=== PATIENT | male | born 1950 | race Caucasian/White ===

== ENCOUNTER 2020-10-30 00:34 | Inpatient (IN) | payer MEDICARE, OTHER ==
[~2020-10-30] VITALS: Ht 170.2 cm; Wt 119.4 kg
--- NOTE | 2020-10-30 05:05 | Tele-ICU Consult ---
History of Present Illness History of Present Illness Date Seen by Provider: Oct 30, 2020 Time Seen by Provider: 05:00 Date of Admission 70 M transferred from OSH for change in mental status and low SpO2 in 70's, changed to hi rebeca oxygen, 40 lpm 80% + COVID since 10/25, in ED remdesivir, decadron, azithromycin, also glu 300's pt poor historian, unable to reach family Past Medical/Social/Family Hx Patient Social History Tobacco Use?: Yes Smoking Status: Current Everyday Smoker Substance frequency: Once in a while Past Medical History GERD, HLD, DM, DJD, HTN, IBS s/p left knee replacment Review of Systems Constitutional: see HPI EENTM: see HPI Respiratory: see HPI Cardiovascular: see HPI Gastrointestinal: see HPI Genitourinary: see HPI Musculoskeletal: see HPI Skin: see HPI Psychiatric/Neurological: See HPI Sepsis Event Evaluation Height, Weight, BMI Height: '" Weight: lbs. oz. kg; BMI Method: Exam Exam Patient acknowledged, consented, and participated in this virtual visit which was conducted using real time audio/video Vital Signs Date Time Temp Pulse Resp B/P (MAP) Pulse Ox O2 Delivery O2 Flow Rate FiO2 10/30/20 04:30 94 Vapotherm 35.00 80 10/30/20 04:30 35.9 28 109/71 92 Vapotherm 35.00 80.00 10/30/20 04:30 80 Vapotherm 40 Height & Weight Height: '" Weight: lbs. oz. kg; BMI Method: General Appearance: Mild Distress Respiratory: Normal Breath Sounds, Accessory Muscle Use, Decreased Breath Sounds, Other (not working hard to breathe) Cardiovascular: Regular Rate, Rhythm Capillary Refill: Less Than 3 Seconds Gastrointestinal: normal bowel sounds, non tender Extremity: No Calf Tenderness, No Pedal Edema Neurologic/Psychiatric: Oriented x3, Other (poor memory) Assessment/Plan Assessment/Plan on vapotherm, SpO2 onlyin 80's, will change to BIPAP 12/5 FiO2 80%, get CXR Critical Care: Critically Ill Patient Time spent with patient (mins): 25 CHENCHO MCKEON MD Oct 30, 2020 05:05
[2020-10-30 05:17] VITALS: BP 128/81
[2020-10-30] MEDS ORDERED: LISI20TA26 PO (05:27)
[2020-10-30] MEDS ORDERED: GLMP2T PO (05:27)
[2020-10-30] MEDS ORDERED: ATOR20TA49 PO (05:27)
[2020-10-30] MEDS ORDERED: METF-397 PO (05:28)
[2020-10-30 05:53] LABS: BASOPHILS % (AUTO) 0 % (0-10); EOSINOPHILS % (AUTO) 0 % (0-10); HEMATOCRIT 39 % (40-54); HEMOGLOBIN 13.6 g/dL (13.3-17.7); LYMPHOCYTES # (AUTO) 0.4 10^3/uL (1.0-4.0); LYMPHOCYTES % (AUTO) 15 % (12-44); MEAN CORPUSCULAR HEMOGLOBIN 32 pg (25-34); MEAN CORPUSCULAR HGB CONC 35 g/dL (32-36); MEAN CORPUSCULAR VOLUME 92 fL (80-99); MEAN PLATELET VOLUME 12.1 fL (9.0-12.2); MONOCYTES # (AUTO) 0.1 10^3/uL (0.0-1.0); MONOCYTES % (AUTO) 4 % (0-12); NEUTROPHILS # (AUTO) 2.1 10^3/uL (1.8-7.8); NEUTROPHILS % (AUTO) 80 % (42-75); PLATELET COUNT 63 10^3/uL (130-400); WHITE BLOOD COUNT 2.7 10^3/uL (4.3-11.0)
[2020-10-30 06:02] LABS: ALBUMIN 3.4 GM/DL (3.2-4.5)
[2020-10-30 06:04] LABS: CALCIUM 7.9 MG/DL (8.5-10.1)
[2020-10-30 06:05] LABS: TOTAL PROTEIN 7.1 GM/DL (6.4-8.2)
[2020-10-30 06:07] LABS: BILIRUBIN,TOTAL 0.8 MG/DL (0.1-1.0)
[2020-10-30 06:08] LABS: PHOSPHORUS 4.6 MG/DL (2.3-4.7)
[2020-10-30 06:09] LABS: CREATININE SERUM 1.84 MG/DL (0.60-1.30)
[2020-10-30 06:11] LABS: MAGNESIUM 2.5 MG/DL (1.6-2.4)
[2020-10-30] MEDS ORDERED: SOD POLYSTERENE 15 GM/60 ML (KAYEXALATE) UNIT DOSE PO ONE (06:30)
[2020-10-30] MEDS ORDERED: guaiFENesin/DM (ROBITUSSIN DM) 10 ML UDC PO PRN (06:30)
[2020-10-30] MEDS ORDERED: diphenhydrAMINE 25 MG TAB (BENADRYL) PO PRN (06:30)
[2020-10-30] MEDS ORDERED: polyethylene glycoL POWDER 17 GM (MIRALAX) PACK PO PRN (06:30)
[2020-10-30] MEDS ORDERED: ANTACID SUSP 30 ML UDC (MYLANTA) PO PRN (06:30)
[2020-10-30] MEDS ORDERED: ONDANSETRON 4 MG (ZOFRAN) ORAL DISSOLVE TAB PO PRN (06:30)
[2020-10-30] MEDS ORDERED: ACETAMINOPHEN 325 MG TABLET PO PRN (06:30)
[2020-10-30] MEDS ORDERED: MELATONIN 3 MG TABLET PO PRN (06:30)
[2020-10-30] MEDS ORDERED: ONDANSETRON 4 MG/2 ML (SDV) Z0FRAN IV PRN (06:30)
[2020-10-30] MEDS: NS IV 1000 ML 1,000 ML IV SCH ×3 (06:56→22:14)
[2020-10-30 07:35] LABS: ABG BASE EXCESS -6.7 MMOL/L (-2.5-2.5); ABG OXYGEN SATURATION 91 % (94-100); ABG PCO2 36 MMHG (35-45); ABG PO2 69 MMHG (79-93); ABG TCO2 19.3 MMOL/L (21.0-31.0)
--- NOTE | 2020-10-30 07:39 | Diagnostic Imaging Report ---
EXAMINATION: Chest radiograph, portable AP view. DATE: 10/30/2020 5:56 AM INDICATION: 70-year-old male, hypoxia. History of COVID 19 pneumonia. COMPARISON: None. FINDINGS: Heart size is within normal limits. There is no identified pneumothorax. There is multifocal bilateral lung consolidation. IMPRESSION: 1. Multifocal bilateral lung consolidation which would be consistent with provided history of COVID 19 infection and multifocal pneumonia/pneumonitis although is not a specific imaging appearance. Report was faxed to [facility] by nora at 7:38AM. Dictated by: Dictated on workstation # [id number]
[2020-10-30 07:42] LABS: ABG PH 7.32 (7.37-7.43); ALLENS TEST YES-POS
[2020-10-30 07:43] LABS: INSPIRED O2 80%; PATIENT TEMP 37; VENTILATOR NO
[2020-10-30 07:46] VITALS: BP 125/30
[2020-10-30] MEDS: inSUlin ASPART (NovoLOG) 1 UNIT/0.01 ML (CHARGE PER UNIT) SC SCH ×2 (08:22→12:21)
--- NOTE | 2020-10-30 09:14 | Tele-ICU Progress Note ---
Subjective Date Seen by a Provider: Oct 30, 2020 Time Seen by a Provider: 09:14 Subjective/Events-last exam This patient last night admitted with Covid19 pneumonia currently he is on on BiPAP with 18/8 and 100% FiO2 with which his saturation is above 90%. His work of breathing is high. I have made a video visit and discussed with the RN that he would need to be intubated. He has a hyperglycemia with insulin on a sliding scale coverage. At this time we do not have much of a detailed history Review of Systems ROS PER ATTENDING PHYSICIAN Sepsis Event Evaluation Height, Weight, BMI Height: '" Weight: lbs. oz. kg; 36.21 BMI Method: Exam Exam Patient acknowledged, consented, and participated in this virtual visit which was conducted using real time audio/video Vital Signs Date Time Temp Pulse Resp B/P (MAP) Pulse Ox O2 Delivery O2 Flow Rate FiO2 10/30/20 09:00 67 23 111/69 91 NIV Bilevel 80.00 10/30/20 08:03 36.0 10/30/20 08:00 65 23 140/81 90 NIV Bilevel 80.00 10/30/20 07:46 66 30 93 100.00 10/30/20 07:00 64 19 140/93 94 NIV Bilevel 80.00 10/30/20 07:00 63 10/30/20 06:32 94 NIV Bilevel 80.00 10/30/20 06:00 60 23 112/69 91 NIV Bilevel 70.00 10/30/20 05:30 63 28 116/95 92 NIV Bilevel 70.00 10/30/20 05:17 63 23 95 70.00 10/30/20 05:15 92 NIV Bilevel 70.00 10/30/20 05:00 68 32 100/59 89 Vapotherm 35.00 80.00 10/30/20 04:45 69 14 96/62 94 Vapotherm 35.00 80.00 10/30/20 04:30 94 Vapotherm 35.00 80 10/30/20 04:30 70 10/30/20 04:30 35.9 28 109/71 92 Vapotherm 35.00 80.00 10/30/20 04:30 80 Vapotherm 40 10/30/20 04:15 66 14 125/66 94 Vapotherm 35.00 80.00 I & O 10/30/20 07:00 Intake Total 0 ml Output Total 0 ml Balance 0 ml Height & Weight Height: '" Weight: lbs. oz. kg; 36.21 BMI Method: General Appearance: Mild Distress Respiratory: Normal Breath Sounds, Accessory Muscle Use, Decreased Breath Sounds, Other (not working hard to breathe) Cardiovascular: Regular Rate, Rhythm Capillary Refill: Less Than 3 Seconds Gastrointestinal: normal bowel sounds, non tender Extremity: No Calf Tenderness, No Pedal Edema Neurologic/Psychiatric: Oriented x3, Other (poor memory) Other comments pe per RN Results Lab Laboratory Tests 10/30/20 05:40 Meds reviewed Radiology reviewed Assessment/Plan Assessment/Plan 1. Acute Covid19 pneumonia with ARDS. 2. Acute hypoxic respiratory failure currently on a BiPAP ventilation with increasing work of breathing. 3. Hyperglycemia probably secondary to steroids 4. High risk for DVT. Recommendations 1. I have discussed with the RN to discuss with the patient's family and attending physician and subsequently advised to intubate the patient and put on mechanical ventilation. 2. We will continue dexamethasone and insulin with a sliding scale coverage 3. DVT prophylaxis 4. Ulcer prophylaxis.. Critical Care: Critically Ill Patient Time spent with patient (mins): 35 HARRIS LEES MD Oct 30, 2020 09:14
[2020-10-30] MEDS ORDERED: PROPOFOL DRIP (ICU) 100 ML IV ONE ×2 (10:00→11:49)
[2020-10-30 10:43] VITALS: BP 86/61
--- NOTE | 2020-10-30 10:56 | Diagnostic Imaging Report ---
INDICATION: Intubation. FINDINGS: Endotracheal tube terminates 3.5 cm above the irvin. An enteric tube extends to the distal stomach or into the first portion of the duodenum. Lung volumes are diminished. Interstitial infiltrates throughout both lungs are slightly less apparent than on the previous exam. There is no large effusion or evidence of pneumothorax. Heart size is unchanged. IMPRESSION: 1. Appropriate positioning of endotracheal tube and enteric tube. 2. Diffuse bilateral interstitial infiltrates are less apparent likely relating to technique. Dictated by: Dictated on workstation # [id number]
[2020-10-30 10:57] LABS: POTASSIUM 4.7 MMOL/L (3.6-5.0)
[2020-10-30 10:58] LABS: CALCIUM 8.3 MG/DL (8.5-10.1)
--- NOTE | 2020-10-30 11:02 | Anesthesia-Procedure Note ---
Procedures/Interventions Procedure Start/Stop/Diagnosis Date of Procedure: Oct 30, 2020 Start Time: 09:45 Stop Time: 10:00 Intubation RSI: Yes Intubation Method: orotracheal Videoscope used: Yes Grade View: 1 Medications: Etomidate, Rocuronium, Succinylcholine Positive End Tide CO2: Yes Breath Sounds after Intubation: bilateral-equal Intubated with ease: Yes Intubation Complications: no complications Post Intubation Xray-done: Yes Care turned over to: icu MARIA ELENA LOPEZ CRNA Oct 30, 2020 11:02
[2020-10-30 11:03] LABS: CREATININE SERUM 1.77 MG/DL (0.60-1.30)
[2020-10-30] MEDS ORDERED: NS IV 1000 ML 1,000 ML IV SCH (11:30)
[2020-10-30] MEDS ORDERED: D5 1/2 NS 1000 ML IV SOLUTION 1,000 ML IV SCH (11:30)
[2020-10-30] MEDS: fentaNYL DRIP PRE-MIX 250 ML IV SCH (11:40)
[2020-10-30] MEDS: PANTOPRAZOLE 40 MG (PROTONIX) VIAL IV SCH (11:46)
--- NOTE | 2020-10-30 11:57 | CONSULTATION REPORT ---
DATE OF SERVICE: 10/30/2020 HISTORY OF PRESENT ILLNESS: The patient is a 70-year-old male, who presented to [facility] in [place] with complaints of shortness of breath. He reports that he has had associated fatigue and weakness for about 1 week. He reports that he did test positive for COVID on 10/25/2020 and had not gotten any better. He reports that he did not have the COVID vaccine. He also denied any chest pain as well as no nausea or vomiting and no diarrhea. His initial O2 sat was 88% and respirations are 25. It was decided that he would need a higher level of care than their facility and was then transferred to [facility]. After being admitted, he did have a change in mental status and O2 sats in the 70s on Vapotherm; however, the patient continued to decline and was eventually placed on BiPAP and eventually had to be intubated due to declining condition. We were then consulted for central line placement due to needing multiple medications as well as possible vasopressors. MEDICAL HISTORY: Arthritis, diabetes, gastroesophageal reflux disease, hypertension, hyperlipidemia, irritable bowel syndrome. PAST SURGICAL HISTORY: Left total knee arthroplasty 2019, dental surgery, left knee surgery in 1977, flexible colonoscopy with removal of tumor polyp by snare technique in 2018. ALLERGIES: SHELLFISH. MEDICATIONS: Atorvastatin 20 mg, glimepiride 2 mg, lisinopril 20 mg, metformin 500 mg. SOCIAL HISTORY: Positive for smoke. Rare for alcohol. FAMILY HISTORY: Mother, father, diabetes, hypertension. Brother, some form of cancer, hypertension. Father, stroke. VITAL SIGNS: Blood pressure 85/64, pulse 74, respirations 20, O2 95% on the ventilator. This is a well-nourished, obese male. He is currently on the ventilator and sedated and review of systems is unable to be obtained. PHYSICAL EXAMINATION: CHEST: Diminished breath sounds bilaterally. HEART: Regular, no murmurs. EXTREMITIES: No lower extremity edema. Negative Homans sign. HEENT: No scleral icterus. NECK: No cervical lymphadenopathy. ABDOMEN: Soft, nontender, nondistended. SKIN: Warm, dry and pink. NEUROLOGIC: Unable to assess at this time. ASSESSMENT AND PLAN: A 70-year-old male with respiratory distress secondary to being COVID positive. At this time, he has had a decline in status and will need a central line for possible vasopressors as well as the need for multiple medications. At this time, we will proceed with placement of a central venous catheter. Job ID: [id number] DocumentID: [id number] Dictated Date: 10/30/2020 11:34:23 Taxicab Dispatcher Date: 10/30/2020 11:57:03 Dictated By: GIRMA HOLT APRN
[2020-10-30] MEDS ORDERED: AZITHROMYCIN INJECTION 500 MG in NS (IVPB) 250 ML IV ONE (12:15)
[2020-10-30] MEDS ORDERED: CEFEPIME INJECTION 2,000 MG in WATER (STERILE) FOR INJECTION 20 ML IV ONE (12:15)
--- NOTE | 2020-10-30 12:30 | Diagnostic Imaging Report ---
EXAMINATION: Chest radiograph, portable AP view. DATE: 10/30/2020 12:11 PM INDICATION: 70-year-old male, central line placement. Intubated. COMPARISON: October 30, 2020 at 1018 hours. FINDINGS: The endotracheal tube is approximately 5.5 cm above the irvin. The left-sided intravenous line is new and overlies the mid SVC. Heart size and mediastinal contours are unchanged. There is no identified pneumothorax. There is no large pleural effusion. There are bilateral interstitial and/or alveolar opacities which are unchanged. IMPRESSION: 1. Newly placed left-sided central venous line overlies the mid SVC. 2. Unchanged bilateral interstitial and/or alveolar opacities. Dictated by: Dictated on workstation # [id number]
[2020-10-30] MEDS ORDERED: ROCURONIUM 10 MG/ML 5 ML SYRINGE IV ONE (13:00)
[2020-10-30] MEDS ORDERED: ETOMIDATE IV SOLN 20 MG/10 ML VIAL IV ONE (13:00)
[2020-10-30] MEDS ORDERED: SUCCINYLCHOLINE INJ 100 MG/5 ML SYR/VIAL INJ ONE (13:00)
[2020-10-30] MEDS: ENOXAPARIN 40 MG/0.4 ML (LOVENOX) SYR SC SCH (13:05)
[2020-10-30] MEDS: PROPOFOL DRIP (ICU) 100 ML IV SCH ×2 (13:35→18:32)
[2020-10-30 13:40] LABS: ABG BASE EXCESS -8.8 MMOL/L (-2.5-2.5); ABG OXYGEN SATURATION 98 % (94-100); ABG PCO2 37 MMHG (35-45); ABG PO2 103 MMHG (79-93); ABG TCO2 18.2 MMOL/L (21.0-31.0)
[2020-10-30 13:43] LABS: BILIRUBIN,URINE NEGATIVE (NEGATIVE); CLARITY,URINE SL CLOUDY; COLOR,URINE YELLOW; GLUCOSE, URINE (UA) 2+ (NEGATIVE); KETONES,URINE NEGATIVE (NEGATIVE); LEUKOCYTE ESTERASE ,URINE NEGATIVE (NEGATIVE); NITRITE,URINE NEGATIVE (NEGATIVE); PROTEIN,URINE TRACE (NEGATIVE)
[2020-10-30 13:45] LABS: ABG PH 7.28 (7.37-7.43); ALLENS TEST YES-POS
[2020-10-30 13:46] LABS: INSPIRED O2 80%; PATIENT TEMP 35.4; VENTILATOR YES
[2020-10-30 13:50] LABS: BACTERIA,URINE NEGATIVE /HPF; RBC,URINE RARE /HPF
[2020-10-30] MEDS ORDERED: SODIUM BICARB 8.4% 50 MEQ/50 ML (ABBOTT) SYR IV ONE (14:15)
--- NOTE | 2020-10-30 14:49 | OPERATIVE REPORT ---
DATE OF SERVICE: 10/30/2020 PREOPERATIVE DIAGNOSIS: COVID-19 respiratory failure. POSTOPERATIVE DIAGNOSIS: COVID-19 respiratory failure. PROCEDURE: Placement of left subclavian central venous catheter. SURGEON: Akin Luis MD ANESTHESIA: Local. ESTIMATED BLOOD LOSS: Minimal. DISPOSITION: The patient tolerated the procedure well. INDICATIONS: The patient is a 70-year-old male who began feeling fatigued as well as short of breath 10/25/2020 and was found to be positive. He continued to struggle with breathing and was admitted and initially placed on Vapotherm and then to a CPAP and eventually to an FiO2 of 100%. However, continued to decline with low oxygen saturation rates. He was then intubated. He has poor peripheral venous circulation and will require multiple IV drips and medications and will require a central venous catheter. DESCRIPTION OF PROCEDURE: The chest and neck were prepped and draped in standard surgical fashion. A 1% lidocaine was used to anesthetize the left subclavian region. The left subclavian vein was then cannulated with drawing of venous blood. The guidewire was then inserted without any resistance. Cannulating needle removed and a skin incision made using 11 blade. A tract was then created using a venous dilator and through this opening, a triple lumen central venous catheter was placed over the guidewire using Seldinger technique. The guidewire was removed, and all three ports isis venous blood and saline pushed in without any resistance. The catheter was then sutured to the skin using interrupted 3-0 silk sutures. Catheter was then cleaned and covered with Op-Site. The patient tolerated the procedure well. We will get a post-procedure chest x-ray. Job ID: [id number] DocumentID: [id number] Dictated Date: 10/30/2020 11:49:24 Canned Food Reconditioning Inspector Date: 10/30/2020 14:48:38 Dictated By: AKIN LUIS MD
[2020-10-30 15:31] VITALS: BP 101/67
[2020-10-30] MEDS: RT-ALBUTEROL/IPRATROPIUM 3 ML (DUONEB) VIAL INH SCH ×3 (15:31→22:05)
[2020-10-30 17:40] LABS: POTASSIUM 3.9 MMOL/L (3.6-5.0)
[2020-10-30 17:41] LABS: CALCIUM 7.6 MG/DL (8.5-10.1)
[2020-10-30 17:45] LABS: CREATININE SERUM 1.87 MG/DL (0.60-1.30)
[2020-10-30] MEDS ORDERED: CEFEPIME INJECTION 1,000 MG in WATER (STERILE) FOR INJECTION 10 ML IV SCH (18:00)
[2020-10-30] MEDS ORDERED: NS IV 500 ML 500 ML IV ONE (18:30)
[2020-10-30 18:52] VITALS: BP 97/59
--- NOTE | 2020-10-30 20:36 | History & Physical-Hospitalist ---
History of Present Illness HPI/Chief Complaint Diego Perry is a 70 year old male with PMH HTN, T2DM, HLD, obesity, who presented with shortness of breath. He reports feeling sick for weeks. He is very tired. He is wearing BiPAP. He would like to be put on the ventilator. He does not want to be on it senior care. He feels exhausted. If his heart stops he would like us to let him pass away naturally without resuscitative efforts. I spoke with his daughter via telephone and updated her on his condition and plan. Source: patient Exam Limitations: clinical condition Date Seen 10/30/20 Time Seen by a Provider: 09:20 Attending Physician Lovely Munroe MD PCP Referring Physician Date of Admission Oct 30, 2020 at 04:17 Home Medications & Allergies Home Medications Reviewed patient Home Medication Reconciliation performed by pharmacy medication reconciliations computer laboratory technician and/or nursing. Patients Allergies have been reviewed. Allergies Allergies Coded Allergies shellfish derived (Verified Allergy, Unknown, 10/30/20) PT REPORTS ALLERGY, UNKNOWN SEVERITY Past Ssifvjj-Smntud-Jontrd Hx Patient Social History Tobacco Use?: Yes Smoking Status: Current Everyday Smoker Use of E-Cig and/or Vaping dev: No Substance use?: No Substance frequency: Once in a while Alcohol Use?: No Pt feels they are or have been: No Immunizations Up To Date First/Initial COVID19 Vaccinat: PT UNABLE TO RECALL IF HE HAD CURRENT VACCINES FOR FLU/PNA/OR COVID 19 Past Medical History Hypertension, Hypotension Diabetes, Non-Insulin dep GERD, HLD, DM, DJD, HTN, IBS s/p left knee replacment Family Medical History No Pertinent Family Hx Review of Systems Constitutional: see HPI Physical Exam Physical Exam Vital Signs Vital Signs - First Documented 10/30/20 10/30/20 04:15 04:30 Temp 35.9 Pulse 66 Resp 14 B/P (MAP) 125/66 Pulse Ox 94 O2 Delivery Vapotherm O2 Flow Rate 35.00 80.00 FiO2 40 Capillary Refill : Less Than 3 Seconds Height, Weight, BMI Height: '" Weight: lbs. oz. kg; 36.21 BMI Method: General Appearance: Moderate Distress (uncomfortable, tired), Obese Respiratory: Decreased Breath Sounds, Respiratory Distress (tachypnea), Other (wearing BiPAP) Cardiovascular: Regular Rate, Rhythm, No Murmur Gastrointestinal: Normal Bowel Sounds, Non Tender, Soft Extremity: Normal Inspection, Non Tender, No Pedal Edema Neurologic/Psychiatric: Alert, Other (anxious, fatigued) Skin: Normal Color, Warm/Dry Results Results/Procedures Labs Laboratory Tests 10/30/20 05:40 10/30/20 09:16 10/30/20 17:07 Patient resulted labs reviewed. Imaging: Reviewed Imaging Report Assessment/Plan Admission Diagnosis Acute respiratory failure due to COVID-19 Admission Status: Inpatient Order (span 2 midnights) Reason for Inpatient Admission: Respiratory failure Assessment and Plan Acute respiratory failure due to COVID-19 Lymphopenia associated with COVID-19 Thrombocytopenia associated with COVID-19 Acute kidney injury due to COVID-19 COVID+, transferred from [facility] ER Requiring maximal support on BiPAP Plan to intubate Decadron Not given Remdesivir due to severe hypoxia Not given Actemra due to thrombocytopenia and prolonged course D-dimer moderately elevated Prophylactic Lovenox Procalcitonin elevated Started on Cefepime and Azithromycin IV fluids Monitor blood counts TeleICU consulted T2DM with ketoacidosis Hyperkalemia Hyponatremia Blood glucose >500, ketones elevated, acidotic Started on insulin gtt IV fluids Monitor and correct electrolytes as needed HTN HLD Home meds held Obesity Clinically significant, no acute management needs DVT prophylaxis: Lovenox Diagnosis/Problems Diagnosis/Problems (1) Acute respiratory failure due to COVID-19 Status: Acute (2) Lymphopenia associated with COVID-19 Status: Acute (3) Thrombocytopenia associated with COVID-19 Status: Acute (4) Acute kidney injury due to COVID-19 Status: Acute (5) Hyperkalemia Status: Acute (6) Hyponatremia Status: Acute (7) T2DM (type 2 diabetes mellitus) Status: Acute Qualifiers: Diabetes mellitus senior care insulin use: without senior care use Diabetes mellitus complication status: with ketoacidosis Diabetes mellitus complication detail: without coma Qualified Codes: E11.10 - Type 2 diabetes mellitus with ketoacidosis without coma (8) HTN (hypertension) Status: Chronic (9) HLD (hyperlipidemia) Status: Chronic (10) Obesity Status: Chronic LOVELY MUNROE MD Oct 30, 2020 20:36
[2020-10-30] MEDS: CEFEPIME INJECTION 1,000 MG in WATER (STERILE) FOR INJECTION 10 ML IV SCH (21:00)
[2020-10-30 22:05] VITALS: BP 90/60
[2020-10-31] MEDS: PROPOFOL DRIP (ICU) 100 ML IV SCH ×7 (00:57→19:59)
[2020-10-31] MEDS: RT-ALBUTEROL/IPRATROPIUM 3 ML (DUONEB) VIAL INH SCH ×6 (02:23→22:36)
[2020-10-31 02:24] VITALS: BP 94/53
[2020-10-31] MEDS ORDERED: NOREPINEPHRINE 8 MG/250 ML 250 ML IV ONE (02:56)
--- NOTE | 2020-10-31 02:59 | Tele-ICU Progress Note ---
Progress Note Pt with COVID PNA, On Vent , sedated. Hypotension, likely 2/2 sedation, will avoid fluid boluses, Levophed ordered with parameters. Interventions Major-Hypotension - evaluation and management Focused Exam Height, Weight, BMI Height: '" Weight: lbs. oz. kg; 36.21 BMI Method: FRANCISCO ALEXANDER MD Oct 31, 2020 02:59
[2020-10-31] MEDS: NOREPINEPHRINE 8 MG/250 ML 250 ML IV SCH ×2 (03:13→15:31)
[2020-10-31 03:28] LABS: ABG BASE EXCESS -3.3 MMOL/L (-2.5-2.5); ABG OXYGEN SATURATION 95 % (94-100); ABG PCO2 47 MMHG (35-45); ABG PO2 117 MMHG (79-93); ABG TCO2 23.6 MMOL/L (21.0-31.0); BASOPHILS % (AUTO) 0 % (0-10); EOSINOPHILS % (AUTO) 0 % (0-10); HEMATOCRIT 34 % (40-54); HEMOGLOBIN 11.2 g/dL (13.3-17.7); MEAN CORPUSCULAR HGB CONC 33 g/dL (32-36); PLATELET COUNT 88 10^3/uL (130-400)
[2020-10-31 03:30] LABS: LYMPHOCYTES # (AUTO) 0.3 10^3/uL (1.0-4.0); LYMPHOCYTES % (AUTO) 7 % (12-44); MEAN CORPUSCULAR HEMOGLOBIN 32 pg (25-34); MEAN CORPUSCULAR VOLUME 96 fL (80-99); MEAN PLATELET VOLUME 11.8 fL (9.0-12.2); MONOCYTES # (AUTO) 0.1 10^3/uL (0.0-1.0); MONOCYTES % (AUTO) 4 % (0-12); NEUTROPHILS # (AUTO) 3.4 10^3/uL (1.8-7.8); NEUTROPHILS % (AUTO) 89 % (42-75); WHITE BLOOD COUNT 3.9 10^3/uL (4.3-11.0)
[2020-10-31 03:33] LABS: ALLENS TEST YES-POS; PATIENT TEMP 36.8; VENTILATOR YES
[2020-10-31 03:37] LABS: POTASSIUM 3.2 MMOL/L (3.6-5.0)
[2020-10-31 03:38] LABS: CALCIUM 7.1 MG/DL (8.5-10.1)
[2020-10-31 03:40] LABS: TOTAL PROTEIN 5.6 GM/DL (6.4-8.2)
[2020-10-31 03:41] LABS: BILIRUBIN,TOTAL 0.4 MG/DL (0.1-1.0)
[2020-10-31 03:43] LABS: CREATININE SERUM 1.81 MG/DL (0.60-1.30); PHOSPHORUS 2.7 MG/DL (2.3-4.7)
[2020-10-31 03:46] LABS: MAGNESIUM 2.5 MG/DL (1.6-2.4)
[2020-10-31] MEDS: CEFEPIME INJECTION 1,000 MG in WATER (STERILE) FOR INJECTION 10 ML IV SCH ×3 (04:00→19:59)
[2020-10-31 04:04] LABS: BAND NEUTROPHILS 5 %; LYMPHOCYTES % (MANUAL) 8 %; MONOCYTES % (MANUAL) 3 %; NEUTROPHILS % (MANUAL) 84 %; RBC MORPH NORMAL
[2020-10-31] MEDS ORDERED: POTASSIUM CL 10MEQ/50ML IVPB 200 ML IV ONE (04:18)
[2020-10-31] MEDS: POTASSIUM CL 10MEQ/50ML IVPB 50 ML IV SCH ×3 (04:43→05:37)
[2020-10-31] MEDS: NS IV 1000 ML 1,000 ML IV SCH ×3 (05:36→20:03)
[2020-10-31 07:28] VITALS: BP 106/61
--- NOTE | 2020-10-31 07:51 | Tele-ICU Progress Note ---
Subjective Date Seen by a Provider: Oct 31, 2020 Time Seen by a Provider: 07:48 Subjective/Events-last exam he was started on low dose levophed and insulin drip. glucoe is 99 on insulin 22 units drip. vent settings are 45% fio2/rr22 peep22/tv 450 Review of Systems ROS PER ATTENDING PHYSICIAN Sepsis Event Evaluation Height, Weight, BMI Height: '" Weight: lbs. oz. kg; 36.21 BMI Method: Exam Exam Patient acknowledged, consented, and participated in this virtual visit which was conducted using real time audio/video Vital Signs Date Time Temp Pulse Resp B/P (MAP) Pulse Ox O2 Delivery O2 Flow Rate FiO2 10/31/20 07:28 76 22 94 45 10/31/20 07:00 77 10/31/20 06:00 36.3 82 22 107/59 95 Mechanical Ventilator 50.00 10/31/20 05:00 36.3 86 22 121/66 96 Mechanical Ventilator 50.00 10/31/20 04:00 36.3 86 22 98/58 95 Mechanical Ventilator 50.00 10/31/20 03:58 95 Mechanical Ventilator 50 10/31/20 03:19 36.3 Mechanical Ventilator 50.00 10/31/20 03:15 36.3 95 22 95/46 93 Mechanical Ventilator 50.00 10/31/20 03:13 80/49 10/31/20 02:24 97 22 94 50 10/31/20 02:00 36.3 81 22 98/62 96 Mechanical Ventilator 50.00 10/31/20 01:00 86 10/31/20 01:00 36.3 86 22 94/63 96 Mechanical Ventilator 50.00 10/31/20 00:57 86 10/31/20 00:06 96 Mechanical Ventilator 50 10/31/20 00:00 36.2 85 18 101/60 96 Mechanical Ventilator 50.00 10/30/20 23:00 36.3 91 22 95/63 95 Mechanical Ventilator 50.00 10/30/20 22:53 36.5 Mechanical Ventilator 50.00 10/30/20 22:17 36.6 Mechanical Ventilator 50.00 10/30/20 22:05 73 22 97 50 10/30/20 22:00 36.5 72 22 90/60 97 Mechanical Ventilator 55.00 10/30/20 21:00 36.4 79 22 94/61 97 Mechanical Ventilator 55.00 10/30/20 20:00 36.4 73 22 98/63 97 Mechanical Ventilator 55.00 10/30/20 20:00 93 Mechanical Ventilator 55 10/30/20 19:00 73 10/30/20 19:00 36.3 Mechanical Ventilator 55.00 10/30/20 19:00 36.3 73 22 95/57 97 Mechanical Ventilator 55.00 10/30/20 18:52 70 22 98 55 10/30/20 18:32 70 85/62 10/30/20 18:00 36.2 70 22 93/62 98 Mechanical Ventilator 100.00 10/30/20 17:00 36.0 71 22 96/66 95 Mechanical Ventilator 100.00 10/30/20 16:25 94 Mechanical Ventilator 65 10/30/20 16:00 35.6 70 22 91/68 94 Mechanical Ventilator 100.00 10/30/20 15:31 63 22 92 65 10/30/20 15:00 35.3 63 22 85/61 100 Mechanical Ventilator 100.00 10/30/20 14:00 65 32 100/75 100 Mechanical Ventilator 100.00 10/30/20 13:35 71 85/64 10/30/20 13:00 65 39 105/81 100 Mechanical Ventilator 100.00 10/30/20 13:00 71 10/30/20 12:45 94 Mechanical Ventilator 100 10/30/20 12:18 35.0 10/30/20 12:00 70 21 110/72 100 Mechanical Ventilator 100.00 10/30/20 11:00 74 20 85/64 95 NIV Bilevel 80.00 10/30/20 10:43 77 20 96 65 10/30/20 10:00 69 27 114/66 90 NIV Bilevel 80.00 10/30/20 09:00 67 23 111/69 91 NIV Bilevel 80.00 10/30/20 08:10 92 NIV Bilevel 100 10/30/20 08:03 36.0 10/30/20 08:00 65 23 140/81 90 NIV Bilevel 80.00 I & O 10/31/20 07:00 Intake Total 3270 ml Output Total 2300 ml Balance 970 ml Height & Weight Height: '" Weight: lbs. oz. kg; 36.21 BMI Method: General Appearance: Moderate Distress (uncomfortable, tired), Obese Respiratory: Decreased Breath Sounds, Respiratory Distress (tachypnea), Other (INTUBATED, ON VENTILLATOR) Cardiovascular: Regular Rate, Rhythm, No Murmur Capillary Refill: Less Than 3 Seconds Gastrointestinal: normal bowel sounds, non tender Extremity: Normal Inspection, Non Tender, No Pedal Edema Neurologic/Psychiatric: Alert, Other (anxious, fatigued) Skin: Normal Color, Warm/Dry Other comments PE PER ATTENDING PHYSICIAN Results Lab Laboratory Tests 10/30/20 05:40 10/30/20 09:16 10/30/20 17:07 10/31/20 03:10 Meds reviewed Radiology cxr reviewed Assessment/Plan Assessment/Plan Assessment/Plan 1. Acute Covid19 pneumonia with ARDS. 2. Acute hypoxic respiratory failure currently on a BiPAP ventilation with increasing work of breathing. 3. Hyperglycemia probably secondary to steroids 4. High risk for DVT. Recommendations 1. continue current vent settings and wean fio2 first and the slowly wean peep 2. We will continue dexamethasone and start levmir 20 units s/q this am start to wean insulin drip in the next 2-3 hours..ISS 3. DVT prophylaxis 4. Ulcer prophylaxis. Critical Care: Critically Ill Patient Time spent with patient (mins): 35 HARRIS LEES MD Oct 31, 2020 07:51
--- NOTE | 2020-10-31 07:52 | Diagnostic Imaging Report ---
INDICATION: Pneumonia, intubated. TECHNIQUE: Single view chest 4:30 AM. CORRELATION STUDY: 10/30/2020 FINDINGS: Endotracheal tube, left-sided central line and gastric tube remain in place. Heart size and mediastinum are generally stable. Vasculature appears slightly increased. Bilateral pulmonary opacities overall appear adversely changed from prior. Question small pleural effusions. IMPRESSION: 1. Stable support lines and tubes. 2. Increasing mixed alveolar and interstitial pulmonary opacities at both lung ni, left greater than right. Probable bilateral pleural effusions also adversely changed. Dictated by: Dictated on workstation # [id number]
--- NOTE | 2020-10-31 08:20 | Progress Note - Hospitalist ---
Subjective HPI/CC On Admission Date Seen by Provider: Oct 31, 2020 Time Seen by Provider: 12:30 Diego Perry is a 70 year old male with PMH HTN, T2DM, HLD, obesity, who presented with shortness of breath. He reports feeling sick for weeks. He is very tired. He is wearing BiPAP. He would like to be put on the ventilator. 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 If his heart stops he would like us to let him pass away naturally without resuscitative efforts. I spoke with his daughter via telephone and updated her on his condition and plan. Subjective/Events-last exam Patient maintained on ventilator Off insulin drip Levophed at 0.11 mcg infusion PEEP of 8 FiO2 of 45% Objective Exam Vital Signs Vital Signs Date Time Temp Pulse Resp B/P (MAP) Pulse Ox O2 Delivery O2 Flow Rate FiO2 10/31/20 16:20 92 Mechanical Ventilator 50 10/31/20 16:00 36.9 101 23 159/76 50.00 Capillary Refill : Less Than 3 Seconds General Appearance: No Apparent Distress, WD/WN, Chronically ill, Other (Intubated and sedated) Respiratory: Lungs Clear Cardiovascular: Regular Rate, Rhythm Results/Procedures Lab Laboratory Tests 10/31/20 03:10 Patient resulted labs reviewed. Imaging: Reviewed Imaging Report Assessment/Plan Assessment and Plan Assess & Plan/Chief Complaint Assessment: Acute respiratory failure due to COVID-19 Lymphopenia associated with COVID-19 Thrombocytopenia associated with COVID-19 Acute kidney injury due to COVID-19 COVID+, transferred from [facility] ER Failed BiPAP intubated now Decadron Not given Remdesivir due to severe hypoxia Not given Actemra due to thrombocytopenia and prolonged course D-dimer moderately elevated Prophylactic Lovenox Procalcitonin elevated Maintained on Cefepime and Azithromycin IV fluids Monitor blood counts TeleICU consulted T2DM with ketoacidosis now off insulin drip Hyperkalemia Hyponatremia Blood glucose >500, ketones elevated, acidotic Started on insulin gtt IV fluids Monitor and correct electrolytes as needed HTN HLD Home meds held Obesity Clinically significant, no acute management needs DVT prophylaxis: Lovenox Critical Care Critically Ill Patient DIANA CASTILLO DO Oct 31, 2020 08:20
[2020-10-31] MEDS: PANTOPRAZOLE 40 MG (PROTONIX) VIAL IV SCH (08:34)
[2020-10-31] MEDS: AZITHROMYCIN INJECTION 250 MG in NS (IVPB) 250 ML IV SCH (08:52)
[2020-10-31 09:37] VITALS: BP 134/71
[2020-10-31] MEDS: fentaNYL DRIP PRE-MIX 250 ML IV SCH ×2 (09:56→19:58)
[2020-10-31] MEDS: ENOXAPARIN 40 MG/0.4 ML (LOVENOX) SYR SC SCH (12:17)
[2020-10-31] MEDS: inSUlin ASPART (NovoLOG) 1 UNIT/0.01 ML (CHARGE PER UNIT) SQ SCH ×3 (12:17→23:36)
[2020-10-31 18:18] VITALS: BP 142/73
[2020-10-31] MEDS ORDERED: inSUlin ASPART (NovoLOG) 1 UNIT/0.01 ML (CHARGE PER UNIT) SC SCH (18:30)
[2020-10-31 22:36] VITALS: BP 135/66
[2020-11-01] MEDS: PROPOFOL DRIP (ICU) 100 ML IV SCH ×6 (02:19→21:13)
[2020-11-01 02:24] VITALS: BP 134/68
[2020-11-01] MEDS: RT-ALBUTEROL/IPRATROPIUM 3 ML (DUONEB) VIAL INH SCH ×6 (02:24→22:23)
[2020-11-01] MEDS: NOREPINEPHRINE 8 MG/250 ML 250 ML IV SCH ×2 (04:32→17:58)
[2020-11-01] MEDS: NS IV 1000 ML 1,000 ML IV SCH ×3 (04:32→21:13)
[2020-11-01 04:44] LABS: ABG BASE EXCESS -6.2 MMOL/L (-2.5-2.5); ABG OXYGEN SATURATION 90 % (94-100); ABG PCO2 38 MMHG (35-45); ABG PO2 58 MMHG (79-93); ABG TCO2 19.9 MMOL/L (21.0-31.0); BASOPHILS % (AUTO) 0 % (0-10); EOSINOPHILS % (AUTO) 0 % (0-10); HEMATOCRIT 34 % (40-54); HEMOGLOBIN 11.1 g/dL (13.3-17.7); LYMPHOCYTES # (AUTO) 0.3 10^3/uL (1.0-4.0); LYMPHOCYTES % (AUTO) 5 % (12-44); MEAN CORPUSCULAR HEMOGLOBIN 32 pg (25-34); MEAN CORPUSCULAR HGB CONC 33 g/dL (32-36); MEAN CORPUSCULAR VOLUME 96 fL (80-99); MEAN PLATELET VOLUME 10.7 fL (9.0-12.2); MONOCYTES # (AUTO) 0.5 10^3/uL (0.0-1.0); MONOCYTES % (AUTO) 7 % (0-12); NEUTROPHILS # (AUTO) 6.5 10^3/uL (1.8-7.8); NEUTROPHILS % (AUTO) 88 % (42-75); PLATELET COUNT 164 10^3/uL (130-400); WHITE BLOOD COUNT 7.4 10^3/uL (4.3-11.0)
[2020-11-01 04:46] LABS: ABG PH 7.32 (7.37-7.43)
[2020-11-01 04:47] LABS: ALLENS TEST YES-POS; INSPIRED O2 60%; VENTILATOR YES
[2020-11-01 04:54] LABS: ALBUMIN 2.9 GM/DL (3.2-4.5); POTASSIUM 4.7 MMOL/L (3.6-5.0)
[2020-11-01 04:55] LABS: CALCIUM 7.4 MG/DL (8.5-10.1)
[2020-11-01 04:56] LABS: TOTAL PROTEIN 5.6 GM/DL (6.4-8.2)
[2020-11-01 04:58] LABS: BILIRUBIN,TOTAL 0.5 MG/DL (0.1-1.0)
[2020-11-01 05:00] LABS: CREATININE SERUM 1.3 MG/DL (0.60-1.30); PHOSPHORUS 2.3 MG/DL (2.3-4.7)
[2020-11-01 05:03] LABS: MAGNESIUM 2.7 MG/DL (1.6-2.4)
[2020-11-01] MEDS: fentaNYL DRIP PRE-MIX 250 ML IV SCH ×3 (05:19→23:57)
[2020-11-01] MEDS: CEFEPIME INJECTION 1,000 MG in WATER (STERILE) FOR INJECTION 10 ML IV SCH ×4 (05:19→23:56)
[2020-11-01] MEDS: inSUlin ASPART (NovoLOG) 1 UNIT/0.01 ML (CHARGE PER UNIT) SC SCH ×4 (05:28→23:56)
[2020-11-01] MEDS: POTASSIUM CL 10MEQ/50ML IVPB 50 ML IV SCH (05:56)
[2020-11-01] MEDS: KCL 20 MEQ TAB (K-DUR) PO SCH (05:57)
[2020-11-01] MEDS: MAGNESIUM 1 GM/100 ML IVPB 100 ML IV SCH (05:57)
[2020-11-01 07:16] VITALS: BP 131/65
[2020-11-01] MEDS: PANTOPRAZOLE 40 MG (PROTONIX) VIAL IV SCH (08:05)
[2020-11-01] MEDS: AZITHROMYCIN INJECTION 250 MG in NS (IVPB) 250 ML IV SCH (08:06)
[2020-11-01 09:34] VITALS: BP 110/63
--- NOTE | 2020-11-01 10:00 | Tele-ICU Progress Note ---
Subjective Date Seen by a Provider: Nov 01, 2020 Time Seen by a Provider: 10:00 Sepsis Event Evaluation Height, Weight, BMI Height: '" Weight: lbs. oz. kg; 36.21 BMI Method: Exam Exam Patient acknowledged, consented, and participated in this virtual visit which was conducted using real time audio/video Vital Signs Date Time Temp Pulse Resp B/P (MAP) Pulse Ox O2 Delivery O2 Flow Rate FiO2 11/01/20 09:34 82 22 92 65 11/01/20 08:23 85 131/65 11/01/20 08:23 85 131/65 11/01/20 08:13 93 Mechanical Ventilator 60 11/01/20 07:16 85 23 92 60 11/01/20 07:00 86 11/01/20 06:00 37.7 84 18 124/68 92 Mechanical Ventilator 60.00 11/01/20 05:00 37.7 87 22 128/66 92 Mechanical Ventilator 60.00 11/01/20 04:32 86 135/68 11/01/20 04:00 37.6 86 22 135/68 92 Mechanical Ventilator 60.00 11/01/20 04:00 90 Mechanical Ventilator 60 11/01/20 03:00 37.5 87 22 127/68 92 Mechanical Ventilator 60.00 11/01/20 02:24 80 23 92 60 11/01/20 02:19 85 135/66 11/01/20 02:19 85 135/66 11/01/20 02:00 37.5 77 23 133/70 94 Mechanical Ventilator 60.00 11/01/20 01:36 Mechanical Ventilator 60.00 11/01/20 01:00 37.4 82 22 129/71 89 Mechanical Ventilator 50.00 11/01/20 01:00 82 11/01/20 00:00 37.4 87 20 131/69 91 Mechanical Ventilator 50.00 10/31/20 23:59 90 Mechanical Ventilator 50 10/31/20 23:00 37.3 87 22 129/67 90 Mechanical Ventilator 50.00 10/31/20 22:36 85 22 91 50 10/31/20 22:00 37.3 86 22 129/66 91 Mechanical Ventilator 50.00 10/31/20 21:00 37.3 82 22 124/67 90 Mechanical Ventilator 50.00 10/31/20 20:00 90 Mechanical Ventilator 50 10/31/20 20:00 37.2 79 22 129/69 92 Mechanical Ventilator 50.00 10/31/20 19:59 84 142/73 10/31/20 19:58 84 142/73 10/31/20 19:00 37.1 84 22 140/71 92 Mechanical Ventilator 50.00 10/31/20 19:00 82 10/31/20 18:18 84 24 91 50 10/31/20 18:00 37.1 91 26 147/75 92 Mechanical Ventilator 50.00 10/31/20 17:00 37.1 89 23 134/70 92 Mechanical Ventilator 50.00 10/31/20 16:20 92 Mechanical Ventilator 50 10/31/20 16:00 36.9 101 23 159/76 92 Mechanical Ventilator 50.00 10/31/20 15:32 83 138/67 10/31/20 15:31 83 124/83 10/31/20 15:31 83 138/67 10/31/20 15:00 36.8 83 138/67 94 Mechanical Ventilator 50.00 10/31/20 14:00 36.7 79 22 142/94 94 Mechanical Ventilator 50.00 10/31/20 13:00 89 10/31/20 13:00 36.7 81 22 135/67 94 Mechanical Ventilator 50.00 10/31/20 12:51 92 Mechanical Ventilator 50 10/31/20 12:18 89 131/82 10/31/20 12:00 36.5 89 13 146/67 90 Mechanical Ventilator 50.00 10/31/20 11:00 36.3 78 22 146/74 94 Mechanical Ventilator 50.00 I & O 11/01/20 07:00 Intake Total 1250 ml Output Total 2800 ml Balance -1550 ml Height & Weight Height: '" Weight: lbs. oz. kg; 36.21 BMI Method: General Appearance: No Apparent Distress, WD/WN, Chronically ill, Other (Intubated and sedated) Respiratory: Lungs Clear Cardiovascular: Regular Rate, Rhythm Capillary Refill: Less Than 3 Seconds Gastrointestinal: normal bowel sounds, non tender Extremity: Normal Inspection, Non Tender, No Pedal Edema Neurologic/Psychiatric: Alert, Other (anxious, fatigued) Skin: Normal Color, Warm/Dry Results Lab Laboratory Tests 10/30/20 17:07 10/31/20 03:10 11/01/20 04:15 Assessment/Plan Assessment/Plan (Tele-ICU Physician , Progress Note ) Available chart/ vitals / labs / Images reviewed Video assessment done using teleICU camera, rest of exam as per RN Discussed with RN , EXAM PER RN Events overnight : Afebrile I/O = EVEN Drips: NA 125 Pressors: , hemodynamically stable Sedation gtt: ( RASS ) propof fent VENT SETTINGS and ABG reviewed Not candidate for SBT today Contraindications: Cardiovascular Stability / Sedation Score / FI02/PEEP / ABG / CXR Consultants: Hospital course: 10/30-transferred from OSH for change in mental status and low SpO2 in 70's, changed to hi rebeca oxygen, 40 lpm 80% 10/31 - INTUBATED - 45% fio2/rr22 peep22/tv 450 A/P AHRF / ARDS due to severe COVID19 - ac 500 60% peep 8 - will adjust TV 7 cc kg - ac rr 26 tv 460 WORSENING SaO2 WILL START PRONING DRRZ-Aouicmbclya-1/COVID-19 PNA ( Not vaccinated , Dx 10/25 ) -not given Remdesivir or Actemra -Steroids IV - started -Hypercoagulable state , DDIMER 1.5on 10/30 -> lovenox ppx dose , follow D dimer Suspected superimposed bact PNA -empiric abx Cefepime and Azithromycin 10/30 Cx sputum Shock - levo to wean ED - improving , NS 125 - monitor for VO Thrombocytopenia associated with COVID-19 T2DM with ketoacidosis -now off insulin drip transaminitis likely due to COVID-19. Lines : (Central Line Necessity Reviewed) Weston: + OG: + Nutrition: start TF 11/01 Analgesia: Anxiety/ delirium VTE Prophylaxis: aristides proph Stress Ulcer Prophylaxis: pepcid Glycemic Control: Plans in collaboration with bedside consultants and IM MDs. Discussed with RN to reach out if any questions or concerns A total of 40 minutes of critical care time was devoted to this patient today, required to treat and/or prevent further deterioration of critical care condition ( as above) . EMILIANO CARTER MD Nov 01, 2020 10:00
[2020-11-01] MEDS: inSUlin (REGULAR) HUMAN 1 UNIT/0.01 ML (CHARGE PER UNIT) SC SCH ×3 (11:16→21:12)
[2020-11-01] MEDS: ENOXAPARIN 40 MG/0.4 ML (LOVENOX) SYR SC SCH (11:43)
[2020-11-01] MEDS ORDERED: GLIM2TAB4 PO (12:57)
[2020-11-01] MEDS ORDERED: METF-865 PO (12:57)
[2020-11-01] MEDS ORDERED: ATOR20TA66 PO (12:57)
[2020-11-01 14:50] VITALS: BP 116/62
--- NOTE | 2020-11-01 14:52 | Progress Note - Hospitalist ---
ELIZABETH AGOSTO 11/01/20 1452: Subjective HPI/CC On Admission Date Seen by Provider: Nov 01, 2020 Time Seen by Provider: 10:30 Diego Perry is a 70 year old male with PMH HTN, T2DM, HLD, obesity, who presented with shortness of breath. He reports feeling sick for weeks. He is very tired. He is wearing BiPAP. He would like to be put on the ventilator. 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 If his heart stops he would like us to let him pass away naturally without resuscitative efforts. I spoke with his daughter via telephone and updated her on his condition and plan. Subjective/Events-last exam Mr. Perry continues to be intubated and sedated. Current ventilator settings are the following: RR23, FIO2 66, Tidal Volume 497, PEEP 8. Current settings have been stable Objective Exam Vital Signs Vital Signs Date Time Temp Pulse Resp B/P (MAP) Pulse Ox O2 Delivery O2 Flow Rate FiO2 11/01/20 14:50 73 22 96 40 11/01/20 14:33 139/63 11/01/20 11:59 Mechanical Ventilator 11/01/20 11:00 37.2 60.00 Capillary Refill : Less Than 3 Seconds General Appearance: No Apparent Distress, Chronically ill, Obese Cardiovascular: Regular Rate, Rhythm, Normal Peripheral Pulses Gastrointestinal: Normal Bowel Sounds Extremity: Normal Capillary Refill Skin: Normal Color, Warm/Dry Results/Procedures Lab Laboratory Tests 11/01/20 04:15 Patient resulted labs reviewed. Imaging: Reviewed Imaging Report Assessment/Plan Assessment and Plan Assess & Plan/Chief Complaint Diego Perry is a 70 yo M with a PMH of HTN, HLD, GERD who is currently in the ICU for COVID 19 pneumonia requiring intubation and sedation. Plan: -Continue to monitor labs -Monitor and adjust ventilator settings as needed. -Insulin Novolin and Determir (20 units) for increased management of hyperglycemia -Continue Cefepime and azithromycin -Continue enoxaparin, dexamethasone and nebulizers Critical Care: Ventilator Management LILLIAM CASTILLO DO 11/02/20 0543: Subjective Subjective/Events-last exam Pt still intubated Now prone position CXR looks progressive Tidal volume of 500 and PEEP of 8 Blood sugar still elevated will initiate more insulin of regular type Objective Exam General Appearance: No Apparent Distress, WD/WN, Chronically ill, Obese, Other (Sedated and intubated) Respiratory: Lungs Clear Cardiovascular: Regular Rate, Rhythm Assessment/Plan Assessment and Plan Assess & Plan/Chief Complaint Supportive care Ventilator management appreciated Supervisory-Addendum Brief Verification & Attestation Participated in pt care: history, MDM, physical Personally performed: exam, history, MDM, supervision of care Care discussed with: Medical Student Procedures: n/a Results interpretation: Verified all documentation Verification and Attestation of Medical Student E/M Service A medical student performed and documented this service in my presence. I re viewed and verified all information documented by the medical student and made modifications to such information, when appropriate. I personally performed the physical exam and medical decision making. Lilliam Castillo, Nov 02, 2020,05:42 ELIZABETH AGOSTO Nov 01, 2020 14:52 LILLIAM CASTILLO DO Nov 02, 2020 05:43
[2020-11-01 18:44] VITALS: BP 112/59
[2020-11-01] MEDS ORDERED: inSUlin ASPART (NovoLOG) 1 UNIT/0.01 ML (CHARGE PER UNIT) SC SCH ×2 (19:00→19:30)
[2020-11-01 22:24] VITALS: BP 105/58
[2020-11-02 02:20] VITALS: BP 106/63
[2020-11-02] MEDS: RT-ALBUTEROL/IPRATROPIUM 3 ML (DUONEB) VIAL INH SCH ×6 (02:20→22:08)
[2020-11-02] MEDS: PROPOFOL DRIP (ICU) 100 ML IV SCH ×5 (03:24→20:08)
[2020-11-02 03:40] LABS: ABG BASE EXCESS -6.6 MMOL/L (-2.5-2.5); ABG OXYGEN SATURATION 94 % (94-100); ABG PCO2 43 MMHG (35-45); ABG PO2 73 MMHG (79-93); ABG TCO2 20.5 MMOL/L (21.0-31.0)
[2020-11-02 03:44] LABS: ABG PH 7.27 (7.37-7.43); ALLENS TEST YES-POS; BASOPHILS % (AUTO) 0 % (0-10); EOSINOPHILS % (AUTO) 0 % (0-10); HEMATOCRIT 32 % (40-54); HEMOGLOBIN 10.1 g/dL (13.3-17.7); INSPIRED O2 60%; LYMPHOCYTES # (AUTO) 0.4 10^3/uL (1.0-4.0); LYMPHOCYTES % (AUTO) 8 % (12-44); MEAN CORPUSCULAR HEMOGLOBIN 32 pg (25-34); MEAN CORPUSCULAR HGB CONC 31 g/dL (32-36); MEAN CORPUSCULAR VOLUME 101 fL (80-99); MEAN PLATELET VOLUME 10.5 fL (9.0-12.2); MONOCYTES # (AUTO) 0.3 10^3/uL (0.0-1.0); MONOCYTES % (AUTO) 6 % (0-12); NEUTROPHILS # (AUTO) 4.3 10^3/uL (1.8-7.8); NEUTROPHILS % (AUTO) 84 % (42-75); PATIENT TEMP 36.8; PLATELET COUNT 150 10^3/uL (130-400); VENTILATOR YES; WHITE BLOOD COUNT 5.2 10^3/uL (4.3-11.0)
[2020-11-02 03:59] LABS: ALBUMIN 2.8 GM/DL (3.2-4.5); POTASSIUM 4.8 MMOL/L (3.6-5.0)
[2020-11-02 04:01] LABS: CALCIUM 7.2 MG/DL (8.5-10.1)
[2020-11-02 04:02] LABS: TOTAL PROTEIN 5.2 GM/DL (6.4-8.2)
[2020-11-02 04:04] LABS: BILIRUBIN,TOTAL 0.4 MG/DL (0.1-1.0)
[2020-11-02 04:05] LABS: PHOSPHORUS 2.4 MG/DL (2.3-4.7)
[2020-11-02 04:06] LABS: CREATININE SERUM 0.96 MG/DL (0.60-1.30)
[2020-11-02 04:08] LABS: MAGNESIUM 2.8 MG/DL (1.6-2.4)
[2020-11-02] MEDS: KCL 20 MEQ TAB (K-DUR) PO SCH (04:42)
[2020-11-02] MEDS: POTASSIUM CL 10MEQ/50ML IVPB 50 ML IV SCH (04:42)
[2020-11-02] MEDS: NOREPINEPHRINE 8 MG/250 ML 250 ML IV SCH ×2 (04:42→16:56)
[2020-11-02] MEDS: MAGNESIUM 1 GM/100 ML IVPB 100 ML IV SCH (04:42)
[2020-11-02] MEDS ORDERED: LACTATED RINGERS 1,000 ML IV ONE (05:13)
[2020-11-02] MEDS: CEFEPIME INJECTION 1,000 MG in WATER (STERILE) FOR INJECTION 10 ML IV SCH ×3 (05:19→17:42)
[2020-11-02] MEDS: LACTATED RINGERS 1,000 ML IV SCH ×2 (05:19→17:42)
[2020-11-02] MEDS: inSUlin (REGULAR) HUMAN 1 UNIT/0.01 ML (CHARGE PER UNIT) SC SCH ×4 (05:20→21:20)
[2020-11-02] MEDS: inSUlin ASPART (NovoLOG) 1 UNIT/0.01 ML (CHARGE PER UNIT) SC SCH ×3 (05:20→17:43)
[2020-11-02 07:13] VITALS: BP 114/62
[2020-11-02] MEDS: fentaNYL DRIP PRE-MIX 250 ML IV SCH ×3 (08:22→21:35)
[2020-11-02] MEDS: AZITHROMYCIN INJECTION 250 MG in NS (IVPB) 250 ML IV SCH (08:23)
[2020-11-02] MEDS: PANTOPRAZOLE 40 MG (PROTONIX) VIAL IV SCH (08:23)
[2020-11-02] MEDS ORDERED: MIDAZOLAM DRIP PRE-MIX 100 ML IV ONE (09:47)
[2020-11-02] MEDS: MIDAZOLAM DRIP PRE-MIX 100 ML IV SCH (09:55)
--- NOTE | 2020-11-02 10:14 | Diagnostic Imaging Report ---
INDICATION: Intubation. Frontal chest obtained at 0957 a.m. and compared to 10/31/2020. ET tube tip overlies mid trachea. NG tube tip overlies distal stomach. Left-sided central venous catheter tip overlies mid SVC. There is no pneumothorax or pleural fluid. Diffuse interstitial infiltrates are unchanged compared to the prior study. IMPRESSION: Stable diffuse interstitial infiltrates. Life support lines as described above. No new finding otherwise seen. Dictated by: Dictated on workstation # [id number]
--- NOTE | 2020-11-02 10:19 | Tele-ICU Progress Note ---
Subjective Date Seen by a Provider: Nov 02, 2020 Time Seen by a Provider: 10:18 Sepsis Event Evaluation Height, Weight, BMI Height: '" Weight: lbs. oz. kg; 36.21 BMI Method: Exam Exam Patient acknowledged, consented, and participated in this virtual visit which was conducted using real time audio/video Vital Signs Date Time Temp Pulse Resp B/P (MAP) Pulse Ox O2 Delivery O2 Flow Rate FiO2 11/02/20 10:11 76 23 114/58 11/02/20 09:55 76 23 114/58 11/02/20 09:23 76 114/58 11/02/20 09:22 76 114/58 11/02/20 09:00 37.2 76 23 114/58 97 Mechanical Ventilator 80.00 11/02/20 08:00 95 Mechanical Ventilator 80 11/02/20 08:00 37.1 80 7 116/59 95 Mechanical Ventilator 80.00 11/02/20 07:13 74 22 92 80 11/02/20 07:00 37.1 74 17 112/64 92 Mechanical Ventilator 80.00 11/02/20 06:57 74 11/02/20 06:00 36.9 73 20 111/63 94 Mechanical Ventilator 80.00 11/02/20 05:00 36.8 75 22 113/64 94 Mechanical Ventilator 80.00 11/02/20 04:00 37.0 Mechanical Ventilator 80.00 11/02/20 04:00 36.7 81 23 119/67 93 Mechanical Ventilator 80.00 11/02/20 04:00 93 Mechanical Ventilator 80 11/02/20 03:36 Mechanical Ventilator 80.00 11/02/20 03:24 89 11/02/20 03:24 89 11/02/20 03:15 37.0 86 22 112/63 89 Mechanical Ventilator 60.00 11/02/20 02:20 75 22 94 60 11/02/20 02:00 36.9 75 18 105/58 94 Mechanical Ventilator 60.00 11/02/20 01:35 36.9 Mechanical Ventilator 60.00 11/02/20 01:00 72 11/02/20 01:00 36.6 72 22 106/58 92 Mechanical Ventilator 50.00 11/02/20 00:00 92 Mechanical Ventilator 50 11/02/20 00:00 36.3 71 26 109/59 95 Mechanical Ventilator 50.00 11/01/20 23:00 35.9 70 22 104/58 91 Mechanical Ventilator 50.00 11/01/20 23:00 36.4 Mechanical Ventilator 50.00 11/01/20 22:24 64 22 94 40 11/01/20 22:00 35.6 65 22 105/59 94 Mechanical Ventilator 40.00 11/01/20 21:13 68 11/01/20 21:12 68 11/01/20 21:00 35.4 78 17 110/83 91 Mechanical Ventilator 40.00 11/01/20 20:00 94 Mechanical Ventilator 40 11/01/20 20:00 35.5 63 22 107/60 96 Mechanical Ventilator 40.00 11/01/20 19:00 35.6 63 22 108/60 97 Mechanical Ventilator 40.00 11/01/20 19:00 63 11/01/20 19:00 35.5 Mechanical Ventilator 40.00 11/01/20 18:44 64 22 98 40 11/01/20 18:11 35.7 64 22 110/62 97 Mechanical Ventilator 60.00 11/01/20 17:58 70 109/76 11/01/20 17:00 36.1 70 22 109/76 97 Mechanical Ventilator 60.00 11/01/20 16:12 93 Mechanical Ventilator 45 11/01/20 15:44 36.3 84 22 117/60 96 Mechanical Ventilator 60.00 11/01/20 14:50 73 22 96 40 11/01/20 14:33 93 139/63 11/01/20 14:32 93 139/63 11/01/20 14:00 36.6 80 22 116/62 100 Mechanical Ventilator 60.00 11/01/20 13:00 85 11/01/20 13:00 36.8 86 22 123/62 92 Mechanical Ventilator 60.00 11/01/20 12:00 36.9 93 22 136/70 93 Mechanical Ventilator 60.00 11/01/20 11:59 93 Mechanical Ventilator 45 11/01/20 11:00 37.2 93 22 139/63 91 Mechanical Ventilator 60.00 I & O 11/02/20 07:00 Intake Total 3820 ml Output Total 2000 ml Balance 1820 ml Height & Weight Height: '" Weight: lbs. oz. kg; 36.21 BMI Method: General Appearance: No Apparent Distress, WD/WN, Chronically ill, Obese, Other (Sedated and intubated) Respiratory: Lungs Clear Cardiovascular: Regular Rate, Rhythm Capillary Refill: Less Than 3 Seconds Gastrointestinal: normal bowel sounds, non tender Extremity: Normal Capillary Refill Neurologic/Psychiatric: Alert, Other (anxious, fatigued) Skin: Normal Color, Warm/Dry Results Lab Laboratory Tests 11/01/20 04:15 11/02/20 03:30 Assessment/Plan Assessment/Plan (Tele-ICU Physician , Progress Note ) Available chart/ vitals / labs / Images reviewed Video assessment done using teleICU camera, rest of exam as per RN Discussed with RN , EXAM PER RN Events overnight : febrile I/O = EVEN Drips: LR 125 Pressors: , hemodynamically stable Sedation gtt: ( RASS - 3 ) propof ol 50 fent 175 , follows commands on sedatin vacation VENT SETTINGS and ABG reviewed Not candidate for SBT today Contraindications: Cardiovascular Stability / Sedation Score / FI02/PEEP / ABG / CXR Consultants: Hospital course: 10/30-transferred from OSH for change in mental status and low SpO2 in 70's, changed to vt rebeca oxygen, 40 lpm 80% 10/31 - INTUBATED - 45% fio2/rr22 peep22/tv 450 11/01 - TV 7 cc kg -= 460 11/02 - PC rr22 500 +8 15 - 24 A/P AHRF / ARDS due to severe COVID19 - PRONING 11/01 - PC rr22 500 +8 15 - 24 , met acidosis OMRW-Rmdvouyodgh-0/COVID-19 PNA ( Not vaccinated , Dx 10/25 ) -not given Remdesivir or Actemra -Steroids IV - started -Hypercoagulable state , DDIMER 1.5on 10/30 -> lovenox ppx dose , follow D dimer Suspected superimposed bact PNA -empiric abx Cefepime and Azithromycin 10/30 Cx sputum - GP Shock - levo OFF ED - improving , decrease IVF rate monitor for VO Thrombocytopenia associated with COVID-19 T2DM with ketoacidosis -now off insulin drip - levemir - ISS transaminitis likely due to COVID-19. hyperNA tremia - IVF and TF adjusted [id number] - try verse , wean off propofol Lines : Scl LEFT 10/30 (Central Line Necessity Reviewed) Weston: + OG: + Nutrition: start TF 11/01 - tolrating Analgesia: Anxiety/ delirium VTE Prophylaxis: aristides proph Stress Ulcer Prophylaxis: pepcid Glycemic Control: Plans in collaboration with bedside consultants and IM MDs. Discussed with RN to reach out if any questions or concerns A total of 40 minutes of critical care time was devoted to this patient today, required to treat and/or prevent further deterioration of critical care condition ( as above) . EMILIANO CARTER MD Nov 02, 2020 10:19
[2020-11-02 10:24] VITALS: BP 123/65
[2020-11-02] MEDS ORDERED: MIDAZOLAM DRIP PRE-MIX 100 ML IV SCH (10:30)
[2020-11-02] MEDS: ENOXAPARIN 40 MG/0.4 ML (LOVENOX) SYR SC SCH (11:28)
[2020-11-02 13:36] LABS: ABG BASE EXCESS -6.5 MMOL/L (-2.5-2.5); ABG OXYGEN SATURATION 89 % (94-100); ABG PCO2 48 MMHG (35-45); ABG PO2 58 MMHG (79-93); ABG TCO2 21.2 MMOL/L (21.0-31.0)
[2020-11-02 13:37] LABS: ALLENS TEST YES-POS; PATIENT TEMP 36.6; VENTILATOR YES
[2020-11-02 13:45] LABS: ABG PH 7.24 (7.37-7.43)
[2020-11-02 14:20] VITALS: BP 126/70
--- NOTE | 2020-11-02 15:09 | Progress Note - Hospitalist ---
TRINYELIZABETH DIANA Rakan 11/02/20 1509: Subjective HPI/CC On Admission Date Seen by Provider: Nov 02, 2020 Time Seen by Provider: 10:45 Diego Perry is a 70 year old male with PMH HTN, T2DM, HLD, obesity, who presented with shortness of breath. He reports feeling sick for weeks. He is very tired. He is wearing BiPAP. He would like to be put on the ventilator. 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 If his heart stops he would like us to let him pass away naturally without resuscitative efforts. I spoke with his daughter via telephone and updated her on his condition and plan. Subjective/Events-last exam Patient continues to be intubated and sedated Vent settings -RR 22 -FIO2 80 (up from 40-60) -Tidal Volume 50- (486-556) -Min vent 10.7 -PEEP 8 Objective Exam Vital Signs Vital Signs Date Time Temp Pulse Resp B/P (MAP) Pulse Ox O2 Delivery O2 Flow Rate FiO2 11/02/20 14:20 81 23 94 55 11/02/20 12:00 Mechanical Ventilator 11/02/20 12:00 126/64 80.00 11/02/20 09:00 37.2 Capillary Refill : Less Than 3 Seconds General Appearance: No Apparent Distress, Chronically ill, Obese Respiratory: Accessory Muscle Use Cardiovascular: Regular Rate, Rhythm Gastrointestinal: Normal Bowel Sounds Results/Procedures Lab Laboratory Tests 11/02/20 03:30 Patient resulted labs reviewed. Imaging: Reviewed Imaging Report Assessment/Plan Assessment and Plan Assess & Plan/Chief Complaint Diego Perry is a 70 yo M with a PMH of HTN, HLD, GERD who is currently in the ICU for COVID 19 pneumonia requiring intubation and sedation. Day 3 of intubation Plan: -Continue to monitor labs -Pt continues to require norepi -Monitor and adjust ventilator settings as needed. -Insulin Novolin and Determir (20 units) for increased management of hyperglycemia -Continue Cefepime and azithromycin -Continue enoxaparin, dexamethasone and nebulizers Critical Care: Critically Ill Patient ANNALILLIAM MURRAY 11/03/20 0519: Subjective Subjective/Events-last exam Pt about the same Total volume of 500 and PEEP of 8, 80% FIO2 Remains on pressors ABG is 7.27/43/73 Objective Exam General Appearance: No Apparent Distress, WD/WN, Chronically ill, Obese, Other (Intubated and sedated) Respiratory: Lungs Clear Cardiovascular: Regular Rate, Rhythm Assessment/Plan Assessment and Plan Assess & Plan/Chief Complaint Vent management appreciated Prognosis poor Supervisory-Addendum Brief Verification & Attestation Participated in pt care: history, MDM, physical Personally performed: exam, history, MDM, supervision of care Care discussed with: Medical Student Procedures: n/a Results interpretation: Verified all documentation Verification and Attestation of Medical Student E/M Service A medical student performed and documented this service in my presence. I reviewed and verified all information documented by the medical student and made modifications to such information, when appropriate. I personally performed the physical exam and medical decision making. Lilliam Castillo, Nov 03, 2020,05:18 ELIZABETH AGOSTO Nov 02, 2020 15:09 LILLIAM CASTILLO DO Nov 03, 2020 05:19
[2020-11-02 18:37] VITALS: BP 122/64
[2020-11-02 22:08] VITALS: BP 129/63
[2020-11-03] VITALS (7 sets, daily range): BP systolic 108–133; BP diastolic 61–76
[2020-11-03] MEDS: inSUlin ASPART (NovoLOG) 1 UNIT/0.01 ML (CHARGE PER UNIT) SC SCH ×4 (00:20→17:30)
[2020-11-03] MEDS: CEFEPIME INJECTION 1,000 MG in WATER (STERILE) FOR INJECTION 10 ML IV SCH ×4 (00:20→17:17)
[2020-11-03] MEDS: RT-ALBUTEROL/IPRATROPIUM 3 ML (DUONEB) VIAL INH SCH ×6 (02:20→22:00)
[2020-11-03 04:25] LABS: BASOPHILS % (AUTO) 0 % (0-10); EOSINOPHILS % (AUTO) 0 % (0-10); HEMATOCRIT 31 % (40-54); HEMOGLOBIN 9.4 g/dL (13.3-17.7); LYMPHOCYTES # (AUTO) 0.3 10^3/uL (1.0-4.0); LYMPHOCYTES % (AUTO) 6 % (12-44); MEAN CORPUSCULAR HEMOGLOBIN 31 pg (25-34); MEAN CORPUSCULAR HGB CONC 31 g/dL (32-36); MEAN CORPUSCULAR VOLUME 102 fL (80-99); MEAN PLATELET VOLUME 11.1 fL (9.0-12.2); MONOCYTES # (AUTO) 0.2 10^3/uL (0.0-1.0); MONOCYTES % (AUTO) 4 % (0-12); NEUTROPHILS # (AUTO) 3.8 10^3/uL (1.8-7.8); NEUTROPHILS % (AUTO) 88 % (42-75); PLATELET COUNT 148 10^3/uL (130-400); WHITE BLOOD COUNT 4.4 10^3/uL (4.3-11.0)
[2020-11-03 04:27] LABS: ABG BASE EXCESS -5.1 MMOL/L (-2.5-2.5); ABG OXYGEN SATURATION 95 % (94-100); ABG PCO2 48 MMHG (35-45); ABG PO2 72 MMHG (79-93); ABG TCO2 22.7 MMOL/L (21.0-31.0)
[2020-11-03 04:33] LABS: ALLENS TEST POSITIVE; INSPIRED O2 100; VENTILATOR YES
[2020-11-03 04:34] LABS: ABG PH 7.26 (7.37-7.43); PATIENT TEMP 35.8
[2020-11-03] MEDS: fentaNYL DRIP PRE-MIX 250 ML IV SCH ×3 (04:37→17:29)
[2020-11-03 04:41] LABS: ALBUMIN 2.6 GM/DL (3.2-4.5); POTASSIUM 4.6 MMOL/L (3.6-5.0)
[2020-11-03 04:42] LABS: CALCIUM 7.6 MG/DL (8.5-10.1)
[2020-11-03 04:43] LABS: TOTAL PROTEIN 5.1 GM/DL (6.4-8.2)
[2020-11-03 04:45] LABS: BILIRUBIN,TOTAL 0.4 MG/DL (0.1-1.0)
[2020-11-03 04:46] LABS: PHOSPHORUS 2.5 MG/DL (2.3-4.7)
[2020-11-03 04:47] LABS: CREATININE SERUM 0.85 MG/DL (0.60-1.30)
[2020-11-03 04:50] LABS: MAGNESIUM 2.9 MG/DL (1.6-2.4)
[2020-11-03 05:03] LABS: BAND NEUTROPHILS 3 %; LYMPHOCYTES % (MANUAL) 8 %; MONOCYTES % (MANUAL) 4 %; NEUTROPHILS % (MANUAL) 85 %; RBC MORPH NORMAL
[2020-11-03] MEDS: PROPOFOL DRIP (ICU) 100 ML IV SCH ×3 (05:25→17:30)
[2020-11-03] MEDS: inSUlin (REGULAR) HUMAN 1 UNIT/0.01 ML (CHARGE PER UNIT) SC SCH ×4 (05:27→20:59)
[2020-11-03] MEDS: LACTATED RINGERS 1,000 ML IV SCH ×2 (05:29→17:30)
[2020-11-03] MEDS: POTASSIUM CL 10MEQ/50ML IVPB 50 ML IV SCH (06:58)
[2020-11-03] MEDS: MAGNESIUM 1 GM/100 ML IVPB 100 ML IV SCH (06:58)
[2020-11-03] MEDS: KCL 20 MEQ TAB (K-DUR) PO SCH (06:59)
--- NOTE | 2020-11-03 07:08 | Diagnostic Imaging Report ---
EXAMINATION: Chest 1 view HISTORY: Line placement COMPARISON: 11/02/2020 FINDINGS: Heart size and pulmonary vasculature are stable. Low lung volumes with diffuse interstitial and airspace opacities seen throughout both lungs. Likely small bilateral pleural effusions. There is no pneumothorax. The osseous structures are intact. Endotracheal tube is present with the tip projecting 2.6 cm above the irvin. Left-sided subclavian central line is unchanged. Enteric catheter is seen coursing below the diaphragm. IMPRESSION: 1. Low lung volumes with diffuse interstitial and airspace opacities seen throughout both lungs, worse from 11/02/2020. 2. Medical support lines and tubes are unchanged. Dictated by: Dictated on workstation # [id number]
[2020-11-03] MEDS: NOREPINEPHRINE 8 MG/250 ML 250 ML IV SCH ×2 (08:06→20:58)
[2020-11-03] MEDS: PANTOPRAZOLE 40 MG (PROTONIX) VIAL IV SCH (08:25)
[2020-11-03] MEDS: AZITHROMYCIN INJECTION 250 MG in NS (IVPB) 250 ML IV SCH (08:25)
--- NOTE | 2020-11-03 09:39 | Progress Note - Hospitalist ---
ELIZABETH AGOSTO Rakan 11/03/20 0939: Subjective HPI/CC On Admission Date Seen by Provider: Nov 03, 2020 Time Seen by Provider: 10:50 Diego Perry is a 70 year old male with PMH HTN, T2DM, HLD, obesity, who presented with shortness of breath. He reports feeling sick for weeks. He is very tired. He is wearing BiPAP. He would like to be put on the ventilator. 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 If his heart stops he would like us to let him pass away naturally without resuscitative efforts. I spoke with his daughter via telephone and updated her on his condition and plan. Subjective/Events-last exam Patient continues to intubated and sedated. Norepinephrine is currently being held due to being normotensive. Current vent settings are the following - RR 26 - FIO2 90 - Tidal volume 485 - Min vent 11 - PEEP 8 Objective Exam Vital Signs Vital Signs Date Time Temp Pulse Resp B/P (MAP) Pulse Ox O2 Delivery O2 Flow Rate FiO2 11/03/20 12:00 97 Mechanical Ventilator 80 11/03/20 11:17 85 26 104/62 11/03/20 11:00 37.5 80.00 Capillary Refill : Less Than 3 Seconds General Appearance: No Apparent Distress, Chronically ill, Obese Respiratory: Crackles Cardiovascular: Regular Rate, Rhythm Gastrointestinal: Normal Bowel Sounds Results/Procedures Lab Laboratory Tests 11/03/20 04:00 Patient resulted labs reviewed. Imaging: Reviewed Imaging Report Assessment/Plan Assessment and Plan Assess & Plan/Chief Complaint Diego Perry is a 70 yo M with a PMH of HTN, HLD, GERD who is currently in the ICU for COVID 19 pneumonia requiring intubation and sedation. Day 4 of intubation Plan: -Continue to monitor labs -Monitor and adjust ventilator settings as needed. -Insulin Novolog, Novolin and Determir (20 units) for increased management of hyperglycemia -Continue Cefepime and azithromycin (Day 3) -Continue enoxaparin, dexamethasone and nebulizers Critical Care: Ventilator Management LILLIAM CASTILLO DO 11/04/20 0453: Subjective Subjective/Events-last exam Patient continues to be intubated Prone position helps Critical illness Prognosis poor given diabetes and comorbidities Objective Exam General Appearance: No Apparent Distress, WD/WN, Chronically ill, Obese, Other (Sedated and intubated) Respiratory: Lungs Clear, Normal Breath Sounds Cardiovascular: Regular Rate, Rhythm Assessment/Plan Assessment and Plan Assess & Plan/Chief Complaint Supportive care Prognosis poor Comorbidities noted Supervisory-Addendum Brief Verification & Attestation Participated in pt care: history, MDM, physical Personally performed: exam, history, MDM, supervision of care Care discussed with: Medical Student Procedures: n/a Results interpretation: Verified all documentation Verification and Attestation of Medical Student E/M Service A medical student performed and documented this service in my presence. I reviewed and verified all information documented by the medical student and made modifications to such information, when appropriate. I personally performed the physical exam and medical decision making. Lilliam Castillo, Nov 04, 2020,04:53 ELIZABETH AGOSTO Nov 03, 2020 09:39 LILLIAM CASTILLO DO Nov 04, 2020 04:53
--- NOTE | 2020-11-03 09:50 | Progress Note ---
TA[employer]ERS MED STUDENT 11/03/20 0949: Subjective Date Seen by a Provider: Nov 03, 2020 Time Seen by a Provider: 07:05 Subjective/Events-last exam Remains sedated and intubated. Vitals stable per bedside monitor. Review of Systems General: Other (unable to obtain) HEENT: Other (unable to obtain) Pulmonary: Other (unable to obtain) Cardiovascular: Other (unable to obtain) Gastrointestinal: Other (unable to obtain) Genitourinary: Other (unable to obtain) Musculoskeletal: other (unable to obtain) Neurological: Other (unable to obtain) Objective Exam Last Set of Vital Signs Vital Signs Date Time Temp Pulse Resp B/P (MAP) Pulse Ox O2 Delivery O2 Flow Rate FiO2 11/03/20 06:00 36.0 81 26 138/79 90 Mechanical Ventilator 55.00 11/03/20 05:58 90 Capillary Refill : Less Than 3 Seconds I&O Intake and Output 11/03/20 00:00 Intake Total 2020 ml Output Total 1975 ml Balance 45 ml Intake Oral 0 ml IV Total 1200 ml Tube Feeding 520 ml Other 300 ml Output Urine Total 1975 ml General: Other (Sedated/Intubated) HEENT: Atraumatic, Other (Pupils 2MM bilaterally reactive, brisk. Endotracheal tube/OGT in place. ) Neck: Supple, No LAD, Other Lungs: Other (Rhonchi throughout, bibasilar crackles present. ) Heart: Regular Rate, Normal S1, Normal S2 Abdomen: Normal Bowel Sounds, Soft Extremities: No Clubbing, No Cyanosis, No Edema, Normal Pulses Skin: No Rashes, No Significant Lesion Neuro: Other (sedated) Psych/Mental Status: Other (sedated) Results Lab Laboratory Tests 11/02/20 11:51: Glucometer 169H 11/02/20 13:20: Blood Gas Puncture Site RR, Blood Gas Patient Temperature 36.6, Arterial Blood pH 7.24*L, Arterial Blood Partial Pressure CO2 48H, Arterial Blood Partial Pressure O2 58L, Arterial Blood HCO3 20L, Arterial Blood Total CO2 21.2, Arterial Blood Oxygen Saturation 89L, Arterial Blood Base Excess -6.5L, Raji Test YES-POS, Blood Gas Ventilator Setting YES, Blood Gas Inspired Oxygen 55% 11/02/20 17:34: Glucometer 192H 11/02/20 23:41: Glucometer 219H 11/03/20 04:00: White Blood Count 4.4, Red Blood Count 3.03L, Hemoglobin 9.4L, Hematocrit 31L, Mean Corpuscular Volume 102H, Mean Corpuscular Hemoglobin 31, Mean Corpuscular Hemoglobin Concent 31L, Red Cell Distribution Width 14.7H, Platelet Count 148, Mean Platelet Volume 11.1, Immature Granulocyte % (Auto) 2, Neutrophils (%) (Auto) 88H, Lymphocytes (%) (Auto) 6L, Monocytes (%) (Auto) 4, Eosinophils (%) (Auto) 0, Basophils (%) (Auto) 0, Neutrophils # (Auto) 3.8, Lymphocytes # (Auto) 0.3L, Monocytes # (Auto) 0.2, Eosinophils # (Auto) 0.0, Basophils # (Auto) 0.0, Immature Granulocyte # (Auto) 0.1, Neutrophils % (Manual) 85, Lymphocytes % (Manual) 8, Monocytes % (Manual) 4, Band Neutrophils 3, Blood Morphology Comment NORMAL, Sodium Level 146H, Potassium Level 4.6, Chloride Level 121H, Carbon Dioxide Level 21, Anion Gap 4L, Blood Urea Nitrogen 27H, Creatinine 0.85, Estimat Glomerular Filtration Rate 89, BUN/Creatinine Ratio 32, Glucose Level 224H, Calcium Level 7.6L, Corrected Calcium 8.7, Phosphorus Level 2.5, Magnesium Level 2.9H, Total Bilirubin 0.4, Aspartate Amino Transf (AST/SGOT) 31, Alanine Aminotransferase (ALT/SGPT) 27, Alkaline Phosphatase 38L, Total Protein 5.1L, Albumin 2.6L, Triglycerides Level 192H 11/03/20 04:10: Blood Gas Puncture Site RIGHT RADIAL, Blood Gas Patient Temperature 35.8, Arterial Blood pH 7.26*L, Arterial Blood Partial Pressure CO2 48H, Arterial Blood Partial Pressure O2 72L, Arterial Blood HCO3 21L, Arterial Blood Total CO2 22.7, Arterial Blood Oxygen Saturation 95, Arterial Blood Base Excess -5.1L, Raji Test POSITIVE, Blood Gas Ventilator Setting YES, Blood Gas Inspired Oxygen 100 Microbiology 10/30/20 Gram Stain - Final, Complete 10/30/20 Sputum Culture - Final, Complete Usual upper respiratory [place] Strep constellatus Assessment/Plan Assessment/Plan Assess & Plan/Chief Complaint Acute respiratory failure secondary to COVID-19/ARDS -Continue ventilatory support -wean as tolerated -AC/VC FIO2 100%. PEEP 8. -low lung volumes with diffuse interstitial and airspace opacities seen throughout, worse from 9-8 cxray. COVID-19 PNA -decadron Suspected superimposed bacterial PNA -Cefepime and azithromycin Lymphopenia/Thrombocytopenia associated with COVID-19 -continue to monitor Transaminitis -resolved, continue to monitor Acute kidney injury -Resolved -creatinine 0.85 today -continue to monitor -continue IVF's Hypercoagulable state associated with COVID-19 -d dimer 1.50 on - -lovenox Hypertrglyceridemia -judicious use of propofol -continue to monitor T2DM with ketoacidosis -improved -continue to monitor glucoses -SSI PRN, levemir scheduled HTN HLD Obesity LILLIAM CASTILLO DO 11/04/20 0454: Subjective Subjective/Events-last exam Patient continues to be intubated Prone position helps Critical illness Prognosis poor given diabetes and comorbidities Objective Exam General: Other (Intubated and sedated) Lungs: Other (Rhonchi throughout, bibasilar crackles present. ) Heart: Regular Rate Assessment/Plan Assessment/Plan Assess & Plan/Chief Complaint Ventilator management appreciated Supportive care Supervisory-Addendum Brief Verification & Attestation Participated in pt care: history, MDM, physical Personally performed: exam, history, MDM, supervision of care Care discussed with: Medical Student Procedures: n/a Results interpretation: Verified all documentation Verification and Attestation of Medical Student E/M Service A medical student performed and documented this service in my presence. I reviewed and verified all information documented by the medical student and made modifications to such information, when appropriate. I personally performed the physical exam and medical decision making. Lilliam Castillo, Nov 04, 2020,04:54 [employer] MED STUDENT Nov 03, 2020 09:49 LILLIAM CASTILLO DO Nov 04, 2020 04:54
--- NOTE | 2020-11-03 09:56 | Tele-ICU Progress Note ---
Subjective Date Seen by a Provider: Nov 03, 2020 Time Seen by a Provider: 09:55 Sepsis Event Evaluation Height, Weight, BMI Height: '" Weight: lbs. oz. kg; 36.21 BMI Method: Exam Exam Patient acknowledged, consented, and participated in this virtual visit which was conducted using real time audio/video Vital Signs Date Time Temp Pulse Resp B/P (MAP) Pulse Ox O2 Delivery O2 Flow Rate FiO2 11/03/20 06:00 36.0 81 26 138/79 90 Mechanical Ventilator 55.00 11/03/20 05:58 81 28 93 90 11/03/20 05:25 73 129/63 11/03/20 05:25 73 129/63 11/03/20 05:00 35.9 68 26 112/68 98 Mechanical Ventilator 55.00 11/03/20 04:33 94 Mechanical Ventilator 55 11/03/20 04:00 35.7 70 26 116/68 93 Mechanical Ventilator 55.00 11/03/20 03:08 100 11/03/20 03:00 35.7 73 26 113/68 93 Mechanical Ventilator 55.00 11/03/20 02:20 73 25 96 40 11/03/20 02:00 35.6 72 26 121/60 97 Mechanical Ventilator 55.00 11/03/20 01:00 73 11/03/20 01:00 35.5 73 26 123/63 97 Mechanical Ventilator 55.00 11/03/20 00:00 35.4 76 20 126/62 97 Mechanical Ventilator 55.00 11/02/20 23:00 94 Mechanical Ventilator 55 11/02/20 23:00 35.5 76 17 130/63 97 Mechanical Ventilator 55.00 11/02/20 22:08 73 25 96 40 11/02/20 22:00 35.6 73 23 130/63 96 Mechanical Ventilator 55.00 11/02/20 21:00 35.6 73 23 128/62 96 Mechanical Ventilator 55.00 11/02/20 20:49 96 Mechanical Ventilator 40 11/02/20 20:08 74 126/63 11/02/20 20:07 74 126/63 11/02/20 20:00 35.7 73 26 127/61 96 Mechanical Ventilator 55.00 11/02/20 19:00 71 11/02/20 19:00 36.0 71 26 129/62 95 Mechanical Ventilator 55.00 11/02/20 18:37 71 26 94 40 11/02/20 18:00 36.1 73 26 124/63 99 Mechanical Ventilator 55.00 11/02/20 17:00 36.3 74 21 123/64 100 Mechanical Ventilator 55.00 11/02/20 16:00 36.4 78 26 131/64 99 Mechanical Ventilator 55.00 11/02/20 15:54 96 Mechanical Ventilator 55 11/02/20 15:30 36.5 79 26 131/66 99 Mechanical Ventilator 55.00 11/02/20 15:15 36.5 79 26 133/65 98 Mechanical Ventilator 55.00 11/02/20 15:00 36.5 80 26 131/65 97 Mechanical Ventilator 55.00 11/02/20 14:45 36.6 82 26 129/63 94 Mechanical Ventilator 55.00 11/02/20 14:30 36.6 81 26 127/63 93 Mechanical Ventilator 55.00 11/02/20 14:20 81 23 94 55 11/02/20 14:15 36.5 80 26 126/70 90 Mechanical Ventilator 55.00 11/02/20 14:00 36.6 81 22 131/66 91 Mechanical Ventilator 55.00 11/02/20 13:45 36.6 80 22 130/68 92 Mechanical Ventilator 55.00 11/02/20 13:30 36.6 79 26 126/66 91 Mechanical Ventilator 55.00 11/02/20 13:15 36.6 80 22 128/64 90 Mechanical Ventilator 55.00 11/02/20 13:00 36.6 80 23 129/65 93 Mechanical Ventilator 55.00 11/02/20 13:00 80 11/02/20 12:45 36.6 80 22 130/64 94 Mechanical Ventilator 55.00 11/02/20 12:30 36.6 81 24 128/71 92 Mechanical Ventilator 55.00 11/02/20 12:00 93 Mechanical Ventilator 55 11/02/20 12:00 82 5 126/64 93 Mechanical Ventilator 80.00 11/02/20 11:00 92 12 128/63 92 Mechanical Ventilator 80.00 11/02/20 10:24 93 24 95 70 11/02/20 10:11 76 23 114/58 11/02/20 10:00 86 21 127/62 96 Mechanical Ventilator 80.00 I & O 11/03/20 07:00 Intake Total 815 ml Output Total 1800 ml Balance -985 ml Height & Weight Height: '" Weight: lbs. oz. kg; 36.21 BMI Method: General Appearance: No Apparent Distress, Chronically ill, Obese Respiratory: Crackles Cardiovascular: Regular Rate, Rhythm Capillary Refill: Less Than 3 Seconds Gastrointestinal: normal bowel sounds, non tender Extremity: Normal Capillary Refill Neurologic/Psychiatric: Alert, Other (anxious, fatigued) Skin: Normal Color, Warm/Dry Results Lab Laboratory Tests 11/02/20 03:30 11/03/20 04:00 Assessment/Plan Assessment/Plan (Tele-ICU Physician , Progress Note ) Available chart/ vitals / labs / Images reviewed Video assessment done using teleICU camera, rest of exam as per RN Discussed with RN , EXAM PER RN Events overnight : afebrile I/O = EVEN Drips: LR Pressors: , hemodynamically stable Sedation gtt: ( RASS - 3 ) propofol 20 fent 175 , verced 3 follows commands on sedatin vacation VENT SETTINGS and ABG reviewed Not candidate for SBT today Contraindications: Cardiovascular Stability / Sedation Score / FI02/PEEP / ABG / CXR Consultants: Hospital course: 10/30-transferred from OSH for change in mental status and low SpO2 in 70's, changed to hi rebeca oxygen, 40 lpm 80% 10/31 - INTUBATED - 45% fio2/rr22 peep22/tv 450 11/01 - TV 7 cc kg -= 460 11/02 - PC rr22 500 +8 15 - 24 11/03 -proned 40 % - TF was coming out upon turned to supine - Fio2 increased - ? aspiration A/P AHRF / ARDS due to severe COVID19 - PRONING 11/01 - PC rr22 500 +8 15 - 24 80 % with met acidosis - will tryy AC today - proned 40 % - TF was coming out upon turned to supine - Fio2 increased - ? aspiration - follow , Hold TF in prone position , cont TF supine [id number]-9/COVID-19 PNA ( Not vaccinated , Dx 10/25 ) -not given Remdesivir or Actemra -Steroids IV - started -Hypercoagulable state , DDIMER 1.5on 10/30 -> lovenox ppx dose , follow D dimer Suspected superimposed bact PNA -empiric abx Cefepime and Azithromycin 10/30 Cx sputum - GP Shock - levo OFF 11/01 ED - improving , decrease IVF rate monitor for VO Thrombocytopenia associated with COVID-19 - normalized T2DM with ketoacidosis -now off insulin drip - levemir - ISS transaminitis likely due to COVID-19. hyperNA tremia - IVF and TF adjusted [id number] - try versed , wean off propofol - 192 on 11/03 Anemia - follow Lines : Scl LEFT 10/30 (Central Line Necessity Reviewed) [place]: + OG: + Nutrition: start TF 11/01 --Hold TF in prone position , cont TF supine Analgesia: Anxiety/ delirium VTE Prophylaxis: aristides proph Stress Ulcer Prophylaxis: pepcid Glycemic Control: Plans in collaboration with bedside consultants and IM MDs. Discussed with RN to reach out if any questions or concerns A total of 40 minutes of critical care time was devoted to this patient today, required to treat and/or prevent further deterioration of critical care condition ( as above) . EMILIANO CARTER MD Nov 03, 2020 09:55
[2020-11-03] MEDS: MIDAZOLAM DRIP PRE-MIX 100 ML IV SCH (11:17)
[2020-11-03 11:32] LABS: ABG BASE EXCESS -5.1 MMOL/L (-2.5-2.5); ABG OXYGEN SATURATION 99 % (94-100); ABG PCO2 57 MMHG (35-45); ABG PO2 138 MMHG (79-93); ABG TCO2 23.2 MMOL/L (21.0-31.0)
[2020-11-03 11:36] LABS: ABG PH 7.21 (7.37-7.43); ALLENS TEST POSITIVE; INSPIRED O2 85%; PATIENT TEMP 37.6; VENTILATOR YES
[2020-11-03] MEDS: ENOXAPARIN 40 MG/0.4 ML (LOVENOX) SYR SC SCH (17:16)
[2020-11-04] MEDS: inSUlin ASPART (NovoLOG) 1 UNIT/0.01 ML (CHARGE PER UNIT) SC SCH ×4 (00:18→17:18)
[2020-11-04] MEDS: CEFEPIME INJECTION 1,000 MG in WATER (STERILE) FOR INJECTION 10 ML IV SCH ×4 (00:50→17:18)
[2020-11-04] MEDS: fentaNYL DRIP PRE-MIX 250 ML IV SCH ×4 (01:38→20:29)
[2020-11-04 02:27] VITALS: BP 147/72
[2020-11-04] MEDS: RT-ALBUTEROL/IPRATROPIUM 3 ML (DUONEB) VIAL INH SCH ×6 (02:27→21:27)
[2020-11-04] MEDS: PROPOFOL DRIP (ICU) 100 ML IV SCH ×4 (03:13→20:28)
[2020-11-04 04:23] LABS: ABG BASE EXCESS -3.4 MMOL/L (-2.5-2.5); ABG OXYGEN SATURATION 96 % (94-100); ABG PCO2 52 MMHG (35-45); ABG PO2 78 MMHG (79-93); ABG TCO2 24.5 MMOL/L (21.0-31.0)
[2020-11-04 04:24] LABS: ALLENS TEST YES-POS
[2020-11-04 04:25] LABS: INSPIRED O2 100%; PATIENT TEMP 36; VENTILATOR YES
[2020-11-04 04:26] LABS: ABG PH 7.26 (7.37-7.43); EOSINOPHILS % (AUTO) 0 % (0-10)
[2020-11-04 04:27] LABS: BASOPHILS % (AUTO) 0 % (0-10); HEMATOCRIT 31 % (40-54); HEMOGLOBIN 9.4 g/dL (13.3-17.7); LYMPHOCYTES # (AUTO) 0.2 10^3/uL (1.0-4.0); LYMPHOCYTES % (AUTO) 5 % (12-44); MEAN CORPUSCULAR HEMOGLOBIN 32 pg (25-34); MEAN CORPUSCULAR HGB CONC 31 g/dL (32-36); MEAN CORPUSCULAR VOLUME 103 fL (80-99); MONOCYTES # (AUTO) 0.1 10^3/uL (0.0-1.0); MONOCYTES % (AUTO) 4 % (0-12); NEUTROPHILS # (AUTO) 3.2 10^3/uL (1.8-7.8); NEUTROPHILS % (AUTO) 85 % (42-75); PLATELET COUNT 142 10^3/uL (130-400); WHITE BLOOD COUNT 3.7 10^3/uL (4.3-11.0)
[2020-11-04 04:36] LABS: ALBUMIN 2.6 GM/DL (3.2-4.5); POTASSIUM 5.9 MMOL/L (3.6-5.0)
[2020-11-04 04:37] LABS: CALCIUM 8.1 MG/DL (8.5-10.1)
[2020-11-04 04:38] LABS: TOTAL PROTEIN 5.3 GM/DL (6.4-8.2)
[2020-11-04 04:40] LABS: BILIRUBIN,TOTAL 0.4 MG/DL (0.1-1.0)
[2020-11-04 04:42] LABS: CREATININE SERUM 0.84 MG/DL (0.60-1.30)
[2020-11-04 04:45] LABS: MAGNESIUM 2.9 MG/DL (1.6-2.4)
[2020-11-04] MEDS: LACTATED RINGERS 1,000 ML IV SCH ×2 (06:14→20:28)
[2020-11-04] MEDS: MAGNESIUM 1 GM/100 ML IVPB 100 ML IV SCH (06:14)
[2020-11-04] MEDS: KCL 20 MEQ TAB (K-DUR) PO SCH (06:14)
[2020-11-04] MEDS: POTASSIUM CL 10MEQ/50ML IVPB 50 ML IV SCH (06:14)
[2020-11-04] MEDS: inSUlin (REGULAR) HUMAN 1 UNIT/0.01 ML (CHARGE PER UNIT) SC SCH ×2 (06:16→13:01)
[2020-11-04 07:14] VITALS: BP 133/71
--- NOTE | 2020-11-04 07:29 | Diagnostic Imaging Report ---
INDICATION: Pneumonia AP view of the chest obtained with comparison made to study one day earlier. Endotracheal tube is in place with tip the level of the thoracic inlet. Nasogastric tube passes below the diaphragm. Diffuse bilateral airspace disease is again noted without evidence of pneumothorax. No definite pleural fluid is seen. IMPRESSION: Diffuse bilateral airspace disease is stable or slightly improved without other change detected. Dictated by: Dictated on workstation # [id number]
[2020-11-04] MEDS: NOREPINEPHRINE 8 MG/250 ML 250 ML IV SCH ×2 (08:22→19:54)
[2020-11-04] MEDS: AZITHROMYCIN INJECTION 250 MG in NS (IVPB) 250 ML IV SCH (08:23)
[2020-11-04] MEDS: PANTOPRAZOLE 40 MG (PROTONIX) VIAL IV SCH (08:23)
--- NOTE | 2020-11-04 09:25 | Tele-ICU Progress Note ---
Subjective Date Seen by a Provider: Nov 04, 2020 Time Seen by a Provider: 09:24 Subjective/Events-last exam Patient remained intubated and on 100% FiO2 with a respiratory rate of 426 and a PEEP of 10. He does have mild respiratory acidosis. Apparently patient not tolerating the NG feeds. Blood pressure stable however his urine output is decreased hence I have ordered a normal saline bolus. His potassium is high at 5.9 which has been addressed with the various IV medications. Discussed with the MANUFACTURING CONTROLLER and video visit made. Review of Systems ROS PER ATTENDING PHYSICIAN Sepsis Event Evaluation Height, Weight, BMI Height: '" Weight: lbs. oz. kg; 36.21 BMI Method: Exam Exam Patient acknowledged, consented, and participated in this virtual visit which was conducted using real time audio/video Vital Signs Date Time Temp Pulse Resp B/P (MAP) Pulse Ox O2 Delivery O2 Flow Rate FiO2 11/04/20 09:00 36.3 69 11 123/71 96 Mechanical Ventilator 100.00 11/04/20 08:19 94 100 11/04/20 08:00 36.3 69 134/76 91 Mechanical Ventilator 100.00 11/04/20 07:14 67 31 95 100 11/04/20 07:00 36.1 67 129/73 93 Mechanical Ventilator 100.00 11/04/20 06:24 67 11/04/20 06:00 36.0 64 22 135/74 92 Mechanical Ventilator 100.00 11/04/20 05:00 35.9 67 17 139/77 94 Mechanical Ventilator 100.00 11/04/20 04:00 92 100 11/04/20 04:00 35.9 74 26 135/76 95 Mechanical Ventilator 100.00 11/04/20 03:33 100 11/04/20 03:15 Mechanical Ventilator 100.00 11/04/20 03:13 75 11/04/20 03:00 36.2 74 26 154/72 96 Mechanical Ventilator 40.00 11/04/20 02:27 74 26 95 40 11/04/20 02:00 36.1 74 26 147/72 95 Mechanical Ventilator 40.00 11/04/20 01:00 72 11/04/20 01:00 36.2 72 26 147/73 96 Mechanical Ventilator 40.00 11/04/20 00:00 96 Mechanical Ventilator 40 11/04/20 00:00 Mechanical Ventilator 40.00 11/04/20 00:00 36.3 71 26 141/72 96 Mechanical Ventilator 40.00 11/03/20 23:00 36.4 72 26 135/67 96 Mechanical Ventilator 45.00 11/03/20 22:00 36.5 70 26 127/67 96 Mechanical Ventilator 45.00 11/03/20 22:00 70 26 97 40 11/03/20 21:00 36.6 70 26 128/67 98 Mechanical Ventilator 45.00 11/03/20 21:00 Mechanical Ventilator 45.00 11/03/20 20:00 36.8 73 26 125/67 100 Mechanical Ventilator 50.00 11/03/20 20:00 100 Mechanical Ventilator 50 11/03/20 19:00 36.8 75 26 126/66 100 Mechanical Ventilator 50.00 11/03/20 19:00 Mechanical Ventilator 50.00 11/03/20 19:00 75 11/03/20 18:33 75 26 100 50 11/03/20 18:00 36.9 74 26 126/66 100 Mechanical Ventilator 80.00 11/03/20 17:30 77 124/66 11/03/20 17:00 37.1 77 26 124/66 100 Mechanical Ventilator 80.00 11/03/20 16:15 98 Mechanical Ventilator 55 11/03/20 16:00 37.2 82 26 124/65 96 Mechanical Ventilator 80.00 11/03/20 15:02 79 26 100 55 11/03/20 15:00 37.2 79 26 124/64 100 Mechanical Ventilator 80.00 11/03/20 14:00 37.4 80 26 124/67 100 Mechanical Ventilator 80.00 11/03/20 13:00 37.6 82 26 124/68 100 Mechanical Ventilator 80.00 11/03/20 12:37 82 11/03/20 12:00 97 Mechanical Ventilator 80 11/03/20 12:00 37.6 84 26 123/68 100 Mechanical Ventilator 80.00 11/03/20 11:17 85 26 104/62 11/03/20 11:17 85 104/62 11/03/20 11:00 37.5 85 26 104/62 100 Mechanical Ventilator 80.00 11/03/20 10:21 88 26 100 85 11/03/20 10:13 90 26 100 85 11/03/20 10:00 37.5 96 34 106/65 93 Mechanical Ventilator 80.00 I & O 11/04/20 07:00 Intake Total 1790 ml Output Total 1950 ml Balance -160 ml Height & Weight Height: '" Weight: lbs. oz. kg; 36.21 BMI Method: General Appearance: No Apparent Distress, WD/WN, Chronically ill, Obese, Other (Sedated and intubated) Respiratory: Lungs Clear, Normal Breath Sounds Cardiovascular: Regular Rate, Rhythm Capillary Refill: Less Than 3 Seconds Gastrointestinal: normal bowel sounds, non tender Extremity: Normal Capillary Refill Neurologic/Psychiatric: Alert, Other (anxious, fatigued) Skin: Normal Color, Warm/Dry Other comments PE PER ATTENDING PHYSICIAN Results Lab Laboratory Tests 11/03/20 04:00 11/04/20 04:00 Meds reviewed Radiology cxr reviewed Assessment/Plan Assessment/Plan 1. Acute Covid19 pneumonia with ARDS. 2. Acute hypoxic respiratory failure currently intubated and on vent 3. Hyperglycemia probably secondary to steroids 4. High risk for DVT. 5. hyperkalemia Recommendations 1. continue current vent settings and wean fio2 first and the slowly wean peep 2. iv dextrose,and insulin, calcium gluconate and nahco3 ordered for hyperkalis 3. DVT prophylaxis 4. Ulcer prophylaxis. 5. star iv reglan. 5. repeat bmp this afternoon. Critical Care: Ventilator Management Time spent with patient (mins): 35 HARRIS LEES MD Nov 04, 2020 09:25
[2020-11-04] MEDS ORDERED: SOD POLYSTERENE 15 GM/60 ML (KAYEXALATE) UNIT DOSE NG ONE (09:30)
[2020-11-04] MEDS ORDERED: DEXTROSE 50% 50 ML (IMS) SYR IV ONE ×2 (09:30→22:00)
[2020-11-04] MEDS ORDERED: CALCIUM GLUC. 10% 4.65 MEQ/10 ML VIAL IV ONE (09:30)
[2020-11-04] MEDS ORDERED: NS IV 500 ML 500 ML IV ONE (10:00)
[2020-11-04 10:08] VITALS: BP 129/72
[2020-11-04] MEDS ORDERED: NS IV 500 ML 500 ML ONE (10:14)
[2020-11-04] MEDS: MIDAZOLAM DRIP PRE-MIX 100 ML IV SCH (10:16)
--- NOTE | 2020-11-04 13:01 | Progress Note ---
TA[employer] MED STUDENT 11/04/20 1301: Subjective Date Seen by a Provider: Nov 04, 2020 Time Seen by a Provider: 07:10 Subjective/Events-last exam Remains sedated and intubated. Vitals stable per monitor. PEEP 10. FIO2 100%. TV 460. RR 26. Remains on propofol, fentanyl, and versed gtts. Review of Systems General: Other (unobtainable) HEENT: Other (unobtainable) Pulmonary: Other (unobtainable) Cardiovascular: Other (unobtainable) Gastrointestinal: Other (unobtainable) Genitourinary: Other (unobtainable) Musculoskeletal: other (unobtainable) Neurological: Other (unobtainable) Objective Exam Last Set of Vital Signs Vital Signs Date Time Temp Pulse Resp B/P (MAP) Pulse Ox O2 Delivery O2 Flow Rate FiO2 11/04/20 12:00 36.3 69 27 125/73 94 Mechanical Ventilator 90.00 11/04/20 11:46 95 Capillary Refill : Less Than 3 Seconds I&O Intake and Output 11/04/20 00:00 Intake Total 385 ml Output Total 1700 ml Balance -1315 ml Intake Oral 0 ml Tube Feeding 235 ml Other 150 ml Output Urine Total 1700 ml General: Other (Sedated. Intubated. Critically ill appearing. ) HEENT: Atraumatic, Other (Endotracheal tube in place. OGT in place. ) Neck: Supple, No LAD, Other (Left subclavian CVC intact. ) Lungs: Other (Coarse throughout. No wheezing or crackles. ) Heart: Regular Rate, No Murmurs, Other (Bilateral nonpitting edema BLE and bilateral hands. Cap refill <2seconds bilaterally. Radial pulses +2/4 bilat. ) Abdomen: Normal Bowel Sounds, Soft Extremities: No Clubbing, No Cyanosis, Normal Pulses Skin: No Significant Lesion, Other (Warm, pink, and dry. ) Neuro: Other (sedated) Psych/Mental Status: Other (sedated) Other physical findings [place] present Results Lab Laboratory Tests 11/03/20 17:15: Glucometer 155H 11/04/20 00:01: Glucometer 143H 11/04/20 04:00: White Blood Count 3.7L, Red Blood Count 2.97L, Hemoglobin 9.4L, Hematocrit 31L, Mean Corpuscular Volume 103H, Mean Corpuscular Hemoglobin 32, Mean Corpuscular Hemoglobin Concent 31L, Red Cell Distribution Width 14.7H, Platelet Count 142, Mean Platelet Volume 11.0, Immature Granulocyte % (Auto) 6, Neutrophils (%) (Auto) 85H, Lymphocytes (%) (Auto) 5L, Monocytes (%) (Auto) 4, Eosinophils (%) (Auto) 0, Basophils (%) (Auto) 0, Neutrophils # (Auto) 3.2, Lymphocytes # (Auto) 0.2L, Monocytes # (Auto) 0.1, Eosinophils # (Auto) 0.0, Basophils # (Auto) 0.0, Immature Granulocyte # (Auto) 0.2H, Percent Immature Platelet Fraction 5.5, Blood Gas Puncture Site RIGHT RADIAL, Blood Gas Patient Temperature 36, Arterial Blood pH 7.26*L, Arterial Blood Partial Pressure CO2 52H, Arterial Blood Partial Pressure O2 78L, Arterial Blood HCO3 23, Arterial Blood Total CO2 24.5, Arterial Blood Oxygen Saturation 96, Arterial Blood Base Excess -3.4L, Raji Test YES-POS, Blood Gas Ventilator Setting YES, Blood Gas Inspired Oxygen 100%, Sodium Level 146H, Potassium Level 5.9H, Chloride Level 119H, Carbon Dioxide Level 21, Anion Gap 6, Blood Urea Nitrogen 35H, Creatinine 0.84, Estimat Glomerular Filtration Rate 91, BUN/Creatinine Ratio 42, Glucose Level 193H, Calcium Level 8.1L, Corrected Calcium 9.2, Phosphorus Level 3.0, Magnesium Level 2.9H, Total Bilirubin 0.4, Aspartate Amino Transf (AST/SGOT) 29, Alanine Aminotransferase (ALT/SGPT) 26, Alkaline Phosphatase 39L, Total Protein 5.3L, Albumin 2.6L 11/04/20 11:31: Glucometer 215H Microbiology 10/30/20 Gram Stain - Final, Complete 10/30/20 Sputum Culture - Final, Complete Usual upper respiratory [place] Strep constellatus Assessment/Plan Assessment/Plan Assess & Plan/Chief Complaint Acute respiratory failure secondary to COVID-19/ARDS -Continue ventilatory support -wean as tolerated -AC/VC TV 460 FIO2 100%. PEEP 10. RR 26 COVID-19 PNA -diffuse bilateral airspace disease stable vs slightly improved from yesterday -decadron Hyperkalemia -k 5.9 this am -s/p 1 amp D50, calcium gluconate, and kayexalate per e-icu physician Suspected superimposed bacterial PNA -Cefepime and azithromycin Lymphopenia/Thrombocytopenia associated with COVID-19 -continue to monitor, stable Transaminitis -resolved, continue to monitor Acute kidney injury -Resolved -creatinine 0.84 today -continue to monitor -continue IVF's Hypercoagulable state associated with COVID-19 -d dimer 1.50 on 10-30 -lovenox Hypertrglyceridemia -judicious use of propofol -continue to monitor T2DM with ketoacidosis -resolved -continue to monitor glucoses -SSI q6hr accuchecks, levemir scheduled -dc achs SSI today HTN HLD Obesity LILLIAM CASTILLO DO 11/05/20 0549: Subjective Subjective/Events-last exam Patient remains intubated Prone position is helpful Diabetes trend reviewed Objective Exam General: Other (Sedated and intubated) Lungs: Other (Coarse breath sounds) Heart: Regular Rate Assessment/Plan Assessment/Plan Assess & Plan/Chief Complaint Maintain insulin Supportive care Prognosis poor Supervisory-Addendum Brief Verification & Attestation Participated in pt care: history, MDM, physical Personally performed: exam, history, MDM, supervision of care Care discussed with: Medical Student Procedures: n/a Results interpretation: Verified all documentation Verification and Attestation of Medical Student E/M Service A medical student performed and documented this service in my presence. I reviewed and verified all information documented by the medical student and made modifications to such information, when appropriate. I personally performed the physical exam and medical decision making. Lilliam Castillo, Nov 05, 2020,05:48 TA[employer]ERS MED STUDENT Nov 04, 2020 13:01 LILLIAM CASTILLO DO Nov 05, 2020 05:49
--- NOTE | 2020-11-04 13:28 | Progress Note - Hospitalist ---
ELIZABETH AGOSTO 11/04/20 1328: Subjective HPI/CC On Admission Date Seen by Provider: Nov 04, 2020 Time Seen by Provider: 11:20 Diego Perry is a 70 year old male with PMH HTN, T2DM, HLD, obesity, who presented with shortness of breath. He reports feeling sick for weeks. He is very tired. He is wearing BiPAP. He would like to be put on the ventilator. He does not want to be on it senior care. He feels exhausted. If his heart stops he would like us to let him pass away naturally without resuscitative efforts. I spoke with his daughter via telephone and updated her on his condition and plan. Subjective/Events-last exam Pt continues to remain intubated and sedated. Patient's potassium elevated to 5. 9, Current vent settings are the following -TV 511 -RR31 -FIO2 100 -PEEP 10 Objective Exam Vital Signs Vital Signs Date Time Temp Pulse Resp B/P (MAP) Pulse Ox O2 Delivery O2 Flow Rate FiO2 11/04/20 14:02 70 27 99 90 11/04/20 13:00 36.3 130/69 Mechanical Ventilator 90.00 Capillary Refill : Less Than 3 Seconds General Appearance: No Apparent Distress, Chronically ill, Obese Respiratory: Crackles Cardiovascular: Regular Rate, Rhythm, Normal Peripheral Pulses Gastrointestinal: Normal Bowel Sounds Results/Procedures Lab Laboratory Tests 11/04/20 04:00 11/04/20 13:32 Patient resulted labs reviewed. Imaging: Reviewed Imaging Report Assessment/Plan Assessment and Plan Assess & Plan/Chief Complaint Diego Perry is a 70 yo M with a PMH of HTN, HLD, GERD who is currently in the ICU for COVID 19 pneumonia requiring intubation and sedation. Day 5 of intubation Plan: -NS, Sodium bicarb, insulin, kayexalate, calcium gluc administered for hyperkalemia -Continue to monitor labs -Monitor and adjust ventilator settings as needed. -Insulin Novolog, Novolin and Determir (20 units) for increased management of hyperglycemia -Continue Cefepime and azithromycin (Day 4) -Continue enoxaparin, dexamethasone and nebulizers Critical Care: Ventilator Management LILLIAM CASTILLO DO 11/05/20 0549: Subjective Subjective/Events-last exam Patient remains intubated Prone position is helpful Diabetes trend reviewed Objective Exam General Appearance: No Apparent Distress, Other (Sedated and intubated) Respiratory: Crackles Cardiovascular: Regular Rate, Rhythm Assessment/Plan Assessment and Plan Assess & Plan/Chief Complaint Prognosis poor Critically ill Aggressive treatment to continue Supervisory-Addendum Brief Verification & Attestation Participated in pt care: history, MDM, physical Personally performed: exam, history, MDM, supervision of care Care discussed with: Medical Student Procedures: n/a Results interpretation: Verified all documentation Verification and Attestation of Medical Student E/M Service A medical student performed and documented this service in my presence. I reviewed and verified all information documented by the medical student and made modifications to such information, when appropriate. I personally performed the physical exam and medical decision making. Lilliam Castillo, Nov 05, 2020,05:49 ELIZABETH AGOSTO Nov 04, 2020 13:28 LILLIAM CASTILLO DO Nov 05, 2020 05:49
[2020-11-04 13:56] LABS: CALCIUM 8.3 MG/DL (8.5-10.1); CREATININE SERUM 0.81 MG/DL (0.60-1.30); POTASSIUM 5.9 MMOL/L (3.6-5.0)
[2020-11-04 14:02] VITALS: BP 130/71
[2020-11-04] MEDS ORDERED: CALCIUM GLUC. 10% 4.65 MEQ/10 ML VIAL IV NR (16:45)
[2020-11-04] MEDS ORDERED: SODIUM BICARB 8.4% 50 MEQ/50 ML VIAL IV NR (16:45)
[2020-11-04] MEDS ORDERED: SOD POLYSTERENE 15 GM/60 ML (KAYEXALATE) UNIT DOSE NG NR (16:45)
[2020-11-04] MEDS: METOCLOPRAMIDE INJ 10 MG/2 ML (REGLAN) IVP SCH (17:19)
[2020-11-04] MEDS: ENOXAPARIN 40 MG/0.4 ML (LOVENOX) SYR SC SCH (17:19)
[2020-11-04] MEDS ORDERED: DEXTROSE 50% 50 ML (IMS) SYR ONE (18:11)
[2020-11-04] MEDS ORDERED: inSUlin (REGULAR) HUMAN 1 UNIT/0.01 ML (CHARGE PER UNIT) ONE (18:11)
[2020-11-04] MEDS ORDERED: DEXTROSE 50% 50 ML (IMS) SYR IV NR (18:15)
[2020-11-04] MEDS ORDERED: inSUlin (REGULAR) HUMAN 1 UNIT/0.01 ML (CHARGE PER UNIT) SC NR (18:15)
[2020-11-04] MEDS ORDERED: inSUlin (REGULAR) HUMAN 1 UNIT/0.01 ML (CHARGE PER UNIT) IV NR ×2 (18:15→18:30)
[2020-11-04 19:11] VITALS: BP 125/67
[2020-11-04 21:22] LABS: CALCIUM 8.6 MG/DL (8.5-10.1); CREATININE SERUM 0.84 MG/DL (0.60-1.30); POTASSIUM 6.2 MMOL/L (3.6-5.0)
[2020-11-04 21:28] VITALS: BP 121/64
--- NOTE | 2020-11-04 21:58 | Tele-ICU Progress Note ---
Subjective Date Seen by a Provider: Nov 04, 2020 Time Seen by a Provider: 21:57 Sepsis Event Evaluation Height, Weight, BMI Height: '" Weight: lbs. oz. kg; 36.21 BMI Method: Exam Exam Patient acknowledged, consented, and participated in this virtual visit which was conducted using real time audio/video Vital Signs Date Time Temp Pulse Resp B/P (MAP) Pulse Ox O2 Delivery O2 Flow Rate FiO2 11/04/20 21:46 Mechanical Ventilator 65.00 11/04/20 21:28 75 26 92 75 11/04/20 20:28 76 11/04/20 20:00 91 75 11/04/20 19:11 78 26 94 75 11/04/20 19:00 36.3 Mechanical Ventilator 75.00 11/04/20 18:00 36.5 74 26 128/68 95 Mechanical Ventilator 75.00 11/04/20 17:00 36.5 74 23 127/69 94 Mechanical Ventilator 75.00 11/04/20 16:00 36.4 73 21 128/69 95 Mechanical Ventilator 75.00 11/04/20 16:00 92 75 11/04/20 15:01 Mechanical Ventilator 75.00 11/04/20 15:00 36.5 71 24 134/73 96 Mechanical Ventilator 80.00 11/04/20 15:00 70 128/71 11/04/20 14:21 Mechanical Ventilator 80.00 11/04/20 14:02 70 27 99 90 11/04/20 14:00 36.4 70 26 130/71 99 Mechanical Ventilator 90.00 11/04/20 13:00 36.3 70 27 130/69 Mechanical Ventilator 90.00 11/04/20 12:43 69 11/04/20 12:00 36.3 69 27 125/73 94 Mechanical Ventilator 90.00 11/04/20 11:46 Mechanical Ventilator 90.00 11/04/20 11:46 100 95 11/04/20 11:00 36.4 67 13 135/68 98 Mechanical Ventilator 95.00 11/04/20 10:49 Mechanical Ventilator 95.00 11/04/20 10:16 66 26 134/68 11/04/20 10:15 67 134/68 11/04/20 10:08 67 26 97 100 11/04/20 10:00 36.3 67 13 129/72 97 Mechanical Ventilator 100.00 11/04/20 09:00 36.3 69 11 123/71 96 Mechanical Ventilator 100.00 11/04/20 08:19 94 100 11/04/20 08:00 36.3 69 134/76 91 Mechanical Ventilator 100.00 11/04/20 07:14 67 31 95 100 11/04/20 07:00 36.1 67 129/73 93 Mechanical Ventilator 100.00 11/04/20 06:24 67 11/04/20 06:00 36.0 64 22 135/74 92 Mechanical Ventilator 100.00 11/04/20 05:00 35.9 67 17 139/77 94 Mechanical Ventilator 100.00 11/04/20 04:00 92 100 11/04/20 04:00 35.9 74 26 135/76 95 Mechanical Ventilator 100.00 11/04/20 03:33 100 11/04/20 03:15 Mechanical Ventilator 100.00 11/04/20 03:13 75 11/04/20 03:00 36.2 74 26 154/72 96 Mechanical Ventilator 40.00 11/04/20 02:27 74 26 95 40 11/04/20 02:00 36.1 74 26 147/72 95 Mechanical Ventilator 40.00 11/04/20 01:00 72 11/04/20 01:00 36.2 72 26 147/73 96 Mechanical Ventilator 40.00 11/04/20 00:00 96 Mechanical Ventilator 40 11/04/20 00:00 Mechanical Ventilator 40.00 11/04/20 00:00 36.3 71 26 141/72 96 Mechanical Ventilator 40.00 11/03/20 23:00 36.4 72 26 135/67 96 Mechanical Ventilator 45.00 11/03/20 22:00 36.5 70 26 127/67 96 Mechanical Ventilator 45.00 11/03/20 22:00 70 26 97 40 I & O 11/04/20 07:00 Intake Total 1790 ml Output Total 1950 ml Balance -160 ml Height & Weight Height: '" Weight: lbs. oz. kg; 36.21 BMI Method: General Appearance: No Apparent Distress, Chronically ill, Obese Respiratory: Crackles Cardiovascular: Regular Rate, Rhythm, Normal Peripheral Pulses Capillary Refill: Less Than 3 Seconds Gastrointestinal: normal bowel sounds, non tender Extremity: Normal Capillary Refill Neurologic/Psychiatric: Alert, Other (anxious, fatigued) Skin: Normal Color, Warm/Dry Results Lab Laboratory Tests 11/03/20 04:00 11/04/20 04:00 11/04/20 13:32 11/04/20 20:58 Assessment/Plan Assessment/Plan HyperK possible RTA repeat HCO3/INSULIN/D50/CaCL+ kayexalate; BMP at midnight KALINA GUTIÉRREZ MD Nov 04, 2020 21:58
[2020-11-04] MEDS ORDERED: SOD POLYSTERENE 15 GM/60 ML (KAYEXALATE) UNIT DOSE PO ONE (22:00)
[2020-11-04] MEDS ORDERED: SODIUM BICARB 8.4% 50 MEQ/50 ML VIAL IV ONE (22:00)
[2020-11-04] MEDS ORDERED: CALCIUM CHLORIDE 1 GM/10 ML (IMS) SYR INJ ONE (22:00)
[2020-11-04] MEDS ORDERED: SODIUM BICARB 8.4% 50 MEQ/50 ML (ABBOTT) SYR ONE (22:14)
[2020-11-04] MEDS ORDERED: inSUlin (REGULAR) HUMAN 1 UNIT/0.01 ML (CHARGE PER UNIT) IV ONE (22:15)
[2020-11-04] MEDS ORDERED: CALCIUM GLUC. 10% 4.65 MEQ/10 ML VIAL ONE (22:18)
[2020-11-04] MEDS ORDERED: CALCIUM CHLORIDE 1 GM/10 ML (IMS) SYR ONE (22:34)
[2020-11-05] VITALS (7 sets, daily range): BP systolic 119–148; BP diastolic 70–89
[2020-11-05] MEDS: CEFEPIME INJECTION 1,000 MG in WATER (STERILE) FOR INJECTION 10 ML IV SCH ×5 (00:06→23:41)
[2020-11-05] MEDS: inSUlin ASPART (NovoLOG) 1 UNIT/0.01 ML (CHARGE PER UNIT) SC SCH ×5 (00:06→23:41)
[2020-11-05] MEDS: METOCLOPRAMIDE INJ 10 MG/2 ML (REGLAN) IVP SCH ×5 (00:06→23:41)
[2020-11-05 01:28] LABS: POTASSIUM 5.9 MMOL/L (3.6-5.0)
[2020-11-05 01:29] LABS: CALCIUM 9.2 MG/DL (8.5-10.1); CREATININE SERUM 0.84 MG/DL (0.60-1.30)
[2020-11-05] MEDS: fentaNYL DRIP PRE-MIX 250 ML IV SCH ×5 (02:00→23:42)
[2020-11-05] MEDS: PROPOFOL DRIP (ICU) 100 ML IV SCH ×5 (02:01→23:43)
[2020-11-05] MEDS: RT-ALBUTEROL/IPRATROPIUM 3 ML (DUONEB) VIAL INH SCH ×6 (02:25→22:14)
[2020-11-05] MEDS: MIDAZOLAM DRIP PRE-MIX 100 ML IV SCH ×2 (05:57→23:43)
[2020-11-05] MEDS: POTASSIUM CL 10MEQ/50ML IVPB 50 ML IV SCH (05:58)
[2020-11-05] MEDS: MAGNESIUM 1 GM/100 ML IVPB 100 ML IV SCH (05:58)
[2020-11-05 06:09] LABS: ABG BASE EXCESS 0.8 MMOL/L (-2.5-2.5); ABG OXYGEN SATURATION 99 % (94-100); ABG PCO2 54 MMHG (35-45); ABG PO2 130 MMHG (79-93); ABG TCO2 28.3 MMOL/L (21.0-31.0)
[2020-11-05 06:12] LABS: BASOPHILS % (AUTO) 0 % (0-10); EOSINOPHILS % (AUTO) 0 % (0-10); MEAN CORPUSCULAR HEMOGLOBIN 31 pg (25-34); WHITE BLOOD COUNT 3.4 10^3/uL (4.3-11.0)
[2020-11-05 06:14] LABS: ALLENS TEST YES-POS; HEMATOCRIT 30 % (40-54); LYMPHOCYTES # (AUTO) 0.2 10^3/uL (1.0-4.0); LYMPHOCYTES % (AUTO) 5 % (12-44); MEAN CORPUSCULAR HGB CONC 31 g/dL (32-36); MEAN CORPUSCULAR VOLUME 102 fL (80-99); MEAN PLATELET VOLUME 10.4 fL (9.0-12.2); MONOCYTES # (AUTO) 0.1 10^3/uL (0.0-1.0); MONOCYTES % (AUTO) 3 % (0-12); NEUTROPHILS # (AUTO) 2.8 10^3/uL (1.8-7.8); NEUTROPHILS % (AUTO) 84 % (42-75); PATIENT TEMP 36.3; PLATELET COUNT 135 10^3/uL (130-400); VENTILATOR YES
[2020-11-05 06:15] LABS: ABG PH 7.31 (7.37-7.43); INSPIRED O2 60%
[2020-11-05 06:23] LABS: ALBUMIN 2.5 GM/DL (3.2-4.5); POTASSIUM 4.9 MMOL/L (3.6-5.0)
[2020-11-05 06:24] LABS: CALCIUM 8.8 MG/DL (8.5-10.1)
[2020-11-05 06:25] LABS: TOTAL PROTEIN 5.2 GM/DL (6.4-8.2)
[2020-11-05 06:27] LABS: BILIRUBIN,TOTAL 0.4 MG/DL (0.1-1.0)
[2020-11-05 06:29] LABS: CREATININE SERUM 0.75 MG/DL (0.60-1.30)
[2020-11-05 06:32] LABS: MAGNESIUM 2.6 MG/DL (1.6-2.4)
[2020-11-05] MEDS: AZITHROMYCIN INJECTION 250 MG in NS (IVPB) 250 ML IV SCH (07:44)
[2020-11-05] MEDS: PANTOPRAZOLE 40 MG (PROTONIX) VIAL IV SCH (07:44)
--- NOTE | 2020-11-05 08:26 | Progress Note - Hospitalist ---
Subjective HPI/CC On Admission Date Seen by Provider: Nov 05, 2020 Time Seen by Provider: 11:30 Diego Perry is a 70 year old male with PMH HTN, T2DM, HLD, obesity, who presented with shortness of breath. He reports feeling sick for weeks. He is very tired. He is wearing BiPAP. He would like to be put on the ventilator. 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 He feels exhausted. If his heart stops he would like us to let him pass away naturally without resuscitative efforts. I spoke with his daughter via telephone and updated her on his condition and plan. Subjective/Events-last exam Patient still intubated IV fluids changed to one half normal saline due to sodium level 159 PEEP of 10 and FiO2 of 70% Given Kayexalate and had a complete evacuation so rectal tube in place Objective Exam Vital Signs Vital Signs Date Time Temp Pulse Resp B/P (MAP) Pulse Ox O2 Delivery O2 Flow Rate FiO2 11/06/20 07:00 80 11/06/20 06:52 78 28 97 11/06/20 06:00 36.3 139/73 Mechanical Ventilator 100.00 Capillary Refill : Less Than 3 Seconds General Appearance: No Apparent Distress, WD/WN, Chronically ill, Other (Sed ated and intubated) Respiratory: Lungs Clear Cardiovascular: Regular Rate, Rhythm Results/Procedures Lab Laboratory Tests 11/06/20 03:38 Patient resulted labs reviewed. Imaging: Reviewed Imaging Report Assessment/Plan Assessment and Plan Assess & Plan/Chief Complaint Prognosis poor Critically ill DNR Aggressive treatment to continue Critical Care Ventilator Management DIANA CASTILLO DO Nov 05, 2020 08:26
[2020-11-05 08:30] LABS: ABG BASE EXCESS -0.2 MMOL/L (-2.5-2.5); ABG OXYGEN SATURATION 65 % (94-100); ABG PCO2 67 MMHG (35-45); ABG PO2 41 MMHG (79-93); ABG TCO2 28.9 MMOL/L (21.0-31.0)
[2020-11-05 08:32] LABS: ABG PH 7.22 (7.37-7.43); ALLENS TEST YES-POS; INSPIRED O2 65%; PATIENT TEMP 36.3; VENTILATOR YES
[2020-11-05] MEDS: LACRI-LUBE OPTHALMIC OINT 3.5 GM TUBE OU SCH ×2 (08:48→20:49)
[2020-11-05 08:52] LABS: ABG BASE EXCESS 0.2 MMOL/L (-2.5-2.5); ABG OXYGEN SATURATION 95 % (94-100); ABG PCO2 54 MMHG (35-45); ABG PO2 72 MMHG (79-93); ABG TCO2 28.1 MMOL/L (21.0-31.0)
[2020-11-05 08:54] LABS: ALLENS TEST YES-POS; INSPIRED O2 75%; VENTILATOR YES
[2020-11-05 08:55] LABS: PATIENT TEMP 35.2
--- NOTE | 2020-11-05 09:16 | Tele-ICU Progress Note ---
Subjective Date Seen by a Provider: Nov 05, 2020 Time Seen by a Provider: 07:00 Subjective/Events-last exam This virtual visit was conducted using real time audio/video. Thank you for asking us to see this patient for respiratory insufficiency and distress due to covid pna, on vent.. HPC: Recent events: FiO2 increased to 75%. Tube feed intolerant. Levophed D/Cd. PE: VSS O2 sat 99% HEENT: No obvious masses, adenopathy or JVD. Chest: crackles, rhonchi CV: RRR S1 S2 No murmur or added sounds. Abd: Non-tender. Bowel sounds Y. : Unremarkable. 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 No obvious focal findings. Extremities: edema Y. Capillary refill < 3 seconds. Skin: unremarkable. Results: Elevated Na 154, K down to 4.9, BUN 35. Decreased Hb 9.0, WCC 3.4. ABG 7.31/57/138. A/P: Respiratory insufficiency/distress: wean O2 as morenita. Available chart/ vitals / labs /images reviewed. CXR w B infilts. unchanged. Video assessment done using teleICU camera, rest of exam as per RN. Critical Care: critically ill patient. Cont alb., ppi, propofol, aristides., ins. Change ivf to 0.45. Wean O2 as morenita. Discussed with CORRINA Turner. Asked RN to reach out to eICU if any questions or concerns later. Time spent with patient/coordination of care with other health professionals (mins): 30 Sepsis Event Evaluation Height, Weight, BMI Height: '" Weight: lbs. oz. kg; 36.21 BMI Method: Exam Exam Patient acknowledged, consented, and participated in this virtual visit which was conducted using real time audio/video Vital Signs Date Time Temp Pulse Resp B/P (MAP) Pulse Ox O2 Delivery O2 Flow Rate FiO2 11/05/20 08:27 Mechanical Ventilator 75.00 11/05/20 08:26 35.0 11/05/20 08:00 68 27 135/70 97 Mechanical Ventilator 65.00 11/05/20 08:00 90 65 11/05/20 07:44 61 129/70 11/05/20 07:07 60 26 93 65 11/05/20 07:00 60 11/05/20 07:00 60 26 130/71 93 Mechanical Ventilator 65.00 11/05/20 06:30 Mechanical Ventilator 65.00 11/05/20 06:00 60 27 139/70 100 Mechanical Ventilator 75.00 11/05/20 06:00 Mechanical Ventilator 75.00 11/05/20 05:57 69 11/05/20 05:00 63 26 136/75 97 Mechanical Ventilator 60.00 11/05/20 04:23 93 90 11/05/20 04:18 Mechanical Ventilator 90.00 11/05/20 04:00 36.1 67 26 133/70 94 Mechanical Ventilator 60.00 11/05/20 03:50 68 26 95 100 11/05/20 03:00 36.6 Mechanical Ventilator 60.00 11/05/20 03:00 36.1 70 26 119/89 95 Mechanical Ventilator 60.00 11/05/20 02:25 68 26 97 60 11/05/20 02:01 69 11/05/20 02:00 98 Mechanical Ventilator 60.00 11/05/20 02:00 36.2 69 15 135/70 98 Mechanical Ventilator 60.00 11/05/20 01:17 Mechanical Ventilator 65.00 11/05/20 01:00 70 11/05/20 01:00 36.2 70 26 131/68 99 Mechanical Ventilator 75.00 11/05/20 00:00 94 75 11/05/20 00:00 36.1 73 26 134/71 91 Mechanical Ventilator 75.00 11/04/20 23:43 Mechanical Ventilator 75.00 11/04/20 23:11 36.1 Mechanical Ventilator 65.00 11/04/20 23:00 36.1 77 24 129/71 91 Mechanical Ventilator 65.00 11/04/20 22:00 36.1 75 26 119/67 98 Mechanical Ventilator 65.00 11/04/20 21:46 Mechanical Ventilator 65.00 11/04/20 21:39 Mechanical Ventilator 60.00 11/04/20 21:28 75 26 92 75 11/04/20 21:00 36.2 76 26 121/64 98 Mechanical Ventilator 75.00 11/04/20 20:28 76 11/04/20 20:00 91 75 11/04/20 20:00 36.3 77 26 122/68 97 Mechanical Ventilator 75.00 11/04/20 19:11 78 26 94 75 11/04/20 19:00 36.3 Mechanical Ventilator 75.00 11/04/20 19:00 36.4 77 26 122/65 95 Mechanical Ventilator 75.00 11/04/20 19:00 80 11/04/20 18:00 36.5 74 26 128/68 95 Mechanical Ventilator 75.00 11/04/20 17:00 36.5 74 23 127/69 94 Mechanical Ventilator 75.00 11/04/20 16:00 36.4 73 21 128/69 95 Mechanical Ventilator 75.00 11/04/20 16:00 92 75 11/04/20 15:01 Mechanical Ventilator 75.00 11/04/20 15:00 36.5 71 24 134/73 96 Mechanical Ventilator 80.00 11/04/20 15:00 70 128/71 11/04/20 14:21 Mechanical Ventilator 80.00 11/04/20 14:02 70 27 99 90 11/04/20 14:00 36.4 70 26 130/71 99 Mechanical Ventilator 90.00 11/04/20 13:00 36.3 70 27 130/69 Mechanical Ventilator 90.00 11/04/20 12:43 69 11/04/20 12:00 36.3 69 27 125/73 94 Mechanical Ventilator 90.00 11/04/20 11:46 Mechanical Ventilator 90.00 11/04/20 11:46 100 95 11/04/20 11:00 36.4 67 13 135/68 98 Mechanical Ventilator 95.00 11/04/20 10:49 Mechanical Ventilator 95.00 11/04/20 10:16 66 26 134/68 11/04/20 10:15 67 134/68 11/04/20 10:08 67 26 97 100 11/04/20 10:00 36.3 67 13 129/72 97 Mechanical Ventilator 100.00 I & O 11/05/20 07:00 Intake Total 3550 ml Output Total 3220 ml Balance 330 ml Height & Weight Height: '" Weight: lbs. oz. kg; 36.21 BMI Method: General Appearance: No Apparent Distress, Other (Sedated and intubated) Respiratory: Crackles Cardiovascular: Regular Rate, Rhythm Capillary Refill: Less Than 3 Seconds Peripheral Pulses: 1+ Left Dors-Pedis (L), 1+ Radial Pulses (R) Gastrointestinal: normal bowel sounds, non tender Extremity: Normal Capillary Refill Neurologic/Psychiatric: Alert, Other (anxious, fatigued) Skin: Normal Color, Warm/Dry Results Lab Laboratory Tests 11/04/20 04:00 11/04/20 13:32 11/04/20 20:58 11/05/20 00:40 11/05/20 05:45 Assessment/Plan Assessment/Plan see free text Critical Care: Ventilator Management ERICA MUSE MD Nov 05, 2020 09:16
[2020-11-05] MEDS ORDERED: inSUlin (REGULAR) HUMAN 1 UNIT/0.01 ML (CHARGE PER UNIT) IV ONE (09:30)
[2020-11-05] MEDS ORDERED: SODIUM BICARB 8.4% 50 MEQ/50 ML (ABBOTT) SYR IV ONE (09:30)
[2020-11-05] MEDS: 1/2 NS IV SOLUTION 1,000 ML IV SCH ×2 (10:00→23:41)
[2020-11-05] MEDS: NOREPINEPHRINE 8 MG/250 ML 250 ML IV SCH ×2 (10:43→23:00)
[2020-11-05] MEDS ORDERED: CALCIUM CHLORIDE 1 GM/10 ML (IMS) SYR INJ ONE (11:52)
[2020-11-05] MEDS: ENOXAPARIN 40 MG/0.4 ML (LOVENOX) SYR SC SCH (16:20)
[2020-11-06 02:13] VITALS: BP 137/75
[2020-11-06] MEDS: RT-ALBUTEROL/IPRATROPIUM 3 ML (DUONEB) VIAL INH SCH ×6 (02:13→22:01)
[2020-11-06 03:47] LABS: ABG BASE EXCESS 2.2 MMOL/L (-2.5-2.5); ABG OXYGEN SATURATION 91 % (94-100); ABG PCO2 57 MMHG (35-45); ABG PO2 70 MMHG (79-93); ABG TCO2 29.6 MMOL/L (21.0-31.0)
[2020-11-06 03:48] LABS: ALLENS TEST YES-POS; INSPIRED O2 65%; VENTILATOR YES
[2020-11-06 03:49] LABS: BASOPHILS % (AUTO) 0 % (0-10); EOSINOPHILS % (AUTO) 0 % (0-10); HEMOGLOBIN 9.1 g/dL (13.3-17.7); LYMPHOCYTES # (AUTO) 0.2 10^3/uL (1.0-4.0)
[2020-11-06 03:51] LABS: HEMATOCRIT 30 % (40-54); LYMPHOCYTES % (AUTO) 5 % (12-44); MEAN CORPUSCULAR HEMOGLOBIN 31 pg (25-34); MEAN CORPUSCULAR HGB CONC 30 g/dL (32-36); MEAN CORPUSCULAR VOLUME 103 fL (80-99); MEAN PLATELET VOLUME 10.7 fL (9.0-12.2); MONOCYTES # (AUTO) 0.1 10^3/uL (0.0-1.0); MONOCYTES % (AUTO) 3 % (0-12); NEUTROPHILS # (AUTO) 3.3 10^3/uL (1.8-7.8); NEUTROPHILS % (AUTO) 85 % (42-75); PLATELET COUNT 135 10^3/uL (130-400); WHITE BLOOD COUNT 3.9 10^3/uL (4.3-11.0)
[2020-11-06 03:52] LABS: PATIENT TEMP 36.9
[2020-11-06 03:57] LABS: ABG PH 7.31 (7.37-7.43)
[2020-11-06 04:12] LABS: ALBUMIN 2.5 GM/DL (3.2-4.5); POTASSIUM 4.7 MMOL/L (3.6-5.0)
[2020-11-06 04:13] LABS: CALCIUM 8.2 MG/DL (8.5-10.1)
[2020-11-06 04:15] LABS: TOTAL PROTEIN 5.3 GM/DL (6.4-8.2)
[2020-11-06 04:16] LABS: BILIRUBIN,TOTAL 0.4 MG/DL (0.1-1.0)
[2020-11-06 04:18] LABS: CREATININE SERUM 0.79 MG/DL (0.60-1.30); PHOSPHORUS 3.2 MG/DL (2.3-4.7)
[2020-11-06 04:21] LABS: MAGNESIUM 2.3 MG/DL (1.6-2.4)
[2020-11-06] MEDS: POTASSIUM CL 10MEQ/50ML IVPB 50 ML IV SCH (04:33)
[2020-11-06] MEDS: MAGNESIUM 1 GM/100 ML IVPB 100 ML IV SCH (04:33)
[2020-11-06] MEDS: inSUlin ASPART (NovoLOG) 1 UNIT/0.01 ML (CHARGE PER UNIT) SC SCH ×3 (04:33→17:21)
[2020-11-06] MEDS: fentaNYL DRIP PRE-MIX 250 ML IV SCH ×5 (05:07→23:05)
[2020-11-06] MEDS: METOCLOPRAMIDE INJ 10 MG/2 ML (REGLAN) IVP SCH ×3 (05:07→17:29)
[2020-11-06] MEDS: CEFEPIME INJECTION 1,000 MG in WATER (STERILE) FOR INJECTION 10 ML IV SCH ×3 (05:08→17:28)
[2020-11-06] MEDS: PROPOFOL DRIP (ICU) 100 ML IV SCH ×6 (05:08→17:30)
[2020-11-06 06:52] VITALS: BP 152/78
--- NOTE | 2020-11-06 08:02 | Progress Note - Hospitalist ---
Subjective HPI/CC On Admission Date Seen by Provider: Nov 06, 2020 Time Seen by Provider: 11:30 Diego Perry is a 70 year old male with PMH HTN, T2DM, HLD, obesity, who presented with shortness of breath. He reports feeling sick for weeks. He is very tired. He is wearing BiPAP. He would like to be put on the ventilator. 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 He feels exhausted. If his heart stops he would like us to let him pass away naturally without resuscitative efforts. I spoke with his daughter via telephone and updated her on his condition and plan. Subjective/Events-last exam Patient still intubated Prognosis becoming more more poor Prone maintained Review of Systems General: Fatigue, Malaise Objective Exam Vital Signs Vital Signs Date Time Temp Pulse Resp B/P (MAP) Pulse Ox O2 Delivery O2 Flow Rate FiO2 11/06/20 18:28 70 26 97 70 11/06/20 18:00 36.0 115/71 Mechanical Ventilator 70.00 Capillary Refill : Less Than 3 Seconds General Appearance: No Apparent Distress, WD/WN, Chronically ill, Other (Sedated and intubated) Respiratory: No Accessory Muscle Use, No Respiratory Distress, Crackles, Decreased Breath Sounds Results/Procedures Lab Laboratory Tests 11/06/20 03:38 Patient resulted labs reviewed. Imaging: Reviewed Imaging Report Assessment/Plan Assessment and Plan Assess & Plan/Chief Complaint Acute hypoxic respiratory failure due to COVID-19 pneumonia now ventilator dependent Prognosis poor Critically ill DNR Aggressive treatment to continue Critical Care Ventilator Management DIANA CASTILLO DO Nov 06, 2020 08:02
[2020-11-06] MEDS: AZITHROMYCIN INJECTION 250 MG in NS (IVPB) 250 ML IV SCH (08:29)
[2020-11-06] MEDS: LACRI-LUBE OPTHALMIC OINT 3.5 GM TUBE OU SCH ×2 (08:29→21:03)
[2020-11-06] MEDS: PANTOPRAZOLE 40 MG (PROTONIX) VIAL IV SCH (08:29)
--- NOTE | 2020-11-06 08:31 | Diagnostic Imaging Report ---
Indication: Dyspnea, followup COVID pneumonia. Comparison: 11/04/2020. Discussion: Single portable upright view of the chest was obtained. Severe pulmonary infiltrates are slightly decreased. Endotracheal tube, enteric tube, and left-sided central venous catheter stable. No definite pleural fluid. No pneumothorax or osseous abnormality. Impression: 1. Severe pulmonary infiltrates, slightly decreased. Dictated by: Dictated on workstation # [id number]
--- NOTE | 2020-11-06 10:13 | Tele-ICU Progress Note ---
Subjective Date Seen by a Provider: Nov 06, 2020 Time Seen by a Provider: 09:00 Subjective/Events-last exam This virtual visit was conducted using real time audio/video. Thank you for asking us to see this patient for respiratory insufficiency and distress due to Covid pna requiring mechanical ventilation. HPC: Recent events: Worsening gas exchange w FiO2 90%/+16. PE: VSS O2 sat 88-90% on 90%/+16. HEENT: No obvious masses, adenopathy or JVD. Chest: Coarse BS on auscultation. CV: RRR S1 S2 No murmur or added sounds. Abd: Non-tender. Bowel sounds Y. : Unremarkable. 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 No obvious focal findings. Extremities: 1-2 + edema. Capillary refill < 3 seconds. Skin: unremarkable. Results: Elevated Na 152, BUN 42. Not on diuretics. cont 1/2 nl saline.. Decreased WCC 3.9 but improved, Hb 9.1. CXR w B infilts. No PTX. A/P: Respiratory insufficiency/distress: Cont vent support. Wean FiO2 as morenita. Proning PRN. Available chart/ vitals / labs /images reviewed. Video assessment done using teleICU camera, rest of exam as per RN. Critical Care: critically ill patient. TF restarted. Cont Dex., abx., duonebs, insulin. Discussed with CORRINA Turner. Asked RN to reach out to eICU if any questions or concerns later. Time spent with patient/coordination of care with other health professionals (mins): 26 Sepsis Event Evaluation Height, Weight, BMI Height: '" Weight: lbs. oz. kg; 36.21 BMI Method: Exam Exam Patient acknowledged, consented, and participated in this virtual visit which was conducted using real time audio/video Vital Signs Date Time Temp Pulse Resp B/P (MAP) Pulse Ox O2 Delivery O2 Flow Rate FiO2 11/06/20 09:03 90 135/69 11/06/20 09:02 Mechanical Ventilator 90.00 11/06/20 09:00 36.0 90 15 135/69 91 Mechanical Ventilator 80.00 11/06/20 08:25 94 Mechanical Ventilator 80 11/06/20 08:00 36.7 85 23 147/75 91 Mechanical Ventilator 80.00 11/06/20 07:00 80 11/06/20 07:00 86 11/06/20 07:00 35.4 79 26 141/75 97 Mechanical Ventilator 100.00 11/06/20 06:52 78 28 97 100 11/06/20 06:00 36.3 76 26 139/73 97 Mechanical Ventilator 100.00 11/06/20 05:20 93 Mechanical Ventilator 65.00 11/06/20 05:08 137/76 11/06/20 05:00 35.7 74 16 137/76 95 Mechanical Ventilator 70.00 11/06/20 04:00 36.5 74 15 142/76 94 Mechanical Ventilator 70.00 11/06/20 03:53 36.5 91 Mechanical Ventilator 70.00 11/06/20 03:49 92 Mechanical Ventilator 65 11/06/20 03:00 36.8 80 27 138/81 92 Mechanical Ventilator 55.00 11/06/20 02:13 80 28 93 55 11/06/20 02:00 36.8 80 15 134/72 94 Mechanical Ventilator 55.00 11/06/20 01:00 80 11/06/20 01:00 37.0 80 26 139/73 94 Mechanical Ventilator 55.00 11/06/20 00:00 37.1 82 27 140/71 93 Mechanical Ventilator 55.00 11/05/20 23:52 94 Mechanical Ventilator 55.00 11/05/20 23:52 96 Mechanical Ventilator 55 11/05/20 23:43 81 138/71 11/05/20 23:43 138/71 11/05/20 23:00 37.3 82 34 135/72 97 Mechanical Ventilator 60.00 11/05/20 22:14 82 26 96 60 11/05/20 22:00 37.5 82 15 137/71 97 Mechanical Ventilator 60.00 11/05/20 21:00 37.6 84 28 136/72 96 Mechanical Ventilator 60.00 11/05/20 20:55 37.6 95 Mechanical Ventilator 60.00 11/05/20 20:00 37.7 83 26 130/69 98 Mechanical Ventilator 65.00 11/05/20 20:00 96 Mechanical Ventilator 60 11/05/20 19:04 84 28 95 75 11/05/20 19:00 83 11/05/20 19:00 37.7 82 21 137/70 97 Mechanical Ventilator 65.00 11/05/20 18:03 Mechanical Ventilator 65.00 11/05/20 18:00 37.7 84 26 131/68 96 Mechanical Ventilator 70.00 11/05/20 17:54 82 133/68 11/05/20 17:00 37.5 82 21 134/68 97 Mechanical Ventilator 70.00 11/05/20 16:21 97 70 11/05/20 16:00 36.2 80 28 132/71 97 Mechanical Ventilator 70.00 11/05/20 15:21 Mechanical Ventilator 70.00 11/05/20 15:00 36.9 78 133/67 96 Mechanical Ventilator 60.00 11/05/20 14:42 75 29 97 75 11/05/20 14:00 36.3 74 26 133/69 92 Mechanical Ventilator 60.00 11/05/20 13:25 72 142/77 11/05/20 13:00 35.7 73 138/73 92 Mechanical Ventilator 60.00 11/05/20 12:49 76 11/05/20 12:00 73 15 119/48 100 Mechanical Ventilator 60.00 11/05/20 11:49 35.3 11/05/20 11:35 97 60 11/05/20 11:35 Mechanical Ventilator 60.00 11/05/20 11:00 74 26 149/73 98 Mechanical Ventilator 70.00 11/05/20 10:35 Mechanical Ventilator 70.00 11/05/20 10:22 63 26 96 75 I & O 11/06/20 06:59 Intake Total 2015 ml Output Total 2315 ml Balance -300 ml Height & Weight Height: '" Weight: lbs. oz. kg; 36.21 BMI Method: General Appearance: No Apparent Distress, WD/WN, Chronically ill, Other (Sedated and intubated) Respiratory: Lungs Clear Cardiovascular: Regular Rate, Rhythm Capillary Refill: Less Than 3 Seconds Peripheral Pulses: 1+ Left Dors-Pedis (L), 1+ Radial Pulses (R) Gastrointestinal: normal bowel sounds, non tender Extremity: Normal Capillary Refill Neurologic/Psychiatric: Alert, Other (anxious, fatigued) Skin: Normal Color, Warm/Dry Results Lab Laboratory Tests 11/04/20 13:32 11/04/20 20:58 11/05/20 00:40 11/05/20 05:45 11/06/20 03:38 Assessment/Plan Assessment/Plan See free text. Critical Care: Ventilator Management ERICA MUSE MD Nov 06, 2020 10:13
[2020-11-06 10:40] VITALS: BP 125/66
[2020-11-06] MEDS: NOREPINEPHRINE 8 MG/250 ML 250 ML IV SCH (11:38)
[2020-11-06] MEDS: MIDAZOLAM DRIP PRE-MIX 100 ML IV SCH (13:40)
[2020-11-06] MEDS: 1/2 NS IV SOLUTION 1,000 ML IV SCH (13:42)
[2020-11-06 14:57] VITALS: BP 117/61
[2020-11-06] MEDS: ENOXAPARIN 40 MG/0.4 ML (LOVENOX) SYR SC SCH (16:03)
[2020-11-06 18:28] VITALS: BP 115/70
[2020-11-06 22:01] VITALS: BP 115/63
[2020-11-07] MEDS: inSUlin ASPART (NovoLOG) 1 UNIT/0.01 ML (CHARGE PER UNIT) SC SCH ×5 (00:25→22:50)
[2020-11-07] MEDS: MIDAZOLAM DRIP PRE-MIX 100 ML IV SCH ×2 (00:26→12:29)
[2020-11-07] MEDS: CEFEPIME INJECTION 1,000 MG in WATER (STERILE) FOR INJECTION 10 ML IV SCH ×5 (00:26→22:50)
[2020-11-07] MEDS: PROPOFOL DRIP (ICU) 100 ML IV SCH ×7 (00:26→19:39)
[2020-11-07] MEDS: NOREPINEPHRINE 8 MG/250 ML 250 ML IV SCH ×3 (00:27→22:59)
[2020-11-07 01:33] VITALS: BP 115/59
[2020-11-07] MEDS: RT-ALBUTEROL/IPRATROPIUM 3 ML (DUONEB) VIAL INH SCH ×6 (01:33→22:17)
[2020-11-07 03:27] LABS: ABG BASE EXCESS 3.2 MMOL/L (-2.5-2.5); ABG OXYGEN SATURATION 94 % (94-100); ABG PCO2 60 MMHG (35-45); ABG PO2 78 MMHG (79-93)
[2020-11-07 03:28] LABS: ALLENS TEST YES-POS; BASOPHILS % (AUTO) 0 % (0-10); EOSINOPHILS % (AUTO) 0 % (0-10); HEMATOCRIT 28 % (40-54); HEMOGLOBIN 8.3 g/dL (13.3-17.7); INSPIRED O2 80%; MEAN CORPUSCULAR HGB CONC 29 g/dL (32-36); PATIENT TEMP 36.3; VENTILATOR YES; WHITE BLOOD COUNT 3.5 10^3/uL (4.3-11.0)
[2020-11-07 03:30] LABS: LYMPHOCYTES # (AUTO) 0.1 10^3/uL (1.0-4.0); LYMPHOCYTES % (AUTO) 3 % (12-44); MEAN CORPUSCULAR HEMOGLOBIN 31 pg (25-34); MEAN CORPUSCULAR VOLUME 104 fL (80-99); MEAN PLATELET VOLUME 11.1 fL (9.0-12.2); MONOCYTES # (AUTO) 0.1 10^3/uL (0.0-1.0); MONOCYTES % (AUTO) 2 % (0-12); NEUTROPHILS # (AUTO) 3.2 10^3/uL (1.8-7.8); NEUTROPHILS % (AUTO) 91 % (42-75); PLATELET COUNT 100 10^3/uL (130-400)
[2020-11-07] MEDS: fentaNYL DRIP PRE-MIX 250 ML IV SCH ×5 (03:35→21:11)
[2020-11-07 03:42] LABS: ALBUMIN 2.3 GM/DL (3.2-4.5)
[2020-11-07 03:45] LABS: TOTAL PROTEIN 5.1 GM/DL (6.4-8.2)
[2020-11-07 03:46] LABS: BILIRUBIN,TOTAL 0.4 MG/DL (0.1-1.0)
[2020-11-07 03:48] LABS: CREATININE SERUM 0.98 MG/DL (0.60-1.30); PHOSPHORUS 4.2 MG/DL (2.3-4.7)
[2020-11-07 03:51] LABS: MAGNESIUM 2.4 MG/DL (1.6-2.4)
[2020-11-07] MEDS: POTASSIUM CL 10MEQ/50ML IVPB 50 ML IV SCH (04:56)
[2020-11-07] MEDS: MAGNESIUM 1 GM/100 ML IVPB 100 ML IV SCH (04:57)
[2020-11-07 07:27] VITALS: BP 123/62
[2020-11-07] MEDS: LACRI-LUBE OPTHALMIC OINT 3.5 GM TUBE OU SCH ×2 (08:00→19:36)
[2020-11-07] MEDS: AZITHROMYCIN INJECTION 250 MG in NS (IVPB) 250 ML IV SCH (08:00)
[2020-11-07] MEDS: PANTOPRAZOLE 40 MG (PROTONIX) VIAL IV SCH (08:00)
[2020-11-07] MEDS: 1/2 NS IV SOLUTION 1,000 ML IV SCH (08:01)
[2020-11-07] MEDS ORDERED: FUROSEMIDE 40 MG/4 ML INJ (LASIX) IVP ONE (08:45)
[2020-11-07] MEDS ORDERED: fentaNYL INJ 100 MCG/2 ML AMP IVP PRN (08:45)
[2020-11-07] MEDS ORDERED: fentaNYL INJ 100 MCG/2 ML AMP ONE (08:47)
[2020-11-07] MEDS ORDERED: FUROSEMIDE 40 MG/4 ML INJ (LASIX) ONE (08:48)
--- NOTE | 2020-11-07 09:25 | Tele-ICU Progress Note ---
Subjective Date Seen by a Provider: Nov 07, 2020 Time Seen by a Provider: 09:24 Sepsis Event Evaluation Height, Weight, BMI Height: '" Weight: lbs. oz. kg; 36.21 BMI Method: Exam Exam Patient acknowledged, consented, and participated in this virtual visit which was conducted using real time audio/video Vital Signs Date Time Temp Pulse Resp B/P (MAP) Pulse Ox O2 Delivery O2 Flow Rate FiO2 11/07/20 08:01 94 Mechanical Ventilator 80 11/07/20 08:00 36.3 71 26 134/68 96 80.00 11/07/20 08:00 72 120/59 11/07/20 07:59 72 120/59 11/07/20 07:27 69 26 92 80 11/07/20 07:00 36.3 68 26 121/66 92 Mechanical Ventilator 80.00 11/07/20 07:00 68 11/07/20 06:00 36.2 69 26 117/62 93 Mechanical Ventilator 80.00 11/07/20 05:00 36.2 68 26 119/65 94 Mechanical Ventilator 80.00 11/07/20 04:00 94 Mechanical Ventilator 80 11/07/20 04:00 36.0 69 26 118/64 90 Mechanical Ventilator 80.00 11/07/20 03:21 36.3 Mechanical Ventilator 80.00 11/07/20 03:15 36.3 71 26 116/62 89 Mechanical Ventilator 60.00 11/07/20 02:00 36.6 75 113/58 94 Mechanical Ventilator 60.00 11/07/20 01:55 36.6 Mechanical Ventilator 60.00 11/07/20 01:33 74 26 94 60 11/07/20 01:00 75 11/07/20 01:00 36.5 75 112/60 94 Mechanical Ventilator 60.00 11/07/20 00:50 Mechanical Ventilator 60.00 11/07/20 00:35 96 Mechanical Ventilator 65 11/07/20 00:27 72 11/07/20 00:26 72 11/07/20 00:26 72 11/07/20 00:00 36.4 73 114/60 96 Mechanical Ventilator 65.00 11/06/20 23:08 36.4 Mechanical Ventilator 65.00 11/06/20 23:00 36.3 71 112/60 98 Mechanical Ventilator 70.00 9/12/21 22:01 63 26 97 70 11/06/20 22:00 36.0 68 115/63 97 Mechanical Ventilator 70.00 11/06/20 21:58 36.0 Mechanical Ventilator 70.00 11/06/20 21:00 35.8 68 27 117/63 97 Mechanical Ventilator 70.00 11/06/20 20:00 35.9 69 26 123/68 97 Mechanical Ventilator 70.00 11/06/20 20:00 94 Mechanical Ventilator 70 11/06/20 19:00 35.5 Mechanical Ventilator 70.00 11/06/20 19:00 35.9 71 26 120/64 97 Mechanical Ventilator 70.00 11/06/20 19:00 71 11/06/20 18:28 70 26 97 70 11/06/20 18:00 36.0 71 26 115/71 96 Mechanical Ventilator 70.00 11/06/20 17:30 71 112/61 11/06/20 17:29 71 112/61 11/06/20 17:00 36.0 71 26 114/62 96 Mechanical Ventilator 70.00 11/06/20 16:08 Mechanical Ventilator 70.00 11/06/20 16:00 36.1 75 26 111/60 97 Mechanical Ventilator 75.00 11/06/20 15:38 Mechanical Ventilator 75.00 11/06/20 15:19 97 Mechanical Ventilator 80 11/06/20 15:01 75 11/06/20 15:00 36.4 77 26 114/62 97 Mechanical Ventilator 85.00 11/06/20 14:57 78 26 97 80 11/06/20 14:00 36.5 82 26 124/65 96 Mechanical Ventilator 85.00 11/06/20 13:40 82 26 123/64 11/06/20 13:00 36.7 85 26 120/65 96 Mechanical Ventilator 85.00 11/06/20 13:00 89 11/06/20 12:37 86 121/67 11/06/20 12:36 87 121/67 11/06/20 12:18 97 Mechanical Ventilator 90 11/06/20 12:00 37.0 90 26 123/68 96 Mechanical Ventilator 85.00 11/06/20 11:46 Mechanical Ventilator 85.00 11/06/20 11:00 37.2 84 10 123/67 93 Mechanical Ventilator 90.00 11/06/20 10:40 84 28 92 90 11/06/20 10:00 37.3 86 14 125/75 93 Mechanical Ventilator 90.00 I & O 11/07/20 07:00 Intake Total 3620 ml Output Total 1900 ml Balance 1720 ml Height & Weight Height: '" Weight: lbs. oz. kg; 36.21 BMI Method: General Appearance: No Apparent Distress, WD/WN, Chronically ill, Other (Sedated and intubated) Respiratory: No Accessory Muscle Use, No Respiratory Distress, Crackles, Decreased Breath Sounds Cardiovascular: Regular Rate, Rhythm Capillary Refill: Less Than 3 Seconds Peripheral Pulses: 1+ Left Dors-Pedis (L), 1+ Radial Pulses (R) Gastrointestinal: normal bowel sounds, non tender Extremity: Normal Capillary Refill Neurologic/Psychiatric: Alert, Other (anxious, fatigued) Skin: Normal Color, Warm/Dry Results Lab Laboratory Tests 11/06/20 03:38 11/07/20 03:10 Assessment/Plan Assessment/Plan (Tele-ICU Physician , Progress Note ) Available chart/ vitals / labs / Images reviewed Video assessment done using teleICU camera, rest of exam as per RN Discussed with RN , EXAM PER RN Events overnight : afebrile I/O = +1200 Drips: LR Pressors: , hemodynamically stable Sedation gtt: ( RASS - 3 ) propofol 40 fent 275 , verced 7 follows commands on sedation vacation VENT SETTINGS and ABG reviewed Not candidate for SBT today Contraindications: Cardiovascular Stability / Se dation Score / FI02/PEEP / ABG / CXR Consultants: Hospital course: 10/30-transferred from OSH for change in mental status and low SpO2 in 70's, changed to tn [employer] oxygen, 40 lpm 80% 10/31 - INTUBATED - 45% fio2/rr22 peep22/tv 450 11/01 - TV 7 cc kg -= 460 11/02 - PC rr22 500 +8 15 - 24 11/03 -proned 40 % - TF was coming out upon turned to supine - Fio2 increased - ? aspiration 11/07 - 60 % - desats - > to 100% peep 24 A/P AHRF / ARDS due to severe COVID19 - PRONING 11/01 - AC460, 80% +16 rr 25 - desats - > to 100% peep 24 - check cxr , added mucomist for possible mucous plugging , stop IVF and try lasix x1 - cont to prone HCDS-Xvppovqmerg-9/COVID-19 PNA ( Not vaccinated , Dx 10/25 ) -not given Remdesivir or Actemra -Steroids IV - started 10/30 -Hypercoagulable state , DDIMER 1.5on 10/30 -> lovenox ppx dose , follow D dimer 11/08 with worsenign fio2 Suspected superimposed bact PNA -empiric abx Cefepime and Azithromycin 10/30 Cx sputum - GP Shock - levo OFF 11/01 ED - improving , stop IVF HyperNatremia ( also given lsix today - will cont TF water flushes , might need D5W gtt Thrombocytopenia associated with COVID-19 - normalized , dropped today PLT - probably delutional - will follow closely , CONT LOVENOC FOR NOW , add HIT T2DM with ketoacidosis -now off insulin drip - levemir - ISS transaminitis likely due to COVID-19. hyperNA tremia - IVF and TF adjusted [id number] on propofol - recheck tomorroe Anemia - follow Lines : Scl LEFT 10/30 (Central Line Necessity Reviewed) Weston: + OG: + Nutrition: start TF 11/01 --Hold TF in prone position , cont TF supine Analgesia: Anxiety/ delirium VTE Prophylaxis: aristides proph Stress Ulcer Prophylaxis: pepcid Glycemic Control: Plans in collaboration with bedside consultants and IM MDs. Discussed with RN to reach out if any questions or concerns A total of 40 minutes of critical care time was devoted to this patient today, required to treat and/or prevent further deterioration of critical care condition ( as above) . EMILIANO CARTER MD Nov 07, 2020 09:25
--- NOTE | 2020-11-07 09:35 | Diagnostic Imaging Report ---
INDICATION: Covid 19 pneumonia and ventilator support. TIME OF EXAM: 9:08 AM. COMPARISON: Correlation is made with the prior chest one day earlier. FINDINGS: The ET tube tip is above the irvin. A left-sided line has its tip overlying the SVC. Extensive bilateral infiltrates persist and show no real change. No effusion or pneumothorax is identified. IMPRESSION: Stable chest since the examination of one day earlier. The report was faxed to Infection Control by radha@9:34 AM. Dictated by: Dictated on workstation # [id number]
[2020-11-07 10:11] VITALS: BP 123/62
[2020-11-07] MEDS: aCETylcysteine 20% (MUCOMYST) 30ML SOLN VIAL INH SCH ×3 (10:19→18:54)
--- NOTE | 2020-11-07 13:00 | Progress Note ---
[facility] MED STUDENT 11/07/20 1300: Subjective Date Seen by a Provider: Nov 07, 2020 Time Seen by a Provider: 07:00 Subjective/Events-last exam Remains sedated and intubated. Had an episode of oxygen desaturation with repositioning this am. Sat's in the low 70's upon room arrival. PEEP increased to 24. RT suctioned and lavaged ETT. Lasix ordered and chest x ray. IVF's stopped. Review of Systems General: Other (unobtainable) HEENT: Other (unobtainable) Pulmonary: Other (unobtainable) Cardiovascular: Other (unobtainable) Gastrointestinal: Other (unobtainable) Genitourinary: Other (unobtainable) Musculoskeletal: other (unobtainable) Neurological: Other (unobtainable) Objective Exam Last Set of Vital Signs Vital Signs Date Time Temp Pulse Resp B/P (MAP) Pulse Ox O2 Delivery O2 Flow Rate FiO2 11/07/20 12:29 85 26 142/73 11/07/20 12:00 36.5 98 Mechanical Ventilator 80.00 11/07/20 10:11 100 Capillary Refill : Less Than 3 Seconds I&O Intake and Output 11/07/20 00:00 Intake Total 3515 ml Output Total 2000 ml Balance 1515 ml Intake Oral 0 ml IV Total 2850 ml Tube Feeding 435 ml Other 230 ml Output Urine Total 2000 ml General: Other (Sedated and intubated critically ill appearing) HEENT: Other (Pupils 2mm and sluggish. Endotracheal tube and OGT in place. Eyelid edema bilaterally. ) Neck: Supple, No LAD Lungs: Other (Diminished. Scattered rhonchi. ) Heart: Regular Rate, No Murmurs, Other (Cap refill <3seconds bilat finger nail beds. Radial and pedal pulses +2/4. ) Abdomen: Normal Bowel Sounds, Soft, No Tenderness, Other (Obese. BS normoactive x 4 quadrants. ) Extremities: No Clubbing, No Cyanosis, Normal Pulses, Other (nonpitting edema BLE. ) Skin: No Rashes, No Significant Lesion Neuro: Other (sedated) Psych/Mental Status: Other (sedated) Results Lab Laboratory Tests 11/06/20 17:06: Glucometer 158H 11/06/20 20:55: Glucometer 168H 11/06/20 23:42: Glucometer 161H 11/07/20 03:10: White Blood Count 3.5L, Red Blood Count 2.71L, Hemoglobin 8.3L, Hematocrit 28L, Mean Corpuscular Volume 104H, Mean Corpuscular Hemoglobin 31, Mean Corpuscular Hemoglobin Concent 29L, Red Cell Distribution Width 14.3, Platelet Count 100L, Mean Platelet Volume 11.1, Immature Granulocyte % (Auto) 3, Neutrophils (%) (Auto) 91H, Lymphocytes (%) (Auto) 3L, Monocytes (%) (Auto) 2, Eosinophils (%) (Auto) 0, Basophils (%) (Auto) 0, Neutrophils # (Auto) 3.2, Lymphocytes # (Auto) 0.1L, Monocytes # (Auto) 0.1, Eosinophils # (Auto) 0.0, Basophils # (Auto) 0.0, Immature Granulocyte # (Auto) 0.1, Percent Immature Platelet Fraction 5.4, Blood Gas Puncture Site RADIAL, Blood Gas Patient Temperature 36.3, Arterial Blood pH 7.30*L, Arterial Blood Partial Pressure CO2 60H, Arterial Blood Partial Pressure O2 78L, Arterial Blood HCO3 29H, Arterial Blood Total CO2 31.0, Arterial Blood Oxygen Saturation 94, Arterial Blood Base Excess 3.2H, Raji Test YES-POS, Blood Gas Ventilator Setting YES, Blood Gas Inspired Oxygen 80%, Sodium Level 150H, Potassium Level 5.0, Chloride Level 118H, Carbon Dioxide Level 24, Anion Gap 8, Blood Urea Nitrogen 50H, Creatinine 0.98, Estimat Glomerular Filtration Rate 76, BUN/Creatinine Ratio 51, Glucose Level 158H, Calcium Level 8.0L, Corrected Calcium 9.4, Phosphorus Level 4.2, Magnesium Level 2.4, Total Bilirubin 0.4, Aspartate Amino Transf (AST/SGOT) 23, Alanine Aminotransferase (ALT/SGPT) 30, Alkaline Phosphatase 41, Total Protein 5.1L, Albumin 2.3L 11/07/20 10:35: 11/07/20 11:16: Glucometer 141H Microbiology 10/30/20 Gram Stain - Final, Complete 10/30/20 Sputum Culture - Final, Complete Usual upper respiratory [place] Strep constellatus Assessment/Plan Assessment/Plan Assess & Plan/Chief Complaint Acute respiratory failure secondary to COVID-19/ARDS -had an episode of oxygen desaturation this am -mucomyst added, PEEP increased to 24. IVP lasix ordered. -wean as tolerated -AC/VC TV 460 FIO2 100%. PEEP 24. RR 26 COVID-19 PNA -11-07 cxray, Extensive bilateral infiltrates persist and show no real change. No effusion or pneumothorax. -decadron Suspected superimposed bacterial PNA -Cefepime and azithromycin Hypernatremia -NA 150 today -continue 1/2 NS Thrombocytopenia associated with COVID-19 -platelets 100 today -HIT assay ordered Transaminitis -resolved, continue to monitor Acute kidney injury -Resolved -continue to monitor Hypercoagulable state associated with COVID-19 -repeat d dimer 11-08 -lovenox Hypertrglyceridemia -tri's 168 on 11-05 -judicious use of propofol -continue to monitor T2DM with ketoacidosis -resolved -SSI q6hr accuchecks, levemir scheduled HTN HLD Obesity LILLIAM CASTILLO DO 11/08/20 0524: Subjective Subjective/Events-last exam Patient having more difficulties No indication of wean ability DNR Prognosis poor Objective Exam General: Other (Sedated and intubated critically ill appearing) Lungs: Other (Diminished. Scattered rhonchi. ) Assessment/Plan Assessment/Plan Assess & Plan/Chief Complaint Will be can talking to family Terminal extubation likely indicated Supervisory-Addendum Brief Verification & Attestation Participated in pt care: history, MDM, physical Personally performed: exam, history, MDM, supervision of care Care discussed with: Medical Student Procedures: n/a Results interpretation: Verified all documentation Verification and Attestation of Medical Student E/M Service A medical student performed and documented this service in my presence. I review ed and verified all information documented by the medical student and made modifications to such information, when appropriate. I personally performed the physical exam and medical decision making. Lilliam Castillo Nov 08, 2020,05:23 [facility] [employer] STUDENT Nov 07, 2020 13:00 LILLIAM CASTILLO DO Nov 08, 2020 05:24
[2020-11-07 14:36] VITALS: BP 133/69
[2020-11-07] MEDS: ENOXAPARIN 40 MG/0.4 ML (LOVENOX) SYR SC SCH (16:34)
[2020-11-07 18:58] VITALS: BP 138/73
[2020-11-07 22:18] VITALS: BP 128/70
[2020-11-08] MEDS: PROPOFOL DRIP (ICU) 100 ML IV SCH ×6 (01:37→23:40)
[2020-11-08] MEDS: MIDAZOLAM DRIP PRE-MIX 100 ML IV SCH ×2 (01:38→21:02)
[2020-11-08] MEDS: fentaNYL DRIP PRE-MIX 250 ML IV SCH ×4 (01:38→23:13)
[2020-11-08 03:11] VITALS: BP 126/67
[2020-11-08] MEDS: aCETylcysteine 20% (MUCOMYST) 30ML SOLN VIAL INH SCH ×4 (03:11→18:38)
[2020-11-08] MEDS: RT-ALBUTEROL/IPRATROPIUM 3 ML (DUONEB) VIAL INH SCH ×6 (03:11→22:15)
[2020-11-08 04:06] LABS: ABG BASE EXCESS -3.3 MMOL/L (-2.5-2.5); ABG OXYGEN SATURATION 97 % (94-100); ABG PO2 93 MMHG (79-93); ABG TCO2 26.7 MMOL/L (21.0-31.0)
[2020-11-08 04:08] LABS: BASOPHILS % (AUTO) 0 % (0-10)
[2020-11-08 04:10] LABS: EOSINOPHILS % (AUTO) 0 % (0-10); HEMATOCRIT 29 % (40-54); HEMOGLOBIN 8.4 g/dL (13.3-17.7); LYMPHOCYTES # (AUTO) 0.1 10^3/uL (1.0-4.0); LYMPHOCYTES % (AUTO) 2 % (12-44); MEAN CORPUSCULAR HEMOGLOBIN 31 pg (25-34); MEAN CORPUSCULAR HGB CONC 29 g/dL (32-36); MEAN CORPUSCULAR VOLUME 106 fL (80-99); MEAN PLATELET VOLUME 11.1 fL (9.0-12.2); MONOCYTES # (AUTO) 0.1 10^3/uL (0.0-1.0); MONOCYTES % (AUTO) 3 % (0-12); NEUTROPHILS # (AUTO) 3.9 10^3/uL (1.8-7.8); NEUTROPHILS % (AUTO) 91 % (42-75); PLATELET COUNT 104 10^3/uL (130-400); WHITE BLOOD COUNT 4.3 10^3/uL (4.3-11.0)
[2020-11-08 04:13] LABS: ALLENS TEST YES-POS; INSPIRED O2 100%
[2020-11-08 04:14] LABS: VENTILATOR YES
[2020-11-08 04:16] LABS: PATIENT TEMP 37
[2020-11-08 04:17] LABS: ABG PH 7.15 (7.37-7.43)
[2020-11-08 04:18] LABS: ABG PCO2 73 MMHG (35-45)
[2020-11-08 04:22] LABS: ALBUMIN 2.5 GM/DL (3.2-4.5); POTASSIUM 5.8 MMOL/L (3.6-5.0)
[2020-11-08 04:23] LABS: CALCIUM 8.1 MG/DL (8.5-10.1)
[2020-11-08 04:24] LABS: TOTAL PROTEIN 5.6 GM/DL (6.4-8.2)
[2020-11-08 04:26] LABS: BILIRUBIN,TOTAL 0.3 MG/DL (0.1-1.0)
[2020-11-08 04:28] LABS: CREATININE SERUM 2.07 MG/DL (0.60-1.30); PHOSPHORUS 6.3 MG/DL (2.3-4.7)
[2020-11-08 04:31] LABS: MAGNESIUM 2.8 MG/DL (1.6-2.4)
[2020-11-08] MEDS: MAGNESIUM 1 GM/100 ML IVPB 100 ML IV SCH (05:02)
[2020-11-08] MEDS: CEFEPIME INJECTION 1,000 MG in WATER (STERILE) FOR INJECTION 10 ML IV SCH ×3 (05:02→20:59)
[2020-11-08] MEDS: POTASSIUM CL 10MEQ/50ML IVPB 50 ML IV SCH (05:02)
[2020-11-08] MEDS: inSUlin ASPART (NovoLOG) 1 UNIT/0.01 ML (CHARGE PER UNIT) SC SCH ×5 (05:03→23:24)
[2020-11-08 07:08] VITALS: BP 129/67
[2020-11-08] MEDS ORDERED: DEXTROSE 50% 50 ML (IMS) SYR IV ONE (07:45)
[2020-11-08] MEDS ORDERED: inSUlin (REGULAR) HUMAN 1 UNIT/0.01 ML (CHARGE PER UNIT) IV ONE (07:45)
[2020-11-08] MEDS ORDERED: SOD POLYSTERENE 15 GM/60 ML (KAYEXALATE) UNIT DOSE PO ONE (07:45)
[2020-11-08] MEDS ORDERED: SODIUM BICARB 8.4% 50 MEQ/50 ML (ABBOTT) SYR IV ONE (07:45)
[2020-11-08] MEDS ORDERED: CALCIUM CHLORIDE 1 GM/10 ML (IMS) SYR IV ONE (07:45)
[2020-11-08] MEDS: LACRI-LUBE OPTHALMIC OINT 3.5 GM TUBE OU SCH ×2 (08:10→19:42)
[2020-11-08] MEDS: AZITHROMYCIN INJECTION 250 MG in NS (IVPB) 250 ML IV SCH (08:10)
[2020-11-08] MEDS: PANTOPRAZOLE 40 MG (PROTONIX) VIAL IV SCH (08:10)
[2020-11-08] MEDS: ALBUMIN 25% 25 GM/100 ML 100 ML IV SCH ×2 (09:22→15:03)
--- NOTE | 2020-11-08 10:04 | Tele-ICU Progress Note ---
Subjective Date Seen by a Provider: Nov 08, 2020 Time Seen by a Provider: 10:03 Sepsis Event Evaluation Height, Weight, BMI Height: '" Weight: lbs. oz. kg; 36.21 BMI Method: Exam Exam Patient acknowledged, consented, and participated in this virtual visit which was conducted using real time audio/video Vital Signs Date Time Temp Pulse Resp B/P (MAP) Pulse Ox O2 Delivery O2 Flow Rate FiO2 11/08/20 08:15 94 Mechanical Ventilator 90 11/08/20 08:00 37.0 88 32 118/68 91 Mechanical Ventilator 80.00 11/08/20 07:46 80 11/08/20 07:16 80 11/08/20 07:08 88 26 96 90 11/08/20 07:00 36.4 89 26 129/67 95 Mechanical Ventilator 80.00 11/08/20 06:49 88 11/08/20 06:00 36.6 92 26 134/68 95 Mechanical Ventilator 90.00 11/08/20 05:00 36.5 98 26 131/71 93 Mechanical Ventilator 90.00 11/08/20 04:00 37.0 99 132/68 94 Mechanical Ventilator 90.00 11/08/20 04:00 97 Mechanical Ventilator 90 11/08/20 03:11 95 23 93 80 11/08/20 03:00 36.8 96 26 126/67 97 Mechanical Ventilator 90.00 11/08/20 02:00 36.7 95 26 131/68 94 Mechanical Ventilator 90.00 11/08/20 01:38 95 11/08/20 01:38 95 11/08/20 01:37 95 11/08/20 01:00 36.5 87 26 128/66 95 Mechanical Ventilator 90.00 11/08/20 01:00 87 11/08/20 00:00 36.3 82 26 129/67 95 Mechanical Ventilator 90.00 11/08/20 00:00 36.1 Mechanical Ventilator 90.00 11/07/20 23:59 97 Mechanical Ventilator 90 11/07/20 23:00 36.0 80 25 130/66 96 Mechanical Ventilator 92.00 11/07/20 22:59 80 11/07/20 22:18 77 26 97 80 11/07/20 22:00 36.0 97 Mechanical Ventilator 92.00 11/07/20 22:00 35.9 76 26 130/70 97 Mechanical Ventilator 92.00 11/07/20 21:00 36.1 75 26 141/73 97 Mechanical Ventilator 80.00 11/07/20 20:00 36.1 78 26 137/71 97 Mechanical Ventilator 80.00 11/07/20 20:00 97 Mechanical Ventilator 90 11/07/20 19:39 80 11/07/20 19:36 80 11/07/20 19:00 78 11/07/20 19:00 36.2 78 26 131/67 97 Mechanical Ventilator 80.00 11/07/20 18:58 78 26 97 80 11/07/20 18:00 36.2 77 26 133/69 98 Mechanical Ventilator 80.00 11/07/20 17:00 36.2 78 26 129/70 98 Mechanical Ventilator 80.00 11/07/20 16:15 98 Mechanical Ventilator 100 11/07/20 16:00 36.3 79 30 134/69 98 Mechanical Ventilator 80.00 11/07/20 15:00 36.3 80 26 133/66 98 Mechanical Ventilator 80.00 11/07/20 14:36 79 26 98 90 11/07/20 14:00 36.3 78 26 136/68 98 Mechanical Ventilator 80.00 11/07/20 13:38 80 135/72 11/07/20 13:37 80 135/72 11/07/20 13:37 80 135/72 11/07/20 13:19 91 11/07/20 13:17 80 11/07/20 13:00 36.4 81 26 141/74 98 Mechanical Ventilator 80.00 11/07/20 12:35 98 Mechanical Ventilator 100 11/07/20 12:29 85 26 142/73 11/07/20 12:00 36.5 85 26 140/72 98 Mechanical Ventilator 80.00 11/07/20 11:00 36.4 89 26 131/71 98 Mechanical Ventilator 80.00 11/07/20 10:11 69 26 92 100 I & O 11/08/20 07:00 Intake Total 1605 ml Output Total 1750 ml Balance -145 ml Height & Weight Height: '" Weight: lbs. oz. kg; 36.21 BMI Method: General Appearance: No Apparent Distress, WD/WN, Chronically ill, Other (Sedated and intubated) Respiratory: No Accessory Muscle Use, No Respiratory Distress, Crackles, Decr eased Breath Sounds Cardiovascular: Regular Rate, Rhythm Capillary Refill: Less Than 3 Seconds Peripheral Pulses: 1+ Left Dors-Pedis (L), 1+ Radial Pulses (R) Gastrointestinal: normal bowel sounds, non tender Extremity: Normal Capillary Refill Neurologic/Psychiatric: Alert, Other (anxious, fatigued) Skin: Normal Color, Warm/Dry Results Lab Laboratory Tests 11/07/20 03:10 11/08/20 03:45 Assessment/Plan Assessment/Plan (Tele-ICU Physician , Progress Note ) Available chart/ vitals / labs / Images reviewed Video assessment done using teleICU camera, rest of exam as per RN Discussed with RN , EXAM PER RN Events overnight : afebrile I/O = neg 300 Drips: Pressors: , hemodynamically stable Sedation gtt: ( RASS - 3 ) propofol 40 fent 275 , verced 7 follows commands on sedation vacation -- not follow commands 11/08 VENT SETTINGS and ABG reviewed Not candidate for SBT today Contraindications: Cardiovascular Stability / Sedation Score / FI02/PEEP / ABG / CXR Consultants: Hospital course: 10/30-transferred from OSH for change in mental status and low SpO2 in 70's, changed to hi [employer] oxygen, 40 lpm 80% 10/31 - INTUBATED - 45% fio2/rr22 peep22/tv 450 11/01 - TV 7 cc kg -= 460 11/02 - PC rr22 500 +8 15 - 24 11/03 -proned 40 % - TF was coming out upon turned to supine - Fio2 increased - ? aspiration 11/07 - 60 % - desats - > to 100% peep 24 , diuresis x1 11/08- ED with ? K , AC 26 520 +16 80% A/P AHRF / ARDS due to severe COVID19 - PRONING 11/01 - AC 26 520 +16 80% PAP 40s - rr ? 32 with acidosis - mucomist for possible mucous plugging BDOF-Xoaaagiqpxa-4/COVID-19 PNA ( Not vaccinated , Dx 10/25 ) -not given Remdesivir or Actemra -Steroids IV - started 10/30 -Hypercoagulable state , DDIMER 1.5on 10/30 -> lovenox ppx dose , D dimer 11/08 increased to 15 - consider to increase to full dose despite low PLT and risk of bleeding Suspected superimposed bact PNA -empiric abx Cefepime and Azithromycin 10/30 Cx sputum - GP Shock - levo OFF 11/01 ED - worsening 11/08 ( pos diuresis x1 on 11/07 ) - colloid resuscitatin 11/08 HyperKalemia with above - TX - follow HyperNatremia ( also given lsix today - will cont TF water flushes , might need D5W gtt Thrombocytopenia associated with COVID-19 - normalized , dropped today PLT - probably delutional - will follow closely , CONT LOVENOX FOR NOW , add HIT T2DM with ketoacidosis -now off insulin drip - levemir - ISS hyperNA tremia - IVF and TF adjusted [id number] on propofol - follow , weaning prop off Anemia - follow Lines : Scl LEFT 10/30 (Central Line Necessity Reviewed) [place]: + OG: + Nutrition: start TF 11/01 --Hold TF in prone position , cont TF supine Analgesia: Anxiety/ delirium VTE Prophylaxis: arsitides proph Stress Ulcer Prophylaxis: pepcid Glycemic Control: Plans in collaboration with bedside consultants and IM MDs. Discussed with RN to reach out if any questions or concerns A total of 40 minutes of critical care time was devoted to this patient today, required to treat and/or prevent further deterioration of critical care condition ( as above) . EMILIANO CARTER MD Nov 08, 2020 10:04
[2020-11-08 10:57] VITALS: BP 163/80
--- NOTE | 2020-11-08 11:18 | Progress Note ---
TAURUS HARRIS MED STUDENT 11/08/20 1118: Subjective Date Seen by a Provider: Nov 08, 2020 Time Seen by a Provider: 07:10 Subjective/Events-last exam Remains sedated and intubated. Vitals stable per bedside monitor. Review of Systems General: Other (unobtainable) HEENT: Other (unobtainable) Cardiovascular: Other (unobtainable) Gastrointestinal: Other (unobtainable) Genitourinary: Other (unobtainable) Musculoskeletal: other (unobtainable) Neurological: Other (unobtainable) Objective Exam Last Set of Vital Signs Vital Signs Date Time Temp Pulse Resp B/P (MAP) Pulse Ox O2 Delivery O2 Flow Rate FiO2 11/08/20 11:03 70 11/08/20 10:57 98 32 97 11/08/20 10:00 37.2 146/73 Mechanical Ventilator 80.00 Capillary Refill : Less Than 3 Seconds I&O Intake and Output 11/08/20 00:00 Intake Total 1535 ml Output Total 1900 ml Balance -365 ml Intake Oral 0 ml IV Total 1010 ml Tube Feeding 295 ml Other 230 ml Output Urine Total 1900 ml General: Other (Sedated and intubated) HEENT: Atraumatic, Other (Eyelid edema bilat unchanged. Pupils pinpoint bilat. Endotracheal tube in place. OGT in place. ) Neck: Supple, No LAD Lungs: Other (Diminished throughout) Heart: Regular Rate, No Murmurs Abdomen: Normal Bowel Sounds, Soft, Other (Obese. BS normoactive x 4 quadrants. Soft and nondistended. ) Extremities: No Clubbing, No Cyanosis, Normal Pulses, Other (Nonpitting trace edema BLE. ) Skin: No Rashes, No Significant Lesion Neuro: Other (sedated) Psych/Mental Status: Other (sedated) Results Lab Laboratory Tests 11/07/20 11:16: Glucometer 141H 11/07/20 17:31: Glucometer 177H 11/07/20 19:39: Glucometer 209H 11/07/20 22:46: Glucometer 239H 11/08/20 03:45: White Blood Count 4.3, Red Blood Count 2.72L, Hemoglobin 8.4L, Hematocrit 29L, Mean Corpuscular Volume 106H, Mean Corpuscular Hemoglobin 31, Mean Corpuscular Hemoglobin Concent 29L, Red Cell Distribution Width 14.3, Platelet Count 104L, Mean Platelet Volume 11.1, Immature Granulocyte % (Auto) 4, Neutrophils (%) (Auto) 91H, Lymphocytes (%) (Auto) 2L, Monocytes (%) (Auto) 3, Eosinophils (%) (Auto) 0, Basophils (%) (Auto) 0, Neutrophils # (Auto) 3.9, Lymphocytes # (Auto) 0.1L, Monocytes # (Auto) 0.1, Eosinophils # (Auto) 0.0, Basophils # (Auto) 0.0, Immature Granulocyte # (Auto) 0.2H, Percent Immature Platelet Fraction 6.2, D- Dimer 14.82H, Blood Gas Puncture Site LEFT RAD, Blood Gas Patient Temperature 37, Arterial Blood pH 7.15*L, Arterial Blood Partial Pressure CO2 73*H, Arterial Blood Partial Pressure O2 93, Arterial Blood HCO3 24, Arterial Blood Total CO2 26.7, Arterial Blood Oxygen Saturation 97, Arterial Blood Base Excess -3.3L, Raji Test YES-POS, Blood Gas Ventilator Setting YES, Blood Gas Inspired Oxygen 100%, Sodium Level 149H, Potassium Level 5.8H, Chloride Level 115H, Carbon Dioxide Level 22, Anion Gap 12, Blood Urea Nitrogen 74H, Creatinine 2.07H, Estimat Glomerular Filtration Rate 32, BUN/Creatinine Ratio 36, Glucose Level 182H, Calcium Level 8.1L, Corrected Calcium 9.3, Phosphorus Level 6.3H, Magnesium Level 2.8H, Total Bilirubin 0.3, Aspartate Amino Transf (AST/SGOT) 20, Alanine Aminotransferase (ALT/SGPT) 24, Alkaline Phosphatase 42, Total Protein 5.6L, Albumin 2.5L, Triglycerides Level 196H 11/08/20 11:11: Glucometer 193H Microbiology 10/30/20 Gram Stain - Final, Complete 10/30/20 Sputum Culture - Final, Complete Usual upper respiratory [place] Strep constellatus Assessment/Plan Assessment/Plan Assess & Plan/Chief Complaint Acute respiratory failure secondary to COVID-19/ARDS -mucomyst added 11-07 for possible mucous plugging -wean settings as tolerated -AC/VC TV 520 FIO2 90%. PEEP 16. RR 32 -RR increased to 32 from 26 to help with the resp acidosis COVID-19 PNA -11-07 cxray, Extensive bilateral infiltrates persist and show no real change. No effusion or pneumothorax. -decadron Suspected superimposed bacterial PNA -Cefepime and azithromycin ED -potassium up to 2.07 today from 0.98 -s/p lasix 40mg x1 dose 11-07 -albumin Hyperkalemia -K 5.8 this am -kayexalate, calcium, insulin, D50 today Hypernatremia -NA 149 -continue to monitor Thrombocytopenia associated with COVID-19 -platelets 104 -HIT assay results pending Hypercoagulable state associated with COVID-19 -d dimer 11-08 14.82 -lovenox Hypertrglyceridemia -tri's 196 on 11-08 -judicious use of propofol -continue to monitor Transaminitis -resolved, continue to monitor T2DM with ketoacidosis -resolved -SSI q6hr milana berg scheduled HTN HLD Obesity Son updated on patient condition and his poor prognosis with many questions answered by Dr. Castillo. Son states "we will continue on until next Saturday when we will have a family meeting to discuss." LILLIAM CASTILLO DO 11/09/20 0542: Subjective Subjective/Events-last exam Updated son regarding multisystem organ failure 15-minute conversation witnessed with Taurus Harris medical student Updated nurse regarding that update Poor prognosis Objective Exam General: Other (Sedated and intubated) Lungs: Other (Diminished throughout) Heart: Regular Rate Assessment/Plan Assessment/Plan Assess & Plan/Chief Complaint Poor prognosis Hyperkalemia from acute kidney failure will likely cause cardiac arrhythmia and Unable to realistically keep him on the ventilator and alive until next Saturday Supervisory-Addendum Brief Verification & Attestation Participated in pt care: history, MDM, physical Personally performed: exam, history, MDM, supervision of care Care discussed with: Medical Student Procedures: n/a Results interpretation: Verified all documentation Verification and Attestation of Medical Student E/M Service A medical student performed and documented this service in my presence. I reviewed and verified all information documented by the medical student and made modifications to such information, when appropriate. I personally performed the physical exam and medical decision making. Lilliam Castillo Nov 09, 2020,05:41 TAURUS HARRIS MED STUDENT Nov 08, 2020 11:18 LILLIAM CASTILLO DO Nov 09, 2020 05:42
[2020-11-08 11:59] LABS: CALCIUM 8.4 MG/DL (8.5-10.1); CREATININE SERUM 2.43 MG/DL (0.60-1.30); POTASSIUM 5.3 MMOL/L (3.6-5.0)
[2020-11-08] MEDS ORDERED: SOD POLYSTERENE 15 GM/60 ML (KAYEXALATE) UNIT DOSE PO NR (12:30)
[2020-11-08] MEDS ORDERED: inSUlin (REGULAR) HUMAN 1 UNIT/0.01 ML (CHARGE PER UNIT) IV NR ×2 (12:30→18:15)
[2020-11-08] MEDS ORDERED: DEXTROSE 50% 50 ML (IMS) SYR IV NR (12:30)
[2020-11-08] MEDS: D5 LR IV SOLUTION 1,000 ML IV SCH ×4 (12:48→16:15)
[2020-11-08 14:29] VITALS: BP 173/86
[2020-11-08] MEDS: NOREPINEPHRINE 8 MG/250 ML 250 ML IV SCH (15:03)
[2020-11-08] MEDS: ENOXAPARIN 40 MG/0.4 ML (LOVENOX) SYR SC SCH (17:21)
[2020-11-08 17:40] LABS: POTASSIUM 5.2 MMOL/L (3.6-5.0)
[2020-11-08 17:41] LABS: CALCIUM 8.1 MG/DL (8.5-10.1)
[2020-11-08 17:45] LABS: CREATININE SERUM 2.63 MG/DL (0.60-1.30)
--- NOTE | 2020-11-08 18:12 | Tele-ICU Progress Note ---
Progress Note patient with worsenign ED despite fluid resuscitation still has decent UP - 800ml since this am recurrent Tx of hyperkalemia as per RN - family was updated by admitting MD Focused Exam Height, Weight, BMI Height: '" Weight: lbs. oz. kg; 36.21 BMI Method: EMILIANO CARTER MD Nov 08, 2020 18:12
[2020-11-08] MEDS ORDERED: SODIUM BICARB 8.4% 50 MEQ/50 ML (ABBOTT) SYR ONE (18:15)
[2020-11-08] MEDS ORDERED: SODIUM BICARB 8.4% 50 MEQ/50 ML (ABBOTT) SYR IV NR (18:15)
[2020-11-08 18:39] VITALS: BP 162/85
[2020-11-08] MEDS: ALBUMIN 25% 25 GM/100 ML 50 ML IV SCH ×2 (19:42→23:25)
[2020-11-08 22:15] VITALS: BP 162/85
[2020-11-09 00:02] LABS: CALCIUM 8.1 MG/DL (8.5-10.1)
[2020-11-09 00:06] LABS: CREATININE SERUM 2.77 MG/DL (0.60-1.30)
[2020-11-09 02:40] LABS: ABG BASE EXCESS -3.6 MMOL/L (-2.5-2.5); ABG OXYGEN SATURATION 99 % (94-100); ABG PCO2 54 MMHG (35-45); ABG PO2 139 MMHG (79-93); ABG TCO2 24.2 MMOL/L (21.0-31.0)
[2020-11-09 02:41] LABS: INSPIRED O2 90%
[2020-11-09 02:42] LABS: PATIENT TEMP 37.2; VENTILATOR YES
[2020-11-09 02:43] LABS: ABG PH 7.25 (7.37-7.43)
[2020-11-09 02:44] LABS: ALLENS TEST YES-POS
[2020-11-09 02:47] LABS: BASOPHILS % (AUTO) 0 % (0-10); MEAN CORPUSCULAR VOLUME 103 fL (80-99)
[2020-11-09 02:49] LABS: EOSINOPHILS % (AUTO) 0 % (0-10); HEMATOCRIT 23 % (40-54); LYMPHOCYTES # (AUTO) 0.1 10^3/uL (1.0-4.0); LYMPHOCYTES % (AUTO) 3 % (12-44); MEAN CORPUSCULAR HEMOGLOBIN 31 pg (25-34); MEAN CORPUSCULAR HGB CONC 30 g/dL (32-36); MEAN PLATELET VOLUME 11.1 fL (9.0-12.2); MONOCYTES # (AUTO) 0.1 10^3/uL (0.0-1.0); MONOCYTES % (AUTO) 2 % (0-12); NEUTROPHILS # (AUTO) 4.2 10^3/uL (1.8-7.8); NEUTROPHILS % (AUTO) 92 % (42-75); PLATELET COUNT 98 10^3/uL (130-400); WHITE BLOOD COUNT 4.5 10^3/uL (4.3-11.0)
[2020-11-09] MEDS: RT-ALBUTEROL/IPRATROPIUM 3 ML (DUONEB) VIAL INH SCH ×3 (02:55→10:32)
[2020-11-09 02:56] VITALS: BP 162/85
[2020-11-09] MEDS: aCETylcysteine 20% (MUCOMYST) 30ML SOLN VIAL INH SCH ×2 (02:56→07:27)
[2020-11-09 02:57] LABS: POTASSIUM 4.9 MMOL/L (3.6-5.0)
[2020-11-09 03:02] LABS: CREATININE SERUM 2.79 MG/DL (0.60-1.30)
[2020-11-09 03:16] LABS: BAND NEUTROPHILS 2 %; LYMPHOCYTES % (MANUAL) 8 %; MONOCYTES % (MANUAL) 4 %; NEUTROPHILS % (MANUAL) 86 %
[2020-11-09 03:17] LABS: MICROCYTOSIS SLIGHT
[2020-11-09] MEDS: NOREPINEPHRINE 8 MG/250 ML 250 ML IV SCH (03:23)
[2020-11-09] MEDS: ALBUMIN 25% 25 GM/100 ML 50 ML IV SCH (03:54)
[2020-11-09] MEDS: fentaNYL DRIP PRE-MIX 250 ML IV SCH ×2 (04:33→09:38)
[2020-11-09] MEDS: inSUlin ASPART (NovoLOG) 1 UNIT/0.01 ML (CHARGE PER UNIT) SC SCH ×2 (04:33→12:25)
[2020-11-09] MEDS: CEFEPIME INJECTION 1,000 MG in WATER (STERILE) FOR INJECTION 10 ML IV SCH (04:33)
[2020-11-09] MEDS: PROPOFOL DRIP (ICU) 100 ML IV SCH ×3 (04:34→07:35)
[2020-11-09] MEDS: POTASSIUM CL 10MEQ/50ML IVPB 50 ML IV SCH (06:29)
[2020-11-09] MEDS: MAGNESIUM 1 GM/100 ML IVPB 100 ML IV SCH (06:29)
[2020-11-09 07:12] LABS: PHOSPHORUS 4.8 MG/DL (2.3-4.7)
[2020-11-09 07:14] LABS: MAGNESIUM 2.7 MG/DL (1.6-2.4)
[2020-11-09 07:27] VITALS: BP 136/77
--- NOTE | 2020-11-09 07:37 | Progress Note ---
TAURUS PETERS MED STUDENT 11/09/20 0737: Subjective Date Seen by a Provider: Nov 09, 2020 Time Seen by a Provider: 07:00 Subjective/Events-last exam Remains sedated and intubated. Stable overnight per HOUSING QUALITY STANDARD INSPECTOR. Hospital Course: Diego Perry is a 70 year old male with PMH of HTN, T2DM, HLD, and obesity, who was transferred from and OSH due to a change in mental status and hypoxia. He reported feeling sick for several weeks with increasing SOB. He was admitted with acute hypoxic respiratory failure/ARDS due to COVID-19 and COVID-19 PNA. He was initially diagnosed with COVID-19 on 10/25. He was covid unvaccinated. In the ED he received remdesivir, decadron, and azithromycin. He was placed on BIPAP but due to increased work of breathing and hypoxia was intubated on 10/31. Levophed and an insulin gtt were started on 10/30 due to persistent hypotension and hyperglycemia with ketoacidosis. During his admission he developed hyperkalemia, hypernatremia, ED, Transaminitis, thrombocytopenia, and hypercoagulable state associated with COVID-19. On 10/30 his d dimer was 1.5 so lovenox was started. Empiric antibiotic coverage began on 10/30 with cefepime and azithromycin. General surgery was consulted 10/30 for placement of a left subclavian cvc due to poor venous access. On 11/02 the shock had begun improving and levophed had been weaned off. While being proned on 11/03 the nurses noted TF coming out of his mouth and suctioned from ETT, possible aspiration. The patient was subsequently started on reglan. The patient continued to be stable and alternated between supine positioning and being pr oned. On 11/07 the patient desaturated into the 60's during repositioning. He was given 40mg lasix IVP, chest x ray, mucomyst for possible mucous plugging, and PEEP was increased to 24 and FIO2 to 100%. Also, on 11/07 he became thrombocytopenic and a HIT antibody assay was ordered. The HIT antibody resulted negative. On the patient developed an ED with hyperkalemia. On 11/08 his d dimer increased to 14.8. Lovenox was continued. He was given an amp of D50, Insulin IVP, kayexalate, sodium bicarb, and calcium. The patient was resuscitated with albumin as well and maintained good urine output. 11/09 with worsening renal function and creatinine bumped to 2.79, still making urine. After discussion yesterday between family and Dr. Castillo family has decided to terminally extubate patient today around 1300. Review of Systems General: Other (unobtainable) Pulmonary: Other (unobtainable) Cardiovascular: Other (unobtainable) Gastrointestinal: Other (unobtainable) Genitourinary: Other (unobtainable) Musculoskeletal: other (unobtainable) Neurological: Other (unobtainable) Objective Exam Last Set of Vital Signs Vital Signs Date Time Temp Pulse Resp B/P (MAP) Pulse Ox O2 Delivery O2 Flow Rate FiO2 11/09/20 06:16 36.9 84 32 135/75 91 Mechanical Ventilator 90.00 11/09/20 04:00 90 Capillary Refill : Less Than 3 Seconds I&O Intake and Output 11/08/20 23:59 Intake Total 3600 ml Output Total 1600 ml Balance 2000 ml Intake Oral 60 ml IV Total 2870 ml Tube Feeding 400 ml Other 270 ml Output Urine Total 1600 ml General: Other (Sedated and intubated critically ill appearing) HEENT: Atraumatic, Other (Bilat eye lids swollen. Endotracheal tube in place. OGT in place. ) Neck: Supple, No LAD Lungs: Clear to Auscultation (Diminished bibasilar R>L) Heart: Regular Rate, No Murmurs, Other (Cap refill <3seconds bilat hands. Radial and dorsalis pedis pulses +2/4 bilat. Nonpitting edema Bilat feet and hands present. ) Abdomen: Normal Bowel Sounds, Soft, Other (Obese) Extremities: No Clubbing, No Cyanosis, Normal Pulses Skin: No Significant Lesion Neuro: Other (sedated) Psych/Mental Status: Other (sedated) Other physical findings L subclavian CVC [place] Results Lab Laboratory Tests 11/08/20 11:11: Glucometer 193H 11/08/20 11:30: Sodium Level 150H, Potassium Level 5.3H, Chloride Level 116H, Carbon Dioxide Level 22, Anion Gap 12, Blood Urea Nitrogen 84H, Creatinine 2.43H, Estimat Glomerular Filtration Rate 27, BUN/Creatinine Ratio 35, Glucose Level 203H, Calcium Level 8.4L 11/08/20 17:19: Glucometer 361H 11/08/20 17:25: Sodium Level 146H, Potassium Level 5.2H, Chloride Level 114H, Carbon Dioxide Level 20L, Anion Gap 12, Blood Urea Nitrogen 83H, Creatinine 2.63H, Estimat Glomerular Filtration Rate 24, BUN/Creatinine Ratio 32, Glucose Level 380H, Calcium Level 8.1L 11/08/20 19:35: Glucometer 337H 11/08/20 23:20: Glucometer 267H 11/08/20 23:30: Sodium Level 148H, Potassium Level 5.0, Chloride Level 116H, Carbon Dioxide Level 21, Anion Gap 11, Blood Urea Nitrogen 86H, Creatinine 2.77H, Estimat Glomerular Filtration Rate 23, BUN/Creatinine Ratio 31, Glucose Level 286H, Calcium Level 8.1L 11/09/20 02:28: Blood Gas Puncture Site LEFT RAD, Blood Gas Patient Temperature 37.2, Arterial Blood pH 7.25*L, Arterial Blood Partial Pressure CO2 54H, Arterial Blood Partial Pressure O2 139H, Arterial Blood HCO3 23, Arterial Blood Total CO2 24.2, Arterial Blood Oxygen Saturation 99, Arterial Blood Base Excess -3.6L, Raji Test YES-POS, Blood Gas Ventilator Setting YES, Blood Gas Inspired Oxygen 90% 11/09/20 02:40: White Blood Count 4.5, Red Blood Count 2.26L, Hemoglobin 7.0L, Hematocrit 23L, Mean Corpuscular Volume 103H, Mean Corpuscular Hemoglobin 31, Mean Corpuscular Hemoglobin Concent 30L, Red Cell Distribution Width 14.4, Platelet Count 98L, Mean Platelet Volume 11.1, Immature Granulocyte % (Auto) 2, Neutrophils (%) (Auto) 92H, Lymphocytes (%) (Auto) 3L, Monocytes (%) (Auto) 2, Eosinophils (%) (Auto) 0, Basophils (%) (Auto) 0, Neutrophils # (Auto) 4.2, Lymphocytes # (Auto) 0.1L, Monocytes # (Auto) 0.1, Eosinophils # (Auto) 0.0, Basophils # (Auto) 0.0, Immature Granulocyte # (Auto) 0.1, Neutrophils % (Manual) 86, Lymphocytes % (Manual) 8, Monocytes % (Manual) 4, Band Neutrophils 2, Percent Immature Platele t Fraction 6.4, Basophilic Stippling SLIGHT, Microcytosis SLIGHT, Macrocytosis SLIGHT, Sodium Level 149H, Potassium Level 4.9, Chloride Level 116H, Carbon Dioxide Level 21, Anion Gap 12, Blood Urea Nitrogen 87H, Creatinine 2.79H, Estimat Glomerular Filtration Rate 23, BUN/Creatinine Ratio 31, Glucose Level 207H, Calcium Level 8.0L 11/09/20 02:48: Phosphorus Level 4.8H, Magnesium Level 2.7H Microbiology 10/30/20 Gram Stain - Final, Complete 10/30/20 Sputum Culture - Final, Complete Usual upper respiratory [place] Strep constellatus Assessment/Plan Assessment/Plan Assess & Plan/Chief Complaint Acute respiratory failure secondary to COVID-19/ARDS -mucomyst added 11-07 for possible mucous plugging -wean settings as tolerated -AC/VC TV 520 FIO2 90%. PEEP 16. RR 32 -ABG a bit better today COVID-19 PNA -11-07 cxray, Extensive bilateral infiltrates persist and show no real change. No effusion or pneumothorax. -decadron Suspected superimposed bacterial PNA -Cefepime and azithromycin Anemia -hgb 7 today, trending down -continue to monitor ED -creatinine up to 2.79, trending up -s/p lasix 40mg x1 dose 11-07 -albumin 11-08 Hyperkalemia -resolved, continue to monitor -K 4.9 today -kayexalate, calcium, insulin, D50 11-08 Hypernatremia -NA 149 -continue to monitor Thrombocytopenia associated with COVID-19 -platelets 98 -HIT antibody assay negative Hypercoagulable state associated with COVID-19 -d dimer 11-08 14.82 -lovenox Hypertrglyceridemia -tri's 196 on 11-08 -judicious use of propofol -continue to monitor Transaminitis -resolved, continue to monitor T2DM with ketoacidosis -resolved -SSI q6hr accuchecks, levjordyir scheduled HTN HLD Obesity Family plans to terminally extubate patient around 1300 today. LILLIAM CASTILLO DO 11/10/20 0521: Objective Exam General: Other (Sedated and intubated critically ill appearing) Lungs: Other Heart: Regular Rate Assessment/Plan Assessment/Plan Assess & Plan/Chief Complaint Terminal extubation Supervisory-Addendum Brief Verification & Attestation Participated in pt care: history, MDM, physical Personally performed: exam, history, MDM, supervision of care Care discussed with: Medical Student Procedures: n/a Results interpretation: Verified all documentation Verification and Attestation of Medical Student E/M Service A medical student performed and documented this service in my presence. I reviewed and verified all information documented by the medical student and made modifications to such information, when appropriate. I personally performed the physical exam and medical decision making. Lilliam Castillo, Nov 10, 2020,05:21 TAURUS PETERS MED STUDENT Nov 09, 2020 07:37 LILLIAM CASTILLO DO Nov 10, 2020 05:21
[2020-11-09] MEDS: PANTOPRAZOLE 40 MG (PROTONIX) VIAL IV SCH (08:48)
[2020-11-09] MEDS: LACRI-LUBE OPTHALMIC OINT 3.5 GM TUBE OU SCH (08:49)
[2020-11-09] MEDS: AZITHROMYCIN INJECTION 250 MG in NS (IVPB) 250 ML IV SCH (08:49)
--- NOTE | 2020-11-09 10:24 | Tele-ICU Progress Note ---
Subjective Date Seen by a Provider: Nov 09, 2020 Time Seen by a Provider: 09:13 Sepsis Event Evaluation Height, Weight, BMI Height: '" Weight: lbs. oz. kg; 36.21 BMI Method: Exam Exam Patient acknowledged, consented, and participated in this virtual visit which was conducted using real time audio/video Vital Signs Date Time Temp Pulse Resp B/P (MAP) Pulse Ox O2 Delivery O2 Flow Rate FiO2 11/09/20 09:00 37.1 91 66 137/75 92 Mechanical Ventilator 90.00 11/09/20 08:00 37.1 94 32 131/75 90 Mechanical Ventilator 90.00 11/09/20 08:00 93 90 11/09/20 07:35 82 136/77 11/09/20 07:34 82 136/77 11/09/20 07:27 82 32 92 90 11/09/20 07:00 37.0 82 32 136/76 92 Mechanical Ventilator 90.00 11/09/20 06:56 83 11/09/20 06:16 36.9 84 32 135/75 91 Mechanical Ventilator 90.00 11/09/20 06:00 36.9 85 32 95 Mechanical Ventilator 90.00 11/09/20 05:00 36.8 87 32 94 Mechanical Ventilator 90.00 11/09/20 04:38 36.8 86 32 144/79 94 Mechanical Ventilator 90.00 11/09/20 04:34 86 11/09/20 04:34 86 11/09/20 04:00 93 Mechanical Ventilator 90 11/09/20 04:00 36.7 75 32 94 Mechanical Ventilator 90.00 11/09/20 03:56 36.6 75 32 137/78 95 Mechanical Ventilator 90.00 11/09/20 03:23 76 11/09/20 03:00 36.9 76 32 94 Mechanical Ventilator 90.00 11/09/20 02:56 97 32 92 100 11/09/20 02:00 37.2 83 32 151/74 96 Mechanical Ventilator 90.00 11/09/20 01:00 87 11/09/20 01:00 37.3 87 32 149/74 96 Mechanical Ventilator 90.00 11/09/20 00:00 37.4 89 32 150/74 95 Mechanical Ventilator 90.00 11/08/20 23:52 95 Mechanical Ventilator 90 11/08/20 23:40 90 11/08/20 23:13 90 11/08/20 23:00 37.4 90 32 145/74 95 Mechanical Ventilator 90.00 11/08/20 22:15 97 32 92 90 11/08/20 22:00 37.3 90 32 140/76 94 Mechanical Ventilator 90.00 11/08/20 21:05 37.2 93 32 97 Mechanical Ventilator 90.00 11/08/20 21:02 93 11/08/20 21:00 37.2 93 32 143/74 96 Mechanical Ventilator 100.00 11/08/20 20:00 37.0 96 32 154/79 93 Mechanical Ventilator 100.00 11/08/20 20:00 95 Mechanical Ventilator 100 11/08/20 19:00 97 11/08/20 19:00 36.6 97 32 160/82 98 Mechanical Ventilator 100.00 11/08/20 18:39 97 32 98 100 11/08/20 18:00 36.3 98 32 161/84 96 Mechanical Ventilator 60.00 11/08/20 17:30 101 153/82 11/08/20 17:30 101 153/82 11/08/20 17:00 36.3 98 32 160/86 91 Mechanical Ventilator 60.00 11/08/20 16:13 92 Mechanical Ventilator 70 11/08/20 16:00 36.5 101 32 153/82 91 Mechanical Ventilator 60.00 11/08/20 15:30 Mechanical Ventilator 60.00 11/08/20 15:00 36.7 106 32 153/87 91 Mechanical Ventilator 80.00 11/08/20 14:32 60 11/08/20 14:29 93 32 96 70 11/08/20 14:00 36.7 96 32 174/90 96 Mechanical Ventilator 80.00 11/08/20 13:00 36.4 96 32 181/91 98 Mechanical Ventilator 80.00 11/08/20 13:00 96 11/08/20 12:55 97 167/83 11/08/20 12:55 97 167/83 11/08/20 12:15 97 Mechanical Ventilator 70 11/08/20 12:00 37.2 97 32 167/83 97 Mechanical Ventilator 80.00 11/08/20 11:03 70 11/08/20 11:00 37.5 98 32 163/80 98 Mechanical Ventilator 80.00 11/08/20 10:57 98 32 97 80 I & O 9/15/21 07:00 Intake Total 3350 ml Output Total 1650 ml Balance 1700 ml Height & Weight Height: '" Weight: lbs. oz. kg; 36.21 BMI Method: General Appearance: No Apparent Distress, WD/WN, Chronically ill, Other (Sedated and intubated) Respiratory: No Accessory Muscle Use, No Respiratory Distress, Crackles, Decreased Breath Sounds Cardiovascular: Regular Rate, Rhythm Capillary Refill: Less Than 3 Seconds Peripheral Pulses: 1+ Left Dors-Pedis (L), 1+ Radial Pulses (R) Gastrointestinal: normal bowel sounds, non tender Extremity: Normal Capillary Refill Neurologic/Psychiatric: Alert, Other (anxious, fatigued) Skin: Normal Color, Warm/Dry Results Lab Laboratory Tests 11/08/20 03:45 11/08/20 11:30 11/08/20 17:25 11/08/20 23:30 11/09/20 02:40 Assessment/Plan Assessment/Plan (Tele-ICU Physician , Progress Note ) Available chart/ vitals / labs / Images reviewed Video assessment done using teleICU camera, rest of exam as per RN Discussed with RN , EXAM PER RN Events overnight : increased fio2 ans wrsenign ED afebrile I/O = pos 2.5 L Drips: Pressors: , hemodynamically stable Sedation gtt: ( RASS - 3 ) propofol 40 fent 275 , verced 7 follows commands on sedation vacation -- not follow commands 11/08 or VENT SETTINGS and ABG reviewed Not candidate for SBT today Contraindications: Cardiovascular Stability / Sedation Score / FI02/PEEP / ABG / CXR Consultants: Hospital course: 10/30-transferred from OSH for change in mental status and low SpO2 in 70's, changed to fl rebeca oxygen, 40 lpm 80% 10/31 - INTUBATED - 45% fio2/rr22 peep22/tv 450 11/01 - TV 7 cc kg -= 460 11/02 - PC rr22 500 +8 15 - 24 11/03 -proned 40 % - TF was coming out upon turned to supine - Fio2 increased - ? aspiration 11/07 - 60 % - desats - > to 100% peep 24 , diuresis x1 11/08- ED with ? K , AC 26 520 +16 80% => + 3L fluid resuscitation 11/09 - ED worse , but makes urine A/P AHRF / ARDS due to severe COVID19 - PRONING 11/01 - AC 32 520 +16 80% PAP 40s - mucomist for possible mucous plugging [id number]-9/COVID-19 PNA ( Not vaccinated , Dx 10/25 ) -not given Remdesivir or Actemra -Steroids IV - started 10/30 - stat ttapering 11/10 -Hypercoagulable state , DDIMER 1.5on 10/30 -> lovenox ppx dose , D dimer 11/08 increased to 15 - consider to increase to full dose despite low PLT and risk of bleeding , but with worsenign ED / thrombocytopenia and Hb 7 - WILL CONT PRPH DOSE NOW Suspected superimposed bact PNA -empiric abx Cefepime and Azithromycin 10/30- FINISH COURSE Cx sputum - GP Shock - levo OFF 11/01 ED - worsening 11/08 ( pos diuresis x1 on 11/07 ) - colloid resuscitatin 11/08 HyperKalemia with above - TX - follow HyperNatremia Thrombocytopenia associated with COVID-19 - normalized , dropped today PLT - probably delutional - , CONT LOVENOX FOR NOW , neg HIT T2DM with ketoacidosis -now off insulin drip - levemir - ISS hyperNA tremia - IVF and TF adjusted [id number] on propofol - follow , weaning prop off Anemia - follow Lines : Scl LEFT 10/30 (Central Line Necessity Reviewed) [place]: + OG: + Nutrition: start TF 11/01 --Hold TF in prone position , cont TF supine Analgesia: Anxiety/ delirium VTE Prophylaxis: aristides proph Stress Ulcer Prophylaxis: pepcid Glycemic Control: Plans in collaboration with bedside consultants and IM MDs. Discussed with RN to reach out if any questions or concerns A total of 40 minutes of critical care time was devoted to this patient today, required to treat and/or prevent further deterioration of critical care condition ( as above) . EMILIANO CARTER MD Nov 09, 2020 10:24
[2020-11-09 10:32] VITALS: BP 139/78
[2020-11-09] MEDS ORDERED: GLYCOPYRROLATE 0.2 MG/ML (ROBINUL) 2 ML VIAL IV PRN ×18 (10:45)
[2020-11-09] MEDS ORDERED: SALIVA STIMULANT MOUTH SPRAY (BIOTENE) 1.5 OZ MM PRN ×18 (10:45)
[2020-11-09] MEDS ORDERED: ACETAMINOPHEN 650 MG SUPP (TYLENOL) PR PRN ×18 (10:45)
[2020-11-09] MEDS ORDERED: ARTIFICAL TEARS 0.4 ML UNIT DOSE (REFRESH PLUS) OU PRN ×18 (10:45)
[2020-11-09] MEDS ORDERED: BISACODYL 10 MG SUPP (DULCOLAX) PR PRN ×18 (10:45)
[2020-11-09] MEDS ORDERED: morphine INJ 10 MG/ML 1ML (SYR OR VIAL) IVP PRN ×18 (10:45)
[2020-11-09] MEDS ORDERED: RT-ALBUTEROL/IPRATROPIUM 3 ML (DUONEB) VIAL INH PRN ×18 (10:45)
[2020-11-09] MEDS ORDERED: ONDANSETRON 4 MG/2 ML (SDV) Z0FRAN IVP PRN ×18 (10:45)
[2020-11-09] MEDS ORDERED: LORazepam INJ 2 MG/ML (ATIVAN) VIAL IVP PRN ×18 (10:45)
[2020-11-09] MEDS ORDERED: METOCLOPRAMIDE INJ 10 MG/2 ML (REGLAN) IVP SCH (12:00)
[2020-11-09] MEDS ORDERED: PROPOFOL DRIP (ICU) 100 ML IV SCH (13:00)
[2020-11-09] MEDS ORDERED: fentaNYL DRIP PRE-MIX 250 ML IV SCH (13:00)
[2020-11-09] MEDS ORDERED: MIDAZOLAM DRIP PRE-MIX 100 ML IV SCH (13:00)
[2020-11-09 13:02] VITALS: BP 145/80
[2020-11-09] MEDS: MIDAZOLAM DRIP PRE-MIX 100 ML IV SCH (13:02)
--- NOTE | 2020-11-09 17:08 | Discharge Summary ---
Diagnosis/Chief Complaint Date of Admission Oct 30, 2020 at 04:17 Date of Discharge Nov 09, 2020 at 14:25 Discharge Diagnosis COVID-19 Multisystem organ failure Discharge Summary Discharge Physical Examination Allergies: Coded Allergies: shellfish derived (Verified Allergy, Unknown, 10/30/20) PT REPORTS ALLERGY, UNKNOWN SEVERITY Vitals & I&Os Vital Signs Date Time Temp Pulse Resp B/P (MAP) Pulse Ox O2 Delivery O2 Flow Rate FiO2 11/09/20 14:00 37.4 87 32 142/80 97 Mechanical Ventilator 90.00 11/09/20 10:32 90 Hospital Course Was the Problem List Reviewed?: Yes COVID-19 and COVID-19 PNA. He was initially diagnosed with COVID-19 on 10/25. He was covid unvaccinated. In the ED he received remdesivir, decadron, and azithromycin. He was placed on BIPAP but due to increased work of breathing and hypoxia was intubated on 10/31. Levophed and an insulin gtt were started on 10/30 due to persistent hypotension and hyperglycemia with ketoacidosis. During his admission he developed hyperkalemia, hypernatremia, ED, Transaminitis, thrombocytopenia, and hypercoagulable state associated with COVID-19. On 10/30 his d dimer was 1.5 so lovenox was started. Empiric antibiotic coverage began on 10/30 with cefepime and azithromycin. General surgery was consulted 10/30 for placement of a left subclavian cvc due to poor venous access. On 11/02 the shock had begun improving and levophed had been weaned off. While being proned on 11/03 the nurses noted TF coming out of his mouth and suctioned from ETT, possible aspiration. The patient was subsequently started on reglan. The patient continued to be stable and alternated between supine positioning and being proned. On 11/07 the patient desaturated into the 60's during repositioning. He was given 40mg lasix IVP, chest x ray, mucomyst for possible mucous plugging, and PEEP was increased to 24 and FIO2 to 100%. Also, on 11/07 he became thrombocytopenic and a HIT antibody assay was ordered. The HIT antibody resulted negative. On the patient developed an ED with hyperkalemia. On 11/08 his d dimer increased to 14.8. Lovenox was continued. He was given an amp of D50, Insulin IVP, kayexalate, sodium bicarb, and calcium. The patient was resuscitated with albumin as well and maintained good urine output. 11/09 with worsening renal function and creatinine bumped to 2.79, still making urine. After discussion yesterday between family and Dr. Melgar family has decided to terminally extubate patient today around 1300. Discharge summary performed by Edward [facility] (last 24 hrs) Laboratory Tests 10/30/20 04:17: Lab Scanned Report Referred Lab Report 10/30/20 05:40: White Blood Count 2.7L, Red Blood Count 4.27L, Hemoglobin 13.6, Hematocrit 39L, Mean Corpuscular Volume 92, Mean Corpuscular Hemoglobin 32, Mean Corpuscular Hemoglobin Concent 35, Red Cell Distribution Width 13.9, Platelet Count 63L, Mean Platelet Volume 12.1, Immature Granulocyte % (Auto) 0, Neutrophils (%) (Auto) 80H, Lymphocytes (%) (Auto) 15, Monocytes (%) (Auto) 4, Eosinophils (%) (Auto) 0, Basophils (%) (Auto) 0, Neutrophils # (Auto) 2.1, Lymphocytes # (Auto) 0.4L, Monocytes # (Auto) 0.1, Eosinophils # (Auto) 0.0, Basophils # (Auto) 0.0, Immature Granulocyte # (Auto) 0.0, Sodium Level 128L, Potassium Level 6.0H, Chloride Level 100, Carbon Dioxide Level 13L, Anion Gap 15H, Blood Urea Nitrogen 60H, Creatinine 1.84H, Estimat Glomerular Filtration Rate 37, BUN/Creatinine Ratio 33, Glucose Level 537*H, Calcium Level 7.9L, Corrected Calcium 8.4L, Phosphorus Level 4.6, Magnesium Level 2.5H, Total Bilirubin 0.8, Aspartate Amino Transf (AST/SGOT) 92H, Alanine Aminotransferase (ALT/SGPT) 57H, Alkaline Phosphatase 43, Total Protein 7.1, Albumin 3.4 10/30/20 07:32: Blood Gas Puncture Site R RAD, Blood Gas Patient Temperature 37, Arterial Blood pH 7.32*L, Arterial Blood Partial Pressure CO2 36, Arterial Blood Partial Pressure O2 69L, Arterial Blood HCO3 18L, Arterial Blood Total CO2 19.3L, Arterial Blood Oxygen Saturation 91L, Arterial Blood Base Excess -6.7L, Raji Test YES-POS, Blood Gas Ventilator Setting NO, Blood Gas Inspired Oxygen 80% 10/30/20 09:16: Sodium Level 133L, Potassium Level 4.7, Chloride Level 102, Carbon Dioxide Level 14L, Anion Gap 17H, Blood Urea Nitrogen 62H, Creatinine 1.77H, Estimat Glome rular Filtration Rate 38, BUN/Creatinine Ratio 35, Glucose Level 554*H, Calcium Level 8.3L, D-Dimer 1.50H, Beta-Hydroxybutyrate (Chem panel) 0.70H, Procalcitonin 0.70H 10/30/20 10:40: Glucometer 473*H 10/30/20 11:00: Triglycerides Level 91 10/30/20 13:00: Glucometer 414*H 10/30/20 13:30: Urine Color YELLOW, Urine Clarity SL CLOUDY, Urine pH 5.0, Urine Specific Mayer >=1.030, Urine Protein TRACEH, Urine Glucose (UA) 2+H, Urine Ketones NEGATIVE, Urine Nitrite NEGATIVE, Urine Bilirubin NEGATIVE, Urine Urobilinogen 0.2, Urine Leukocyte Esterase NEGATIVE, Urine RBC (Auto) TRACE-I, Urine RBC RARE, Urine WBC NONE, Urine Squamous Epithelial Cells NONE, Urine Crystals NONE, Urine Bacteria NEGATIVE, Urine Casts PRESENT, Urine Granular Casts 5-10H, Urine Mucus NEGATIVE, Urine Culture Indicated NO, Blood Gas Puncture Site L RAD, Blood Gas Patient Temperature 35.4, Arterial Blood pH 7.28*L, Arterial Blood Partial Pressure CO2 37, Arterial Blood Partial Pressure O2 103H, Arterial Blood HCO3 17*L, Arterial Blood Total CO2 18.2L, Arterial Blood Oxygen Saturation 98, Arterial Blood Base Excess -8.8L, Raji Test YES-POS, Blood Gas Ventilator Setting YES, Blood Gas Inspired Oxygen 80% 10/30/20 14:04: Glucometer 442*H 10/30/20 15:15: Glucometer 375H 10/30/20 16:27: Glucometer 363H 10/30/20 17:07: Sodium Level 138, Potassium Level 3.9, Chloride Level 107, Carbon Dioxide Level 16L, Anion Gap 15H, Blood Urea Nitrogen 72H, Creatinine 1.87H, Estimat Glomerular Filtration Rate 36, BUN/Creatinine Ratio 39, Glucose Level 376H, Calcium Level 7.6L 10/30/20 17:33: Glucometer 352H 10/30/20 18:28: Glucometer 329H 10/30/20 19:54: Glucometer 281H 10/30/20 20:57: Glucometer 239H 10/30/20 22:10: Glucometer 214H 10/30/20 22:51: Glucometer 194H 10/31/20 00:00: Glucometer 197H 10/31/20 00:59: Glucometer 183H 10/31/20 01:58: Glucometer 155H 10/31/20 03:07: Glucometer 148H 10/31/20 03:10: White Blood Count 3.9L, Red Blood Count 3.53L, Hemoglobin 11.2L, Hematocrit 34L, Mean Corpuscular Volume 96, Mean Corpuscular Hemoglobin 32, Mean Corpuscular Hemoglobin Concent 33, Red Cell Distribution Width 14.0, Platelet Count 88L, Mean Platelet Volume 11.8, Immature Granulocyte % (Auto) 0, Neutrophils (%) (Auto) 89H, Lymphocytes (%) (Auto) 7L, Monocytes (%) (Auto) 4, Eosinophils (%) (Auto) 0, Basophils (%) (Auto) 0, Neutrophils # (Auto) 3.4, Lymphocytes # (Auto) 0.3L, Monocytes # (Auto) 0.1, Eosinophils # (Auto) 0.0, Basophils # (Auto) 0.0, Immature Granulocyte # (Auto) 0.0, Neutrophils % (Manual) 84, Lymphocytes % (Manual) 8, Monocytes % (Manual) 3, Band Neutrophils 5, Percent Immature Platelet Fraction 7.1, Blood Morphology Comment NORMAL, Blood Gas Puncture Site RIGHT RADIAL, Blood Gas Patient Temperature 36.8, Arterial Blood pH 7.30*L, Arterial Blood Partial Pressure CO2 47H, Arterial Blood Partial Pressure O2 117H , Arterial Blood HCO3 22L, Arterial Blood Total CO2 23.6, Arterial Blood Oxygen Saturation 95, Arterial Blood Base Excess -3.3L, Raji Test YES-POS, Blood Gas Ventilator Setting YES, Blood Gas Inspired Oxygen 55%, Sodium Level 144, Potassium Level 3.2L, Chloride Level 114H, Carbon Dioxide Level 15L, Anion Gap 15H, Blood Urea Nitrogen 71H, Creatinine 1.81H, Estimat Glomerular Filtration Rate 37, BUN/Creatinine Ratio 39, Glucose Level 150H, Calcium Level 7.1L, Corrected Calcium 7.9L, Phosphorus Level 2.7, Magnesium Level 2.5H, Total B ilirubin 0.4, Aspartate Amino Transf (AST/SGOT) 59H, Alanine Aminotransferase (ALT/SGPT) 45, Alkaline Phosphatase 42, Total Protein 5.6L, Albumin 3.0L 10/31/20 03:56: Glucometer 151H 10/31/20 04:51: Glucometer 132H 10/31/20 05:49: Glucometer 132H 10/31/20 06:41: Glucometer 121H 10/31/20 07:41: Glucometer 98 10/31/20 08:50: Glucometer 97 10/31/20 09:49: Glucometer 98 10/31/20 10:37: Glucometer 90 10/31/20 12:15: Glucometer 154H 10/31/20 17:45: Glucometer 362H 10/31/20 23:33: Glucometer 317H 11/01/20 04:15: White Blood Count 7.4, Red Blood Count 3.50L, Hemoglobin 11.1L, Hematocrit 34L, Mean Corpuscular Volume 96, Mean Corpuscular Hemoglobin 32, Mean Corpuscular Hemoglobin Concent 33, Red Cell Distribution Width 14.6H, Platelet Count 164, Mean Platelet Volume 10.7, Immature Granulocyte % (Auto) 1, Neutrophils (%) (Auto) 88H, Lymphocytes (%) (Auto) 5L, Monocytes (%) (Auto) 7, Eosinophils (%) ( Auto) 0, Basophils (%) (Auto) 0, Neutrophils # (Auto) 6.5, Lymphocytes # (Auto) 0.3L, Monocytes # (Auto) 0.5, Eosinophils # (Auto) 0.0, Basophils # (Auto) 0.0, Immature Granulocyte # (Auto) 0.1, Blood Gas Puncture Site RIGHT RADIAL, Blood Gas Patient Temperature 37.0, Arterial Blood pH 7.32*L, Arterial Blood Partial Pressure CO2 38, Arterial Blood Partial Pressure O2 58L, Arterial Blood HCO3 19L , Arterial Blood Total CO2 19.9L, Arterial Blood Oxygen Saturation 90L, Arterial Blood Base Excess -6.2L, Raji Test YES-POS, Blood Gas Ventilator Setting YES, Blood Gas Inspired Oxygen 60%, Sodium Level 145, Potassium Level 4.7, Chloride Level 118H, Carbon Dioxide Level 17L, Anion Gap 10, Blood Urea Nitrogen 38H, Creatinine 1.30, Estimat Glomerular Filtration Rate 55, BUN/Creatinine Ratio 29, Glucose Level 329H, Calcium Level 7.4L, Corrected Calcium 8.3L, Phosphorus Level 2.3, Magnesium Level 2.7H, Total Bilirubin 0.5, Aspartate Amino Transf (AST/SGOT) 44H, Alanine Aminotransferase (ALT/SGPT) 38, Alkaline Phosphatase 47, Total Protein 5.6L, Albumin 2.9L 11/01/20 11:34: Glucometer 269H 11/01/20 12:40: Triglycerides Level 290H 11/01/20 17:30: Glucometer 239H 11/01/20 21:01: Glucometer 223H 11/01/20 23:39: Glucometer 215H 11/02/20 03:30: White Blood Count 5.2, Red Blood Count 3.21L, Hemoglobin 10.1L, Hematocrit 32L, Mean Corpuscular Volume 101H, Mean Corpuscular Hemoglobin 32, Mean Corpuscular Hemoglobin Concent 31L, Red Cell Distribution Width 14.7H, Platelet Count 150, Mean Platelet Volume 10.5, Immature Granulocyte % (Auto) 3, Neutrophils (%) (Auto) 84H, Lymphocytes (%) (Auto) 8L, Monocytes (%) (Auto) 6, Eosinophils (%) (Auto) 0, Basophils (%) (Auto) 0, Neutrophils # (Auto) 4.3, Lymphocytes # (Auto) 0.4L, Monocytes # (Auto) 0.3, Eosinophils # (Auto) 0.0, Basophils # (Auto) 0.0, Immature Granulocyte # (Auto) 0.1, Blood Gas Puncture Site RIGHT RADIAL, Blood Gas Patient Temperature 36.8, Arterial Blood pH 7.27*L, Arterial Blood Partial Pressure CO2 43, Arterial Blood Partial Pressure O2 73L, Arterial Blood HCO3 19L , Arterial Blood Total CO2 20.5L, Arterial Blood Oxygen Saturation 94, Arterial Blood Base Excess -6.6L, Raji Test YES-POS, Blood Gas Ventilator Setting YES, Blood Gas Inspired Oxygen 60%, Sodium Level 147H, Potassium Level 4.8, Chloride Level 123H, Carbon Dioxide Level 18L, Anion Gap 6, Blood Urea Nitrogen 29H, Creatinine 0.96, Estimat Glomerular Filtration Rate 78, BUN/Creatinine Ratio 30, Glucose Level 208H, Calcium Level 7.2L, Corrected Calcium 8.2L, Phosphorus Level 2.4, Magnesium Level 2.8H, Total Bilirubin 0.4, Aspartate Amino Transf (AST/SGOT) 34, Alanine Aminotransferase (ALT/SGPT) 29, Alkaline Phosphatase 41, Total Protein 5.2L, Albumin 2.8L 11/02/20 11:51: Glucometer 169H 11/02/20 13:20: Blood Gas Puncture Site RR, Blood Gas Patient Temperature 36.6, Arterial Blood pH 7.24*L, Arterial Blood Partial Pressure CO2 48H, Arterial Blood Partial Pressure O2 58L, Arterial Blood HCO3 20L, Arterial Blood Total CO2 21.2, Arterial Blood Oxygen Saturation 89L, Arterial Blood Base Excess -6.5L, Raji Test YES-POS, Blood Gas Ventilator Setting YES, Blood Gas Inspired Oxygen 55% 11/02/20 17:34: Glucometer 192H 11/02/20 23:41: Glucometer 219H 11/03/20 04:00: White Blood Count 4.4, Red Blood Count 3.03L, Hemoglobin 9.4L, Hematocrit 31L, Mean Corpuscular Volume 102H, Mean Corpuscular Hemoglobin 31, Mean Corpuscular Hemoglobin Concent 31L, Red Cell Distribution Width 14.7H, Platelet Count 148, Mean Platelet Volume 11.1, Immature Granulocyte % (Auto) 2, Neutrophils (%) (Auto) 88H, Lymphocytes (%) (Auto) 6L, Monocytes (%) (Auto) 4, Eosinophils (%) (Auto) 0, Basophils (%) (Auto) 0, Neutrophils # (Auto) 3.8, Lymphocytes # (Auto) 0.3L, Monocytes # (Auto) 0.2, Eosinophils # (Auto) 0.0, Basophils # (Auto) 0.0, Immature Granulocyte # (Auto) 0.1, Neutrophils % (Manual) 85, Lymphocytes % (Manual) 8, Monocytes % (Manual) 4, Band Neutrophils 3, Blood Morphology Comment NORMAL, Sodium Level 146H, Potassium Level 4.6, Chloride Level 121H, Carbon Dioxide Level 21, Anion Gap 4L, Blood Urea Nitrogen 27H, Creatinine 0.85, Estimat Glomerular Filtration Rate 89, BUN/Creatinine Ratio 32, Glucose Level 224H, Calcium Level 7.6L, Corrected Calcium 8.7, Phosphorus Level 2.5, Magnesium Level 2.9H, Total Bilirubin 0.4, Aspartate Amino Transf (AST/SGOT) 31, Alanine Aminotransferase (ALT/SGPT) 27, Alkaline Phosphatase 38L, Total Protein 5.1L, Albumin 2.6L, Triglycerides Level 192H 11/03/20 04:10: Blood Gas Puncture Site RIGHT RADIAL, Blood Gas Patient Temperature 35.8, Arterial Blood pH 7.26*L, Arterial Blood Partial Pressure CO2 48H, Arterial Blood Partial Pressure O2 72L, Arterial Blood HCO3 21L, Arterial Blood Total CO2 22.7, Arterial Blood Oxygen Saturation 95, Arterial Blood Base Excess -5.1L, Raji Test POSITIVE, Blood Gas Ventilator Setting YES, Blood Gas Inspired Oxygen 100 11/03/20 11:25: Blood Gas Puncture Site LEFT RADIAL, Blood Gas Patient Temperature 37.6, Arterial Blood pH 7.21*L, Arterial Blood Partial Pressure CO2 57H, Arterial Blood Partial Pressure O2 138H, Arterial Blood HCO3 22L, Arterial Blood Total CO2 23.2, Arterial Blood Oxygen Saturation 99, Arterial Blood Base Excess -5.1L, Raji Test POSITIVE, Blood Gas Ventilator Setting YES, Blood Gas Inspired Oxygen 85% 11/03/20 12:35: Glucometer 159H 11/03/20 17:15: Glucometer 155H 11/04/20 00:01: Glucometer 143H 11/04/20 04:00: White Blood Count 3.7L, Red Blood Count 2.97L, Hemoglobin 9.4L, Hematocrit 31L, Mean Corpuscular Volume 103H, Mean Corpuscular Hemoglobin 32, Mean Corpuscular Hemoglobin Concent 31L, Red Cell Distribution Width 14.7H, Platelet Count 142, Mean Platelet Volume 11.0, Immature Granulocyte % (Auto) 6, Neutrophils (%) (Auto) 85H, Lymphocytes (%) (Auto) 5L, Monocytes (%) (Auto) 4, Eosinophils (%) (Auto) 0, Basophils (%) (Auto) 0, Neutrophils # (Auto) 3.2, Lymphocytes # (Auto) 0.2L, Monocytes # (Auto) 0.1, Eosinophils # (Auto) 0.0, Basophils # (Auto) 0.0, Immature Granulocyte # (Auto) 0.2H, Percent Immature Platelet Fraction 5.5, Blood Gas Puncture Site RIGHT RADIAL, Blood Gas Patient Temperature 36, Arterial Blood pH 7.26*L, Arterial Blood Partial Pressure CO2 52H, Arterial Blood Partial Pressure O2 78L, Arterial Blood HCO3 23, Arterial Blood Total CO2 24.5, Arterial Blood Oxygen Saturation 96, Arterial Blood Base Excess -3.4L, Raji Test YES- POS, Blood Gas Ventilator Setting YES, Blood Gas Inspired Oxygen 100%, Sodium Level 146H, Potassium Level 5.9H, Chloride Level 119H, Carbon Dioxide Level 21, Anion Gap 6, Blood Urea Nitrogen 35H, Creatinine 0.84, Estimat Glomerular Filtration Rate 91, BUN/Creatinine Ratio 42, Glucose Level 193H, Calcium Level 8.1L, Corrected Calcium 9.2, Phosphorus Level 3.0, Magnesium Level 2.9H, Total Bilirubin 0.4, Aspartate Amino Transf (AST/SGOT) 29, Alanine Aminotransferase (ALT/SGPT) 26, Alkaline Phosphatase 39L, Total Protein 5.3L, Albumin 2.6L 11/04/20 11:31: Glucometer 215H 11/04/20 13:32: Sodium Level 148H, Potassium Level 5.9H, Chloride Level 121H, Carbon Dioxide Level 22, Anion Gap 5, Blood Urea Nitrogen 35H, Creatinine 0.81, Estimat Glomerular Filtration Rate 94, BUN/Creatinine Ratio 43, Glucose Level 211H, Calcium Level 8.3L 11/04/20 17:17: Glucometer 175H 11/04/20 20:35: Glucometer 223H 11/04/20 20:58: Sodium Level 149H, Potassium Level 6.2H, Chloride Level 120H, Carbon Dioxide L evel 22, Anion Gap 7, Blood Urea Nitrogen 35H, Creatinine 0.84, Estimat Glomerular Filtration Rate 91, BUN/Creatinine Ratio 42, Glucose Level 244H, Calcium Level 8.6 11/04/20 23:57: Glucometer 234H 11/05/20 00:40: Sodium Level 153H, Potassium Level 5.9H, Chloride Level 120H, Carbon Dioxide Level 25, Anion Gap 8, Blood Urea Nitrogen 36H, Creatinine 0.84, Estimat Glomerular Filtration Rate 91, BUN/Creatinine Ratio 43, Glucose Level 250H, Calcium Level 9.2 11/05/20 05:45: Sodium Level 154H, Potassium Level 4.9, Chloride Level 121H, Carbon Dioxide Level 26, Anion Gap 7, Blood Urea Nitrogen 35H, Creatinine 0.75, Estimat Glomerular Filtration Rate 103, BUN/Creatinine Ratio 47, Glucose Level 180H, Calcium Level 8.8, White Blood Count 3.4L, Red Blood Count 2.90L, Hemoglobin 9.0L, Hematocrit 30L, Mean Corpuscular Volume 102H, Mean Corpuscular Hemoglobin 31, Mean Corpuscular Hemoglobin Concent 31L, Red Cell Distribution Width 14.7H, Platelet Count 135, Mean Platelet Volume 10.4, Immature Granulocyte % (Auto) 8, Neutrophils (%) (Auto) 84H, Lymphocytes (%) (Auto) 5L, Monocytes (%) (Auto) 3, Eosinophils (%) (Auto) 0, Basophils (%) (Auto) 0, Neutrophils # (Auto) 2.8, Lymphocytes # (Auto) 0.2L, Monocytes # (Auto) 0.1, Eosinophils # (Auto) 0.0, Basophils # (Auto) 0.0, Immature Granulocyte # (Auto) 0.3H, Percent Immature Platelet Fraction 5.3, Blood Gas Puncture Site LEFT RAD, Blood Gas Patient Temperature 36.3, Arterial Blood pH 7.31*L, Arterial Blood Partial Pressure CO2 54H, Arterial Blood Partial Pressure O2 130H, Arterial Blood HCO3 27, Arterial Blood Total CO2 28.3, Arterial Blood Oxygen Saturation 99, Arterial Blood Base Excess 0.8, Raji Test YES-POS, Blood Gas Ventilator Setting YES, Blood Gas Inspired Oxygen 60%, Corrected Calcium 10.0, Phosphorus Level 3.0, Magnesium Level 2.6H, Total Bilirubin 0.4, Aspartate Amino Transf (AST/SGOT) 26, Alanine Aminotransferase (ALT/SGPT) 26, Alkaline Phosphatase 37L, Total Protein 5.2L, Albumin 2.5L, Triglycerides Level 168H 11/05/20 08:00: Blood Gas Puncture Site LT RAD, Blood Gas Patient Temperature 36.3, Arterial Blood pH 7.22*L, Arterial Blood Partial Pressure CO2 67H, Arterial Blood Partial Pressure O2 41L, Arterial Blood HCO3 27, Arterial Blood Total CO2 28.9, Arterial Blood Oxygen Saturation 65L, Arterial Blood Base Excess -0.2, Raji Test YES- POS, Blood Gas Ventilator Setting YES, Blood Gas Inspired Oxygen 65% 11/05/20 08:45: Blood Gas Puncture Site RT RAD, Blood Gas Patient Temperature 35.2, Arterial Blood pH 7.30*L, Arterial Blood Partial Pressure CO2 54H, Arterial Blood Partial Pressure O2 72L, Arterial Blood HCO3 26, Arterial Blood Total CO2 28.1, Arterial Blood Oxygen Saturation 95, Arterial Blood Base Excess 0.2, Raji Test YES-POS, Blood Gas Ventilator Setting YES, Blood Gas Inspired Oxygen 75% 11/05/20 11:42: Glucometer 129H 11/05/20 17:53: Glucometer 173H 11/05/20 23:38: Glucometer 144H 11/06/20 03:30: Blood Gas Puncture Site Right Radial, Blood Gas Patient Temperature 36.9, Arterial Blood pH 7.31*L, Arterial Blood Partial Pressure CO2 57H, Arterial Blood Partial Pressure O2 70L, Arterial Blood HCO3 28H, Arterial Blood Total CO2 29.6, Arterial Blood Oxygen Saturation 91L, Arterial Blood Base Excess 2.2, Raji Test YES-POS, Blood Gas Ventilator Setting YES, Blood Gas Inspired Oxygen 65% 11/06/20 03:38: White Blood Count 3.9L, Red Blood Count 2.91L, Hemoglobin 9.1L, Hematocrit 30L, Mean Corpuscular Volume 103H, Mean Corpuscular Hemoglobin 31, Mean Corpuscular Hemoglobin Concent 30L, Red Cell Distribution Width 14.6H, Platelet Count 135, Mean Platelet Volume 10.7, Immature Granulocyte % (Auto) 6, Neutrophils (%) (Auto) 85H, Lymphocytes (%) (Auto) 5L, Monocytes (%) (Auto) 3, Eosinophils (%) (Auto) 0, Basophils (%) (Auto) 0, Neutrophils # (Auto) 3.3, Lymphocytes # (Auto) 0.2L, Monocytes # (Auto) 0.1, Eosinophils # (Auto) 0.0, Basophils # (Auto) 0.0, Immature Granulocyte # (Auto) 0.2H, Percent Immature Platelet Fraction 5.0, Sodium Level 152H, Potassium Level 4.7, Chloride Level 119H, Carbon Dioxide Level 26, Anion Gap 7, Blood Urea Nitrogen 42H, Creatinine 0.79, Estimat Glomerular Filtration Rate 97, BUN/Creatinine Ratio 53, Glucose Level 152H, Calcium Level 8.2L, Corrected Calcium 9.4, Phosphorus Level 3.2, Magnesium Level 2.3, Total Bilirubin 0.4, Aspartate Amino Transf (AST/SGOT) 21, Alanine Aminotransferase (ALT/SGPT) 25, Alkaline Phosphatase 38L, Total Protein 5.3L, Albumin 2.5L 11/06/20 11:41: Glucometer 172H 11/06/20 17:06: Glucometer 158H 11/06/20 20:55: Glucometer 168H 11/06/20 23:42: Glucometer 161H 11/07/20 03:10: White Blood Count 3.5L, Red Blood Count 2.71L, Hemoglobin 8.3L, Hematocrit 28L, Mean Corpuscular Volume 104H, Mean Corpuscular Hemoglobin 31, Mean Corpuscular Hemoglobin Concent 29L, Red Cell Distribution Width 14.3, Platelet Count 100L, Mean Platelet Volume 11.1, Immature Granulocyte % (Auto) 3, Neutrophils (%) (Auto) 91H, Lymphocytes (%) (Auto) 3L, Monocytes (%) (Auto) 2, Eosinophils (%) (Auto) 0, Basophils (%) (Auto) 0, Neutrophils # (Auto) 3.2, Lymphocytes # (Auto) 0.1L, Monocytes # (Auto) 0.1, Eosinophils # (Auto) 0.0, Basophils # (Auto) 0.0, Immature Granulocyte # (Auto) 0.1, Percent Immature Platelet Fraction 5.4, Blood Gas Puncture Site RADIAL, Blood Gas Patient Temperature 36.3, Arterial Blood pH 7.30*L, Arterial Blood Partial Pressure CO2 60H, Arterial Blood Partial Pressure O2 78L, Arterial Blood HCO3 29H, Arterial Blood Total CO2 31.0, Arterial Blood Oxygen Saturation 94, Arterial Blood Base Excess 3.2H, Raji Test YES-POS, Blood Gas Ventilator Setting YES, Blood Gas Inspired Oxygen 80%, Sodium Level 150H, Potassium Level 5.0, Chloride Level 118H, Carbon Dioxide Level 24, Anion Gap 8, Blood Urea Nitrogen 50H, Creatinine 0.98, Estimat Glomerular Filtration Rate 76, BUN/Creatinine Ratio 51, Glucose Level 158H, Calcium Level 8.0L, Corrected Calcium 9.4, Phosphorus Level 4.2, Magnesium Level 2.4, Total Bilirubin 0.4, Aspartate Amino Transf (AST/SGOT) 23, Alanine Aminotransferase (ALT/SGPT) 30, Alkaline Phosphatase 41, Total Protein 5.1L, Albumin 2.3L 11/07/20 10:35: Heparin-Induced Platelet Ab (Alicia) Negative 11/07/20 11:16: Glucometer 141H 11/07/20 17:31: Glucometer 177H 11/07/20 19:39: Glucometer 209H 11/07/20 22:46: Glucometer 239H 11/08/20 03:45: White Blood Count 4.3, Red Blood Count 2.72L, Hemoglobin 8.4L, Hematocrit 29L, Mean Corpuscular Volume 106H, Mean Corpuscular Hemoglobin 31, Mean Corpuscular Hemoglobin Concent 29L, Red Cell Distribution Width 14.3, Platelet Count 104L, Mean Platelet Volume 11.1, Immature Granulocyte % (Auto) 4, Neutrophils (%) (Auto) 91H, Lymphocytes (%) (Auto) 2L, Monocytes (%) (Auto) 3, Eosinophils (%) (Auto) 0, Basophils (%) (Auto) 0, Neutrophils # (Auto) 3.9, Lymphocytes # (Auto) 0.1L, Monocytes # (Auto) 0.1, Eosinophils # (Auto) 0.0, Basophils # (Auto) 0.0, Immature Granulocyte # (Auto) 0.2H, Percent Immature Platelet Fraction 6.2, D- Dimer 14.82H, Blood Gas Puncture Site LEFT RAD, Blood Gas Patient Temperature 37, Arterial Blood pH 7.15*L, Arterial Blood Partial Pressure CO2 73*H, Arterial Blood Partial Pressure O2 93, Arterial Blood HCO3 24, Arterial Blood Total CO2 26.7, Arterial Blood Oxygen Saturation 97, Arterial Blood Base Excess -3.3L, Raji Test YES-POS, Blood Gas Ventilator Setting YES, Blood Gas Inspired Oxygen 100%, Sodium Level 149H, Potassium Level 5.8H, Chloride Level 115H, Carbon Diox radha Level 22, Anion Gap 12, Blood Urea Nitrogen 74H, Creatinine 2.07H, Estimat Glomerular Filtration Rate 32, BUN/Creatinine Ratio 36, Glucose Level 182H, Calcium Level 8.1L, Corrected Calcium 9.3, Phosphorus Level 6.3H, Magnesium Level 2.8H, Total Bilirubin 0.3, Aspartate Amino Transf (AST/SGOT) 20, Alanine Aminotransferase (ALT/SGPT) 24, Alkaline Phosphatase 42, Total Protein 5.6L, Albumin 2.5L, Triglycerides Level 196H 11/08/20 11:11: Glucometer 193H 11/08/20 11:30: Sodium Level 150H, Potassium Level 5.3H, Chloride Level 116H, Carbon Dioxide Level 22, Anion Gap 12, Blood Urea Nitrogen 84H, Creatinine 2.43H, Estimat Glomerular Filtration Rate 27, BUN/Creatinine Ratio 35, Glucose Level 203H, Calcium Level 8.4L 11/08/20 17:19: Glucometer 361H 11/08/20 17:25: Sodium Level 146H, Potassium Level 5.2H, Chloride Level 114H, Carbon Dioxide Level 20L, Anion Gap 12, Blood Urea Nitrogen 83H, Creatinine 2.63H, Estimat Glomerular Filtration Rate 24, BUN/Creatinine Ratio 32, Glucose Level 380H, Calcium Level 8.1L 11/08/20 19:35: Glucometer 337H 11/08/20 23:20: Glucometer 267H 11/08/20 23:30: Sodium Level 148H, Potassium Level 5.0, Chloride Level 116H, Carbon Dioxide Level 21, Anion Gap 11, Blood Urea Nitrogen 86H, Creatinine 2.77H, Estimat Glomerular Filtration Rate 23, BUN/Creatinine Ratio 31, Glucose Level 286H, Calcium Level 8.1L 11/09/20 02:28: Blood Gas Puncture Site LEFT RAD, Blood Gas Patient Temperature 37.2, Arterial Blood pH 7.25*L, Arterial Blood Partial Pressure CO2 54H, Arterial Blood Partial Pressure O2 139H, Arterial Blood HCO3 23, Arterial Blood Total CO2 24.2, Arterial Blood Oxygen Saturation 99, Arterial Blood Base Excess -3.6L, Raji Test YES-POS, Blood Gas Ventilator Setting YES, Blood Gas Inspired Oxygen 90% 11/09/20 02:40: Sodium Level 149H, Potassium Level 4.9, Chloride Level 116H, Carbon Dioxide Level 21, Anion Gap 12, Blood Urea Nitrogen 87H, Creatinine 2.79H, Estimat Glomerular Filtration Rate 23, BUN/Creatinine Ratio 31, Glucose Level 207H, Calcium Level 8.0L, White Blood Count 4.5, Red Blood Count 2.26L, Hemoglobin 7.0L, Hematocrit 23L, Mean Corpuscular Volume 103H, Mean Corpuscular Hemoglobin 31, Mean Corpuscular Hemoglobin Concent 30L, Red Cell Distribution Width 14.4, Platelet Count 98L, Mean Platelet Volume 11.1, Immature Granulocyte % (Auto) 2, Neutrophils (%) (Auto) 92H, Lymphocytes (%) (Auto) 3L, Monocytes (%) (Auto) 2, Eosinophils (%) (Auto) 0, Basophils (%) (Auto) 0, Neutrophils # (Auto) 4.2, Lymphocytes # (Auto) 0.1L, Monocytes # (Auto) 0.1, Eosinophils # (Auto) 0.0, Basophils # (Auto) 0.0, Immature Granulocyte # (Auto) 0.1, Neutrophils % (Manual) 86, Lymphocytes % (Manual) 8, Monocytes % (Manual) 4, Band Neutrophils 2, Percent Immature Platelet Fraction 6.4, Basophilic Stippling SLIGHT, Microcytosis SLIGHT, Macrocytosis SLIGHT 11/09/20 02:48: Phosphorus Level 4.8H, Magnesium Level 2.7H Microbiology 10/30/20 Gram Stain - Final, Complete 10/30/20 Sputum Culture - Final, Complete Usual upper respiratory [place] Strep constellatus Pending Labs Microbiology Date/Time Source Procedure Growth Status 10/30/20 10:39 Sputum Endotracheal Gram Stain - Final Complete 10/30/20 10:39 Sputum Culture - Final Usual upper respiratory [place] Strep constellatus Complete 10/30/20 06:00 Nasal MRSA Screen - Final MRSA not isolated Complete Laboratory Tests 10/30/20 04:17: Lab Scanned Report Referred Lab Report 10/30/20 05:40: White Blood Count 2.7, Red Blood Count 4.27, Hemoglobin 13.6, Hematocrit 39, Me an Corpuscular Volume 92, Mean Corpuscular Hemoglobin 32, Mean Corpuscular Hemoglobin Concent 35, Red Cell Distribution Width 13.9, Platelet Count 63, Mean Platelet Volume 12.1, Immature Granulocyte % (Auto) 0, Neutrophils (%) (Auto) 80, Lymphocytes (%) (Auto) 15, Monocytes (%) (Auto) 4, Eosinophils (%) (Auto) 0, Basophils (%) (Auto) 0, Neutrophils # (Auto) 2.1, Lymphocytes # (Auto) 0.4, Monocytes # (Auto) 0.1, Eosinophils # (Auto) 0.0, Basophils # (Auto) 0.0, Immature Granulocyte # (Auto) 0.0, Sodium Level 128, Potassium Level 6.0, Chloride Level 100, Carbon Dioxide Level 13, Anion Gap 15, Blood Urea Nitrogen 60, Creatinine 1.84, Estimat Glomerular Filtration Rate 37, BUN/Creatinine Ratio 33, Glucose Level 537, Calcium Level 7.9, Corrected Calcium 8.4, Phosphorus Level 4.6, Magnesium Level 2.5, Total Bilirubin 0.8, Aspartate Amino Transf (AST/SGOT) 92, Alanine Aminotransferase (ALT/SGPT) 57, Alkaline Phosphatase 43, Total Protein 7.1, Albumin 3.4 10/30/20 07:32: Blood Gas Puncture Site R RAD, Blood Gas Patient Temperature 37, Arterial Blood pH 7.32, Arterial Blood Partial Pressure CO2 36, Arterial Blood Partial Pressure O2 69, Arterial Blood HCO3 18, Arterial Blood Total CO2 19.3, Arterial Blood Oxygen Saturation 91, Arterial Blood Base Excess -6.7, Raji Test YES-POS, Blood Gas Ventilator Setting NO, Blood Gas Inspired Oxygen 80% 10/30/20 09:16: Sodium Level 133, Potassium Level 4.7, Chloride Level 102, Carbon Dioxide Level 14, Anion Gap 17, Blood Urea Nitrogen 62, Creatinine 1.77, Estimat Glomerular Filtration Rate 38, BUN/Creatinine Ratio 35, Glucose Level 554, Calcium Level 8.3, D-Dimer 1.50, Beta-Hydroxybutyrate (Chem panel) 0.70, Procalcitonin 0.70 10/30/20 10:40: Glucometer 473 10/30/20 11:00: Triglycerides Level 91 10/30/20 13:00: Glucometer 414 10/30/20 13:30: Urine Color YELLOW, Urine Clarity SL CLOUDY, Urine pH 5.0, Urine Specific Mayer >=1.030, Urine Protein TRACE, Urine Glucose (UA) 2+, Urine Ketones NEGATIVE, Urine Nitrite NEGATIVE, Urine Bilirubin NEGATIVE, Urine Urobilinogen 0.2, Urine Leukocyte Esterase NEGATIVE, Urine RBC (Auto) TRACE-I, Urine RBC RARE, Urine WBC NONE, Urine Squamous Epithelial Cells NONE, Urine Crystals NONE, Urine Bacteria NEGATIVE, Urine Casts PRESENT, Urine Granular Casts 5-10, Urine Mucus NEGATIVE, Urine Culture Indicated NO, Blood Gas Puncture Site L RAD, Blood Gas Patient Temperature 35.4, Arterial Blood pH 7.28, Arterial Blood Partial Pressure CO2 37, Arterial Blood Partial Pressure O2 103, Arterial Blood HCO3 17, Arterial Blood Total CO2 18.2, Arterial Blood Oxygen Saturation 98, Arterial Blood Base Excess -8.8, Raji Test YES-POS, Blood Gas Ventilator Setting YES, Blood Gas Inspired Oxygen 80% 10/30/20 14:04: Glucometer 442 10/30/20 15:15: Glucometer 375 10/30/20 16:27: Glucometer 363 10/30/20 17:07: Sodium Level 138, Potassium Level 3.9, Chloride Level 107, Carbon Dioxide Level 16, Anion Gap 15, Blood Urea Nitrogen 72, Creatinine 1.87, Estimat Glomerular Filtration Rate 36, BUN/Creatinine Ratio 39, Glucose Level 376, Calcium Level 7.6 10/30/20 17:33: Glucometer 352 10/30/20 18:28: Glucometer 329 10/30/20 19:54: Glucometer 281 10/30/20 20:57: Glucometer 239 10/30/20 22:10: Glucometer 214 10/30/20 22:51: Glucometer 194 10/31/20 00:00: Glucometer 197 10/31/20 00:59: Glucometer 183 10/31/20 01:58: Glucometer 155 10/31/20 03:07: Glucometer 148 10/31/20 03:10: White Blood Count 3.9, Red Blood Count 3.53, Hemoglobin 11.2, Hematocrit 34, Mean Corpuscular Volume 96, Mean Corpuscular Hemoglobin 32, Mean Corpuscular Hemoglobin Concent 33, Red Cell Distribution Width 14.0, Platelet Count 88, Mean Platelet Volume 11.8, Immature Granulocyte % (Auto) 0, Neutrophils (%) (Auto) 89, Lymphocytes (%) (Auto) 7, Monocytes (%) (Auto) 4, Eosinophils (%) (Auto) 0, Basophils (%) (Auto) 0, Neutrophils # (Auto) 3.4, Lymphocytes # (Auto) 0.3, Monocytes # (Auto) 0.1, Eosinophils # (Auto) 0.0, Basophils # (Auto) 0.0, Immature Granulocyte # (Auto) 0.0, Neutrophils % (Manual) 84, Lymphocytes % (Manual) 8, Monocytes % (Manual) 3, Band Neutrophils 5, Percent Immature Platelet Fraction 7.1, Blood Morphology Comment NORMAL, Blood Gas Puncture Site RIGHT RADIAL, Blood Gas Patient Temperature 36.8, Arterial Blood pH 7.30, Arterial Blood Partial Pressure CO2 47, Arterial Blood Partial Pressure O2 117, Arterial Blood HCO3 22, Arterial Blood Total CO2 23.6, Arterial Blood Oxygen Saturation 95, Arterial Blood Base Excess -3.3, Raji Test YES-POS, Blood Gas Ventilator Setting YES, Blood Gas Inspired Oxygen 55%, Sodium Level 144, Potassium Level 3.2, Chloride Level 114, Carbon Dioxide Level 15, Anion Gap 15, Blood Urea Nitrogen 71, Creatinine 1.81, Estimat Glomerular Filtration Rate 37, BUN/Creatinine Ratio 39, Glucose Level 150, Calcium Level 7.1, Corrected Calcium 7.9, Phosphorus Level 2.7, Magnesium Level 2.5, Total Bilirubin 0.4, Aspartate Amino Transf (AST/SGOT) 59, Alanine Aminotransferase (ALT/SGPT) 45, Alkaline Phosphatase 42, Total Protein 5.6, Albumin 3.0 10/31/20 03:56: Glucometer 151 10/31/20 04:51: Glucometer 132 10/31/20 05:49: Glucometer 132 10/31/20 06:41: Glucometer 121 10/31/20 07:41: Glucometer 98 10/31/20 08:50: Glucometer 97 10/31/20 09:49: Glucometer 98 10/31/20 10:37: Glucometer 90 10/31/20 12:15: Glucometer 154 10/31/20 17:45: Glucometer 362 10/31/20 23:33: Glucometer 317 11/01/20 04:15: White Blood Count 7.4, Red Blood Count 3.50, Hemoglobin 11.1, Hematocrit 34, Mean Corpuscular Volume 96, Mean Corpuscular Hemoglobin 32, Mean Corpuscular Hemoglobin Concent 33, Red Cell Distribution Width 14.6, Platelet Count 164, Mean Platelet Volume 10.7, Immature Granulocyte % (Auto) 1, Neutrophils (%) (Auto) 88, Lymphocytes (%) (Auto) 5, Monocytes (%) (Auto) 7, Eosinophils (%) (Auto) 0, Basophils (%) (Auto) 0, Neutrophils # (Auto) 6.5, Lymphocytes # (Auto) 0.3, Monocytes # (Auto) 0.5, Eosinophils # (Auto) 0.0, Basophils # (Auto) 0.0, Immature Granulocyte # (Auto) 0.1, Blood Gas Puncture Site RIGHT RADIAL, Blood Gas Patient Temperature 37.0, Arterial Blood pH 7.32, Arterial Blood Partial Pressure CO2 38, Arterial Blood Partial Pressure O2 58, Arterial Blood HCO3 19, Arterial Blood Total CO2 19.9, Arterial Blood Oxygen Saturation 90, Arterial Blood Base Excess -6.2, Raji Test YES-POS, Blood Gas Ventilator Setting YES, Blood Gas Inspired Oxygen 60%, Sodium Level 145, Potassium Level 4.7, Chloride Level 118, Carbon Dioxide Level 17, Anion Gap 10, Blood Urea Nitrogen 38, Crea tinine 1.30, Estimat Glomerular Filtration Rate 55, BUN/Creatinine Ratio 29, Glucose Level 329, Calcium Level 7.4, Corrected Calcium 8.3, Phosphorus Level 2.3, Magnesium Level 2.7, Total Bilirubin 0.5, Aspartate Amino Transf (AST/SGOT) 44, Alanine Aminotransferase (ALT/SGPT) 38, Alkaline Phosphatase 47, Total Protein 5.6, Albumin 2.9 11/01/20 11:34: Glucometer 269 11/01/20 12:40: Triglycerides Level 290 11/01/20 17:30: Glucometer 239 11/01/20 21:01: Glucometer 223 11/01/20 23:39: Glucometer 215 11/02/20 03:30: White Blood Count 5.2, Red Blood Count 3.21, Hemoglobin 10.1, Hematocrit 32, Mean Corpuscular Volume 101, Mean Corpuscular Hemoglobin 32, Mean Corpuscular Hemoglobin Concent 31, Red Cell Distribution Width 14.7, Platelet Count 150, Mean Platelet Volume 10.5, Immature Granulocyte % (Auto) 3, Neutrophils (%) (Auto) 84, Lymphocytes (%) (Auto) 8, Monocytes (%) (Auto) 6, Eosinophils (%) (Auto) 0, Basophils (%) (Auto) 0, Neutrophils # (Auto) 4.3, Lymphocytes # (Auto) 0.4, Monocytes # (Auto) 0.3, Eosinophils # (Auto) 0.0, Basophils # (Auto) 0.0, Immature Granulocyte # (Auto) 0.1, Blood Gas Puncture Site RIGHT RADIAL, Blood Gas Patient Temperature 36.8, Arterial Blood pH 7.27, Arterial Blood Partial Pressure CO2 43, Arterial Blood Partial Pressure O2 73, Arterial Blood HCO3 19, Arterial Blood Total CO2 20.5, Arterial Blood Oxygen Saturation 94, Arterial Blood Base Excess -6.6, Raji Test YES-POS, Blood Gas Ventilator Setting YES, Blood Gas Inspired Oxygen 60%, Sodium Level 147, Potassium Level 4.8, Chloride Level 123, Carbon Dioxide Level 18, Anion Gap 6, Blood Urea Nitrogen 29, Creatinine 0.96, Estimat Glomerular Filtration Rate 78, BUN/Creatinine Ratio 30, Glucose Level 208, Calcium Level 7.2, Corrected Calcium 8.2, Phosphorus Level 2.4, Magnesium Level 2.8, Total Bilirubin 0.4, Aspartate Amino Transf (AST/SGOT) 34, Alanine Aminotransferase (ALT/SGPT) 29, Alkaline Phosphatase 41, Total Protein 5.2, Albumin 2.8 11/02/20 11:51: Glucometer 169 11/02/20 13:20: Blood Gas Puncture Site RR, Blood Gas Patient Temperature 36.6, Arterial Blood pH 7.24, Arterial Blood Partial Pressure CO2 48, Arterial Blood Partial Pressure O2 58, Arterial Blood HCO3 20, Arterial Blood Total CO2 21.2, Arterial Blood Oxygen Saturation 89, Arterial Blood Base Excess -6.5, Raji Test YES-POS, Blood Gas Ventilator Setting YES, Blood Gas Inspired Oxygen 55% 11/02/20 17:34: Glucometer 192 11/02/20 23:41: Glucometer 219 11/03/20 04:00: White Blood Count 4.4, Red Blood Count 3.03, Hemoglobin 9.4, Hematocrit 31, Mean Corpuscular Volume 102, Mean Corpuscular Hemoglobin 31, Mean Corpuscular Hemog lobin Concent 31, Red Cell Distribution Width 14.7, Platelet Count 148, Mean Platelet Volume 11.1, Immature Granulocyte % (Auto) 2, Neutrophils (%) (Auto) 88, Lymphocytes (%) (Auto) 6, Monocytes (%) (Auto) 4, Eosinophils (%) (Auto) 0, Basophils (%) (Auto) 0, Neutrophils # (Auto) 3.8, Lymphocytes # (Auto) 0.3, Monocytes # (Auto) 0.2, Eosinophils # (Auto) 0.0, Basophils # (Auto) 0.0, Immature Granulocyte # (Auto) 0.1, Neutrophils % (Manual) 85, Lymphocytes % (Manual) 8, Monocytes % (Manual) 4, Band Neutrophils 3, Blood Morphology Comment NORMAL, Sodium Level 146, Potassium Level 4.6, Chloride Level 121, Carbon Dioxide Level 21, Anion Gap 4, Blood Urea Nitrogen 27, Creatinine 0.85, Estimat Glomerular Filtration Rate 89, BUN/Creatinine Ratio 32, Glucose Level 224, Calcium Level 7.6, Corrected Calcium 8.7, Phosphorus Level 2.5, Magnesium Level 2.9, Total Bilirubin 0.4, Aspartate Amino Transf (AST/SGOT) 31, Alanine Aminotransferase (ALT/SGPT) 27, Alkaline Phosphatase 38, Total Protein 5.1, Albumin 2.6, Triglycerides Level 192 11/03/20 04:10: Blood Gas Puncture Site RIGHT RADIAL, Blood Gas Patient Temperature 35.8, Arteri al Blood pH 7.26, Arterial Blood Partial Pressure CO2 48, Arterial Blood Partial Pressure O2 72, Arterial Blood HCO3 21, Arterial Blood Total CO2 22.7, Arterial Blood Oxygen Saturation 95, Arterial Blood Base Excess -5.1, Raji Test POSITIVE, Blood Gas Ventilator Setting YES, Blood Gas Inspired Oxygen 100 11/03/20 11:25: Blood Gas Puncture Site LEFT RADIAL, Blood Gas Patient Temperature 37.6, Arterial Blood pH 7.21, Arterial Blood Partial Pressure CO2 57, Arterial Blood Partial Pressure O2 138, Arterial Blood HCO3 22, Arterial Blood Total CO2 23.2, Arterial Blood Oxygen Saturation 99, Arterial Blood Base Excess -5.1, Raji Test POSITIVE, Blood Gas Ventilator Setting YES, Blood Gas Inspired Oxygen 85% 11/03/20 12:35: Glucometer 159 11/03/20 17:15: Glucometer 155 11/04/20 00:01: Glucometer 143 11/04/20 04:00: White Blood Count 3.7, Red Blood Count 2.97, Hemoglobin 9.4, Hematocrit 31, Mean Corpuscular Volume 103, Mean Corpuscular Hemoglobin 32, Mean Corpuscular Hemoglobin Concent 31, Red Cell Distribution Width 14.7, Platelet Count 142, [place] Platelet Volume 11.0, Immature Granulocyte % (Auto) 6, Neutrophils (%) (Auto) 85, Lymphocytes (%) (Auto) 5, Monocytes (%) (Auto) 4, Eosinophils (%) (Auto) 0, Basophils (%) (Auto) 0, Neutrophils # (Auto) 3.2, Lymphocytes # (Auto) 0.2, Monocytes # (Auto) 0.1, Eosinophils # (Auto) 0.0, Basophils # (Auto) 0.0, Immature Granulocyte # (Auto) 0.2, Percent Immature Platelet Fraction 5.5, Blood Gas Puncture Site RIGHT RADIAL, Blood Gas Patient Temperature 36, Arterial Blood pH 7.26, Arterial Blood Partial Pressure CO2 52, Arterial Blood Partial Pressure O2 78, Arterial Blood HCO3 23, Arterial Blood Total CO2 24.5, Arterial Blood Oxygen Saturation 96, Arterial Blood Base Excess -3.4, Raji Test YES-POS, Blood Gas Ventilator Setting YES, Blood Gas Inspired Oxygen 100%, Sodium Level 146, Potassium Level 5.9, Chloride Level 119, Carbon Dioxide Level 21, Anion Gap 6, Blood Urea Nitrogen 35, Creatinine 0.84, Estimat Glomerular Filtration Rate 91, BUN/Creatinine Ratio 42, Glucose Level 193, Calcium Level 8.1, Corrected Calcium 9.2, Phosphorus Level 3.0, Magnesium Level 2.9, Total Bilirubin 0.4, Aspartate Amino Transf (AST/SGOT) 29, Alanine Aminotransferase (ALT/SGPT) 26, Alkaline Phosphatase 39, Total Protein 5.3, Albumin 2.6 11/04/20 11:31: Glucometer 215 11/04/20 13:32: Sodium Level 148, Potassium Level 5.9, Chloride Level 121, Carbon Dioxide Level 22, Anion Gap 5, Blood Urea Nitrogen 35, Creatinine 0.81, Estimat Glomerular Filtration Rate 94, BUN/Creatinine Ratio 43, Glucose Level 211, Calcium Level 8.3 11/04/20 17:17: Glucometer 175 11/04/20 20:35: Glucometer 223 11/04/20 20:58: Sodium Level 149, Potassium Level 6.2, Chloride Level 120, Carbon Dioxide Level 22, Anion Gap 7, Blood Urea Nitrogen 35, Creatinine 0.84, Estimat Glomerular Filtration Rate 91, BUN/Creatinine Ratio 42, Glucose Level 244, Calcium Level 8.6 11/04/20 23:57: Glucometer 234 11/05/20 00:40: Sodium Level 153, Potassium Level 5.9, Chloride Level 120, Carbon Dioxide Level 25, Anion Gap 8, Blood Urea Nitrogen 36, Creatinine 0.84, Estimat Glomerular Filtration Rate 91, BUN/Creatinine Ratio 43, Glucose Level 250, Calcium Level 9.2 11/05/20 05:45: Sodium Level 154, Potassium Level 4.9, Chloride Level 121, Carbon Dioxide Level 26, Anion Gap 7, Blood Urea Nitrogen 35, Creatinine 0.75, Estimat Glomerular Filtration Rate 103, BUN/Creatinine Ratio 47, Glucose Level 180, Calcium Level 8.8, White Blood Count 3.4, Red Blood Count 2.90, Hemoglobin 9.0, Hematocrit 30, Mean Corpuscular Volume 102, Mean Corpuscular Hemoglobin 31, Mean Corpuscular Hemoglobin Concent 31, Red Cell Distribution Width 14.7, Platelet Count 135, Mean Platelet Volume 10.4, Immature Granulocyte % (Auto) 8, Neutrophils (%) (Auto) 84, Lymphocytes (%) (Auto) 5, Monocytes (%) (Auto) 3, Eosinophils (%) (Auto) 0, Basophils (%) (Auto) 0, Neutrophils # (Auto) 2.8, Lymphocytes # (Auto) 0.2, Monocytes # (Auto) 0.1, Eosinophils # (Auto) 0.0, Basophils # (Auto) 0.0, Immature Granulocyte # (Auto) 0.3, Percent Immature Platelet Fraction 5.3, Blood Gas Puncture Site LEFT RAD, Blood Gas Patient Temperature 36.3, Arterial Blood pH 7.31, Arterial Blood Partial Pressure CO2 54, Arterial Blood Partial Pressure O2 130, Arterial Blood HCO3 27, Arterial Blood Total CO2 28.3, Arterial Blood Oxygen Saturation 99, Arterial Blood Base Excess 0.8, Raji Test YES-POS, Blood Gas Ventilator Setting YES, Blood Gas Inspired Oxygen 60%, Corrected Calcium 10.0, Phosphorus Level 3.0, Magnesium Level 2.6, Total Bilirubin 0.4, Aspartate Amino Transf (AST/SGOT) 26, Alanine Aminotransferase (ALT/SGPT) 26, Alkaline Phosphatase 37, Total Protein 5.2, Albumin 2.5, Triglycerides Level 168 11/05/20 08:00: Blood Gas Puncture Site LT RAD, Blood Gas Patient Temperature 36.3, Arterial Blood pH 7.22, Arterial Blood Partial Pressure CO2 67, Arterial Blood Partial Pressure O2 41, Arterial Blood HCO3 27, Arterial Blood Total CO2 28.9, Arterial Blood Oxygen Saturation 65, Arterial Blood Base Excess -0.2, Raji Test YES-POS, Blood Gas Ventilator Setting YES, Blood Gas Inspired Oxygen 65% 11/05/20 08:45: Blood Gas Puncture Site RT RAD, Blood Gas Patient Temperature 35.2, Arterial Blood pH 7.30, Arterial Blood Partial Pressure CO2 54, Arterial Blood Partial Pressure O2 72, Arterial Blood HCO3 26, Arterial Blood Total CO2 28.1, Arterial Blood Oxygen Saturation 95, Arterial Blood Base Excess 0.2, Raji Test YES-POS, Blood Gas Ventilator Setting YES, Blood Gas Inspired Oxygen 75% 11/05/20 11:42: Glucometer 129 11/05/20 17:53: Glucometer 173 11/05/20 23:38: Glucometer 144 11/06/20 03:30: Blood Gas Puncture Site Right Radial, Blood Gas Patient Temperature 36.9, Arterial Blood pH 7.31, Arterial Blood Partial Pressure CO2 57, Arterial Blood Partial Pressure O2 70, Arterial Blood HCO3 28, Arterial Blood Total CO2 29.6, Arterial Blood Oxygen Saturation 91, Arterial Blood Base Excess 2.2, Raji Test YES-POS, Blood Gas Ventilator Setting YES, Blood Gas Inspired Oxygen 65% 11/06/20 03:38: White Blood Count 3.9, Red Blood Count 2.91, Hemoglobin 9.1, Hematocrit 30, Mean Corpuscular Volume 103, Mean Corpuscular Hemoglobin 31, Mean Corpuscular Hemoglobin Concent 30, Red Cell Distribution Width 14.6, Platelet Count 135, Mean Platelet Volume 10.7, Immature Granulocyte % (Auto) 6, Neutrophils (%) (Auto) 85, Lymphocytes (%) (Auto) 5, Monocytes (%) (Auto) 3, Eosinophils (%) (Auto) 0, Basophils (%) (Auto) 0, Neutrophils # (Auto) 3.3, Lymphocytes # (Auto) 0.2, Monocytes # (Auto) 0.1, Eosinophils # (Auto) 0.0, Basophils # (Auto) 0.0, Immature Granulocyte # (Auto) 0.2, Percent Immature Platelet Fraction 5.0, Sodium Level 152, Potassium Level 4.7, Chloride Level 119, Carbon Dioxide Level 26, Anion Gap 7, Blood Urea Nitrogen 42, Creatinine 0.79, Estimat Glomerular Filtration Rate 97, BUN/Creatinine Ratio 53, Glucose Level 152, Calcium Level 8.2, Corrected Calcium 9.4, Phosphorus Level 3.2, Magnesium Level 2.3, Total Bilirubin 0.4, Aspartate Amino Transf (AST/SGOT) 21, Alanine Aminotransferase (ALT/SGPT) 25, Alkaline Phosphatase 38, Total Protein 5.3, Albumin 2.5 11/06/20 11:41: Glucometer 172 11/06/20 17:06: Glucometer 158 11/06/20 20:55: Glucometer 168 11/06/20 23:42: Glucometer 161 11/07/20 03:10: White Blood Count 3.5, Red Blood Count 2.71, Hemoglobin 8.3, Hematocrit 28, Mean Corpuscular Volume 104, Mean Corpuscular Hemoglobin 31, Mean Corpuscular Hemoglobin Concent 29, Red Cell Distribution Width 14.3, Platelet Count 100, Mean Platelet Volume 11.1, Immature Granulocyte % (Auto) 3, Neutrophils (%) (Auto) 91, Lymphocytes (%) (Auto) 3, Monocytes (%) (Auto) 2, Eosinophils (%) (Auto) 0, Basophils (%) (Auto) 0, Neutrophils # (Auto) 3.2, Lymphocytes # (Auto) 0.1, Monocytes # (Auto) 0.1, Eosinophils # (Auto) 0.0, Basophils # (Auto) 0.0, Immature Granulocyte # (Auto) 0.1, Percent Immature Platelet Fraction 5.4, Blood Gas Puncture Site RADIAL, Blood Gas Patient Temperature 36.3, Arterial Blood pH 7.30, Arterial Blood Partial Pressure CO2 60, Arterial Blood Partial Pressure O2 78, Arterial Blood HCO3 29, Arterial Blood Total CO2 31.0, Arterial Blood Oxygen Saturation 94, Arterial Blood Base Excess 3.2, Raji Test YES-POS, Blood Gas Ventilator Setting YES, Blood Gas Inspired Oxygen 80%, Sodium Level 150, Potassium Level 5.0, Chloride Level 118, Carbon Dioxide Level 24, Anion Gap 8, Blood Urea Nitrogen 50, Creatinine 0.98, Estimat Glomerular Filtration Rate 76, BUN/Creatinine Ratio 51, Glucose Level 158, Calcium Level 8.0, Corrected Calcium 9.4, Phosphorus Level 4.2, Magnesium Level 2.4, Total Bilirubin 0.4, Aspartate Amino Transf (AST/SGOT) 23, Alanine Aminotransferase (ALT/SGPT) 30, Alkaline Phosphatase 41, Total Protein 5.1, Albumin 2.3 11/07/20 10:35: Heparin-Induced Platelet Ab (Alicia) Negative 11/07/20 11:16: Glucometer 141 11/07/20 17:31: Glucometer 177 11/07/20 19:39: Glucometer 209 11/07/20 22:46: Glucometer 239 11/08/20 03:45: White Blood Count 4.3, Red Blood Count 2.72, Hemoglobin 8.4, Hematocrit 29, Mean Corpuscular Volume 106, Mean Corpuscular Hemoglobin 31, Mean Corpuscular Hemoglobin Concent 29, Red Cell Distribution Width 14.3, Platelet Count 104, Mean Platelet Volume 11.1, Immature Granulocyte % (Auto) 4, Neutrophils (%) (Auto) 91, Lymphocytes (%) (Auto) 2, Monocytes (%) (Auto) 3, Eosinophils (%) (Auto) 0, Basophils (%) (Auto) 0, Neutrophils # (Auto) 3.9, Lymphocytes # (Auto) 0.1, Monocytes # (Auto) 0.1, Eosinophils # (Auto) 0.0, Basophils # (Auto) 0.0, Immature Granulocyte # (Auto) 0.2, Percent Immature Platelet Fraction 6.2, D- Dimer 14.82, Blood Gas Puncture Site LEFT RAD, Blood Gas Patient Temperature 37, Arterial Blood pH 7.15, Arterial Blood Partial Pressure CO2 73, Arterial Blood Partial Pressure O2 93, Arterial Blood HCO3 24, Arterial Blood Total CO2 26.7, Arterial Blood Oxygen Saturation 97, Arterial Blood Base Excess -3.3, Raji Test YES-POS, Blood Gas Ventilator Setting YES, Blood Gas Inspired Oxygen 100%, Sodium Level 149, Potassium Level 5.8, Chloride Level 115, Carbon Dioxide Level 22, Anion Gap 12, Blood Urea Nitrogen 74, Creatinine 2.07, Estimat Glomerular Filtration Rate 32, BUN/Creatinine Ratio 36, Glucose Level 182, Calcium Level 8.1, Corrected Calcium 9.3, Phosphorus Level 6.3, Magnesium Level 2.8, Total Bilirubin 0.3, Aspartate Amino Transf (AST/SGOT) 20, Alanine Aminotransferase (ALT/SGPT) 24, Alkaline Phosphatase 42, Total Protein 5.6, Albumin 2.5, Triglycerides Level 196 11/08/20 11:11: Glucometer 193 11/08/20 11:30: Sodium Level 150, Potassium Level 5.3, Chloride Level 116, Carbon Dioxide Level 22, Anion Gap 12, Blood Urea Nitrogen 84, Creatinine 2.43, Estimat Glomerular Filtration Rate 27, BUN/Creatinine Ratio 35, Glucose Level 203, Calcium Level 8.4 11/08/20 17:19: Glucometer 361 11/08/20 17:25: Sodium Level 146, Potassium Level 5.2, Chloride Level 114, Carbon Dioxide Level 20, Anion Gap 12, Blood Urea Nitrogen 83, Creatinine 2.63, Estimat Glomerular Filtration Rate 24, BUN/Creatinine Ratio 32, Glucose Level 380, Calcium Level 8. 1 11/08/20 19:35: Glucometer 337 11/08/20 23:20: Glucometer 267 11/08/20 23:30: Sodium Level 148, Potassium Level 5.0, Chloride Level 116, Carbon Dioxide Level 21, Anion Gap 11, Blood Urea Nitrogen 86, Creatinine 2.77, Estimat Glomerular Filtration Rate 23, BUN/Creatinine Ratio 31, Glucose Level 286, Calcium Level 8.1 11/09/20 02:28: Blood Gas Puncture Site LEFT RAD, Blood Gas Patient Temperature 37.2, Arterial Blood pH 7.25, Arterial Blood Partial Pressure CO2 54, Arterial Blood Partial Pressure O2 139, Arterial Blood HCO3 23, Arterial Blood Total CO2 24.2, Arterial Blood Oxygen Saturation 99, Arterial Blood Base Excess -3.6, Raji Test YES-POS, Blood Gas Ventilator Setting YES, Blood Gas Inspired Oxygen 90% 11/09/20 02:40: Sodium Level 149, Potassium Level 4.9, Chloride Level 116, Carbon Dioxide Level 21, Anion Gap 12, Blood Urea Nitrogen 87, Creatinine 2.79, Estimat Glomerular Filtration Rate 23, BUN/Creatinine Ratio 31, Glucose Level 207, Calcium Level 8.0, White Blood Count 4.5, Red Blood Count 2.26, Hemoglobin 7.0, Hematocrit 23, Mean Corpuscular Volume 103, Mean Corpuscular Hemoglobin 31, Mean Corpuscular Hemoglobin Concent 30, Red Cell Distribution Width 14.4, Platelet Count 98, Mean Platelet Volume 11.1, Immature Granulocyte % (Auto) 2, Neutrophils (%) (Auto) 92, Lymphocytes (%) (Auto) 3, Monocytes (%) (Auto) 2, Eosinophils (%) (Auto) 0, Basophils (%) (Auto) 0, Neutrophils # (Auto) 4.2, Lymphocytes # (Auto) 0.1, Monocytes # (Auto) 0.1, Eosinophils # (Auto) 0.0, Basophils # (Auto) 0.0, Immature Granulocyte # (Auto) 0.1, Neutrophils % (Manual) 86, Lymphocytes % (Manual) 8, Monocytes % (Manual) 4, Band Neutrophils 2, Percent Immature Platelet Fraction 6.4, Basophilic Stippling SLIGHT, Microcytosis SLIGHT, Macrocytosis SLIGHT 11/09/20 02:48: Phosphorus Level 4.8, Magnesium Level 2.7 Discharge Home Medications: Active Scripts Active Reported Metformin HCl ER (Metformin HCl) 500 Mg Tab.er.24h 1,000 Mg PO DAILY TAKES 2 (500MG) TABS Glimepiride 2 Mg Tablet 2 Mg PO DAILY Atorvastatin Calcium 20 Mg Tablet 20 Mg PO HS Lisinopril 20 Mg Tablet 20 Mg PO DAILY Instructions to patient/family Please see electronic discharge instructions given to patient. DIANA MELGAR DO Nov 09, 2020 17:08
== END 2020-11-09 14:25 | disposition expired | DRG 207 ==
LOC: ICU 04:17
PROVIDERS: ADMIT Internal Medicine; ATTEND Internal Medicine
PROC: 5A1955Z Respiratory Ventilation, Greater than 96 Consecutive Hours (ICD-10-PCS; principal; 2020-10-30)
PROC: 0BH17EZ Insertion of Endotracheal Airway into Trachea, Via Natural or Artificial Opening (ICD-10-PCS; 2020-10-30)
PROC: 5A09357 Assistance with Respiratory Ventilation, Less than 24 Consecutive Hours, Continuous Positive Airway Pressure (ICD-10-PCS; 2020-10-30)
PROC: 02HV33Z Insertion of Infusion Device into Superior Vena Cava, Percutaneous Approach (ICD-10-PCS; 2020-10-30)
DX: U07.1 COVID-19 (principal); J80 Acute respiratory distress syndrome; J12.82 Pneumonia due to coronavirus disease 2019; J15.9 Unspecified bacterial pneumonia; E11.10 Type 2 diabetes mellitus with ketoacidosis without coma; N17.9 Acute kidney failure, unspecified; E87.1 Hypo-osmolality and hyponatremia; R57.9 Shock, unspecified; D68.59 Other primary thrombophilia; E87.2 Acidosis; Z68.41 Body mass index [BMI] 40.0-44.9, adult; Z66 Do not resuscitate; Z51.5 Encounter for palliative care; E11.65 Type 2 diabetes mellitus with hyperglycemia; K21.9 Gastro-esophageal reflux disease without esophagitis; E78.5 Hyperlipidemia, unspecified; I10 Essential (primary) hypertension; T38.0X5A Adverse effect of glucocorticoids and synthetic analogues, initial encounter; D72.810 Lymphocytopenia; D69.59 Other secondary thrombocytopenia; E87.5 Hyperkalemia; E66.9 Obesity, unspecified; R74.01 Elevation of levels of liver transaminase levels; E78.1 Pure hyperglyceridemia; D64.9 Anemia, unspecified; F17.210 Nicotine dependence, cigarettes, uncomplicated; Z79.84 Long term (current) use of oral hypoglycemic drugs; Z79.899 Other long term (current) drug therapy; Z96.652 Presence of left artificial knee joint; Z91.013 Allergy to seafood; Z73.0 Burn-out
CPT/HCPCS: 36415; 71045; 80048; 80053; 81000; 82010; 82805; 82947; 83735; 84100; 84145; 84478; 85007; 85025; 85027; 85379; 86022; 87070; 87081; 87205; 94002; 94003; 94640; 94660; 94799